=== PATIENT | female | born 1960 | race Caucasian/White ===

== ENCOUNTER 2023-11-06 20:26 | Inpatient (IN) | payer OTHER, SELFPAY ==
[2023-11-06 20:28] VITALS: BP 152/64
[2023-11-06 23:21] VITALS: BP 156/68
[2023-11-06] MEDS: NEURONTIN 800 MG PO (23:43)
[2023-11-07] VITALS (10 sets, daily range): BP systolic 111–149; BP diastolic 46–86; BMI 37.8
[2023-11-07] MEDS: NEURONTIN 900 MG PO ×2 (00:48→21:23)
[2023-11-07] MEDS: APRESOLINE 5 MG IV (00:49)
--- NOTE | 2023-11-07 03:29 | DOWNTIME ---
There was a [employer] Client Geographic Analyst Downtime on 11/07/2023 from 0100 to 11/07/2023 at 0252. Downtime documentation of patient's care, including medication administrations, has been reconciled in the electronic record per guidelines. Refer to the
patient's paper chart under the miscellaneous tab to see printed paper medication records and downtime forms.
--- NOTE | 2023-11-07 03:50 | PTCARENOTE ---
Pt. received as transfer from [facility] into room 4144. EMS reported that pt. complained of CP 3/10 during transport and recieved 4 baby aspirin and 1 SL nitro. EKG obtained in ambulance read NSR. Upon arrival, pt. reported CP had resolved.
Patient placed on tele monitor, reading NSR/sinus lucian with HR 50s-60s. Admission completed and pt oriented to room. Pt. ambulating independently in room without difficulty. Plan of care discussed and pt. verbalizes understanding. Can make needs
known. Call hodges within reach.
[2023-11-07 06:01] LABS: Hematocrit 29.4 % (37.0-47.0); Mean Corpuscular Hgb 29.3 pg (27.0-31.0); Mean Corpuscular Volume 86.2 fL (81.0-99.0); Mean Platelet Volume 11.2 fL (7.4-10.4); Platelet Count 169 10^3/uL (130-400); Red Blood Cell Count 3.41 10^6/uL (4.20-5.40); Red Cell Dist. Width 14.2 % (11.5-14.5); White Blood Cell Count 5.1 10^3/uL (4.8-10.8)
[2023-11-07 06:11] LABS: INR 1.06; PT 13.6 Sec (11.4-14.6)
[2023-11-07 06:31] LABS: ALT (SGPT) 29 U/L (0-35); AST (SGOT) 35 U/L (14-36); Albumin 3.2 g/dl (3.5-5.0); Alkaline Phosphatase 109 U/L (38-126); Blood Urea Nitrogen 15 mg/dl (7-17); Calcium 9.2 mg/dl (8.4-10.2); Carbon Dioxide 25 mmol/L (22-30); Chloride 107 mmol/L (98-107); Direct Bilirubin 0.2 mg/dl (0.0-0.4); Estimated Creatinine Clearance 82 ml/min; Glucose 130 mg/dl (70-99); HDL Cholesterol 33 mg/dl; LDL Cholesterol, Calculated 31 mg/dl; Magnesium 1.8 mg/dl (1.6-2.3); Potassium 3.9 mmol/L (3.5-5.1); Sodium 137 mmol/L (135-145); Total Bilirubin 0.8 mg/dl (0.2-1.3); Total Cholesterol 77 mg/dl (50-199); Total Protein 5.3 g/dl (6.3-8.2); Triglyceride 65 mg/dl (10-149); Very Low Density Lipoprotein 13 mg/dl (0-30); eGFR > 60.00
--- NOTE | 2023-11-07 07:16 | HPS.HSE ---
Addendum entered and electronically signed by NAVEEN Zhang 11/08/23 11:08:
Past Surgical History:
Gastric bypass (Rad-en-Y)
Original Note:
Family Physician
-
Family Physician: Gaurav Schreiber
Chief Complaint
-
Chest pain
History of Present Illness
63 y/o pleasant woman who was transferred from [facility] with hx of HI/CAD S/P PCI stent to LAD in August 2023. Pt was in Cardiac rehab @ [facility] on Sunday11/02/23 when she developed 10/10 substernal chest pain with radiation to the neck/jaw. Denies associated
SOB/diaphoresis, N/V. States she received SL NTG x3 without relief and was referred to [facility]-ED. States pain finally resolved after receiving morphine in the ED. States troponin and EKG were unrevealing, but given her hx of CAD it was felt prudent
that she received a cath. Left heart catheterization on Sunday11/04/23 revealed critical and extensively calcified mid left anterior descending as culprit vessel. Pt also had an echocardiogram which showed a moderate and moderately elevated
pulmonary artery pressure, EF 65-70%. Pt was referred to for evaluation of CABG (MIDCAB). Of note, pt is on Plavix for previous stent, last dose was Sunday11/04/2023.
Medical History
Past Medical History
Past Medical History: Reports Other
Additional Past Medical History:
-Hx HI/CAD S/P PCI with DENISSE to LAD
-[place]
-T2DM since age of 18, on insulin with hgb A1C of 7.2
-Diabetic neuropathy
-PAF S/P ablation, 2020
-PSVT S/P ablation, 2020
-HTN
-HLD
-Class 2 obesity (BMI 37.6)
Past Surgical History: Reports Other
Additional Past Surgical History:
-S/P b/l cataracts
-S/p Repair of retinal detachment, 2020
-S/P b/l carpal tunnel
-S/p Cholecystectomy
-S/P Appendectomy
-S/P Left TKA
-S/p Release of trigger finger
Social History
Unable to obtain full social history at this time due to: Other
Tobacco: Smoker (quit 35 years ago)
Alcohol: Occasional
Drug: None
Personal: (with 2 children)
Living: With Family
Employment: Disabled (x 20 yrs)
Family History
Family History: CAD (father had CABG is living @ age of 101) and Other
Allergies / Home Medications
Allergies reflects when Allergies were last updated in [facility].
Home Medications with original date entered in [facility]
Allergy/Medication List:
Adhesive tape (hives)
Fish oil (unknown)
Review of Systems
-
Unable to obtain full review of systems at this time due to: Other
A 12 point ROS was completed and negative except as noted: Yes
Cardiac: Reports Chest Pain
Physical Exam
Vital Signs
Vital Signs
Temp Pulse Resp BP Pulse Ox
97.8 F 61 18 138/51 95
11/07/23 05:50 11/07/23 05:50 11/07/23 05:50 11/07/23 05:50 11/07/23 05:50
Physical Exam
General: Well Developed and Well Nourished
HEENT: NormoCephalic, Moist mucous membranes, Atraumatic, [place] Conjunctivae and No Ptosis
Respiratory: Clear
Cardiac: S1/S2 and Regular Rhythm
Breast: Deferred by me
GI: Soft, Non Tender, Non Distended and Normal Bowel Sounds
Rectal: Deferred by Provider
Genito-urinary: Deferred by me
Skin: Warm
Neuro: Awake, Alert, Oriented and AO x 3
Psych: Calm
Laboratory Results
-
11/07/23 05:47
11/07/23 05:47
Laboratory Results
PT 13.6 Sec (11.4-14.6) 11/07/23 05:47
INR 1.06 11/07/23 05:47
APTT 32.0 Sec (23.4-35.0) 11/07/23 05:47
Total Bilirubin 0.8 mg/dl (0.2-1.3) 11/07/23 05:47
AST 35 U/L (14-36) 11/07/23 05:47
ALT 29 U/L (0-35) 11/07/23 05:47
Alkaline Phosphatase 109 U/L (38-126) 11/07/23 05:47
Data Reviewed
-
Diagnostic Radiology: Image Personally Visualized and interpreted and Report Reviewed by me
Lab Data: Labs Reviewed by me
Old Records: Requested and Reviewed
Impression/Plan
-
IMPRESSION:
63 y/o pleasant woman with severe LAD disease referred from [facility] for CABG evaluation. Of note pt's echo showed moderate , and was administered Plavix on 11/04/23
PLAN:
-CABG evaluation
-Dr. Mccoy to review imaging and see pt
-Pt will need Plavix washout
[2023-11-07 08:34] LABS: Urine Albumin Negative (Neg - Trace); Urine Bilirubin Negative (Negative); Urine Character Slightly Cloudy (Clear); Urine Color Yellow; Urine Glucose Negative (Negative); Urine Ketone Negative (Negative); Urine Leukocyte 1+ (Negative); Urine Nitrite Positive (Negative); Urine Occult Blood Negative (Negative); Urine Specific Gravity 1.015 (<1.030); Urine Urobilinogen Negative (Neg - 1+)
[2023-11-07 08:59] LABS: Urine Red Blood Cell 0-2 /HPF (0-2); Urine White Cell 30-40 /HPF (0-5)
[2023-11-07 09:00] LABS: Urine Bacteria Many (Negative)
[2023-11-07] MEDS: BETAPACE 40 MG PO ×2 (09:03→21:23)
[2023-11-07] MEDS: ASPIR LOW (ENTERIC COATED) 81 MG PO (09:03)
[2023-11-07] MEDS: VITAMIN D3 (cholecalciferol) 50 MCG PO (09:05)
[2023-11-07] MEDS: IMDUR (EXTENDED RELEASE) 60 MG PO (09:05)
[2023-11-07] MEDS: PROTONIX PO (09:06)
--- NOTE | 2023-11-07 10:24 | PTCARENOTE ---
SR HR 60s. RA. self care. no CP. at bedside. sent via stretcher for all pre op testing to be done.
--- NOTE | 2023-11-07 11:15 | CON.CAR ---
Addendum entered and electronically signed by Kale Arias MD 11/07/23 17:07:
63 yo female with CAD, prior stenting, paroxysmal A fib (prior PVI), on xarelto, moderate is admitted with unstable angina, and plans for inpatient CABG evaluation. She is chest pain free. Exam with RRR, II/ systolic murmur, no edema. Tele: NSR
60s. Echo images reviewed: EF 65%, moderate (mean grad 21, GEOVANI 1.1 cm2).
Discussed with CT surgery. Tentative plan for CABG, AVR, MAZE, clip on Sunday.
Continue ASA, heparin drip.
Original Note:
Consultation
Consultation Request
Date/Time Consultation Requested: 11/06/23 1635
Date/Time Consultation Performed: 11/07/23 1115
Requesting Provider: Isela Orellana
Performing Provider: Ashly HODGE for Dr. Arias
Reason for Consultation: CAD
Medical History
-
Chief Complaint: chest pain
History of Present Illness:
63 y/o female (follows with Dr. Bay as OP) with PMH CAD with stenting, PAF with hx ablation, ADELAIDA (no longer on CPAP after recall), dyslipidemia, and IDDM who is transferred from [facility] for eval for surgical management of her CAD
with MIDCAB. Briefly, she had hx multiple stents with most recent stenting August 2023. On Sunday11/02/23, while in cardiac rehab, she developed chest pain. Trop was unremarkable per chart. She had a left heart cath, which showed critical and
extensively calcified mid left anterior descending as culprit vessel (cardiac cath report not available to me at this time). Otherwise, echo reportedly showed EF 65-70%, moderate and moderately elevated pulmonary artery pressure (echo report also
not available to me at this time). She was transferred to evaluate for surgery as above.
Past Medical History
Past Medical History: Arrhythmias, CAD, Hypercholesterolemia and NIDDM
Social History
Tobacco: Former Smoker
Family History
Family History: CAD
Allergies / Home Medications
Allergy/AdvReac Type Severity Reaction Status Date / Time
adhesive tape Allergy Unknown Verified 11/06/23 21:28
fish oil Allergy Unknown Verified 11/06/23 21:28
�Medication �Instructions �Recorded �Confirmed �Type
atorvastatin 40 mg tablet 40 mg PO DAILY 11/06/23 11/06/23 History
cholecalciferol (vitamin D3) 50 50 mcg PO DAILY 11/06/23 11/06/23 History
mcg (2,000 unit) tablet
dexlansoprazole 60 mg 60 mg PO DAILY 11/06/23 11/06/23 History
capsule,biphase delayed release
ezetimibe 10 mg tablet 10 mg PO DAILY 11/06/23 11/06/23 History
famotidine 20 mg tablet 20 mg PO HS 11/06/23 11/06/23 History
furosemide 20 mg tablet 20 mg PO BID 11/06/23 11/06/23 History
gabapentin 300 mg capsule 900 mg PO TID 11/06/23 11/06/23 History
isosorbide mononitrate 60 mg 120 mg PO DAILY 11/06/23 11/06/23 History
tablet,extended release 24 hr
losartan 25 mg tablet 25 mg PO DAILY 11/06/23 11/06/23 History
nitroglycerin 0.4 mg sublingual 0.4 mg sublingual Q5M PRN chest 11/06/23 11/07/23 History
tablet pain
potassium chloride 20 mEq 20 meq PO DAILY 11/06/23 11/06/23 History
tablet,extended release(part/cryst)
sotalol 80 mg tablet 40 mg PO BID 11/06/23 11/06/23 History
Review of Systems
-
History Source: Patient
All other systems: Negative unless noted
Cardiac: Chest Pain
Physical Exam
Vital Signs
Temp Pulse Resp BP Pulse Ox
98.1 F 62 20 144/62 98
11/07/23 07:49 11/07/23 09:00 11/07/23 07:49 11/07/23 07:52 11/07/23 07:49
Lab Results
11/07/23 05:47
11/07/23 05:47
Physical Exam
General: Well Developed, Well Nourished and No Apparent Distress
HEENT: Normocephalic and Anicteric
Respiratory: Clear and Non Labored Respirations
Cardiac: Regular Rhythm and Murmur (II/ systolic)
Musculoskeletal: No Edema
Skin: Warm and Dry
Neuro: AO x 3
Psych: Calm
Impression / Plan
-
CAD:
-severe, with hx multiple stents (most recent August 2023), now requiring surgery. Plavix being washed out.
-continue ASA and statin
-baseline EKG ordered and reviewed SB [address]/T abnormalities
-plan per CT surgery
Aortic stenosis:
-moderate by echo report
Type I DM:
-on insulin pump
-diabetic CERAMIC COATER consulted
PAF:
-hx PVI
-on sotalol as OP- continue- follow telemetry, baseline EKG acceptable QTC
-Xarelto held for surgery- resume OAC when safe post-op. Last dose was Sunday per patient. [id number] score is at least 4 for age, DM, CAD, and female.
Dyslipidemia:
-check lipids
-continue atorvastatin and ezetimibe
ADELAIDA:
-hasn't been on CPAP after hers was recalled
-this should be reassessed in future
Data Reviewed
-
EKG: Tracing Personally Visualized and interpreted (SB at 58 BPM)
Radiology: Report Reviewed by me (CXR: No active cardiopulmonary disease.)
Labs: Labs Reviewed by me
Old Records: Reviewed (reviewed available progress note from [facility] 11/05/23- summarized in HPI above)
--- NOTE | 2023-11-07 11:30 | PTCARENOTE ---
Assumed care of pt from prev nsg shift; Pt had just arrived back on the floor from having testing completed. Pt AAOx3 w/no c/o CP or SOB. Pt able to ambulate unassisted from stretcher to chair. This RN discussed pt's insulin pump & checking glucose
levels. Pt unhappy with the need for fingerstick glucose checks when 'her meter keeps track'. Pt also doesn't keep track of her insulin dosing because 'the meter and the pump take care of that for me'. This RN spoke w/CT surgery PA & rec'd orders
for pt's own insulin pump & the wide area network systems administrator to see pt today. Discussed w/pt & pt willing to speak w/educator. Pt's VS stable w/HR in the 60's & BP 139/51. Pt is SR on telemetry monitoring. Plan of care ongoing.
--- NOTE | 2023-11-07 12:11 | CM ---
Reviewed chart. Met with Mrs. Ritter to review discharge plans. She states prior to admission she resides with her spouse in a spilt level home without any steps to enter. She states she has four steps to get to to the main living area and then ten
steps to get to bedroom/full bathroom. She states prior to admission she was independent with ambulation and adls. She states she does not have any DME in the home. She states she has a prescription plan. She states her spouse will be home to
assist in her care if needed. Medical work-up in progress. The discharge plan is to return home with her spouse when medically stable.
--- NOTE | 2023-11-07 12:37 | PN.DE.MGMTRT ---
Insulin Management
- -
11/07/2023: Diabetes Management Consult
63 y/o pleasant woman who was transferred from [facility] with hx of HI/CAD S/P PCI stent to LAD in August 2023. Pt was in Cardiac rehab @ [facility] on Sunday11/02/23 when she developed 10/10 substernal chest pain with radiation to the neck/jaw--> Cardiac cath-->
extensive LAD disease--> refereed to for CABG.
PMH: HTN, CAD/HI s/p PCI with DENISSE to LAD, PAF S/P ablation, 2020, PSVT S/P ablation 2020, HLD, IDDMx 45 years and using the insulin pump x35 yrs, Diabetic neuropathy and Class 2 obesity (BMI 37.6). Routinely sees Endo @ [facility] Dr. Thomas
Currently using Medtronic 780 G Insulin pump with Guardian Sensor and NovoLog insulin.
Pt awake, A/O x3, offers no complaints, able to discuss diabetes management.
Current glucose via sensor is 116. Pt has placed her lunch order and is waiting for her tray
Was notified by CV team that Pt was very reluctant about getting accucheks done.
Upon discussion, pt became very emotional, stating that she has been through a lot these past 4 days and wants to have some type of control over her life.
Gently explained to pt the process of using her own pump while here in the hospital, reviewed bedside worksheet and need for Nursing staff to check her blood sugars ACHS.
Current pump settings
Basal ICR ISF 12am - 12am 1:40
12am - 2am 1.80 12am - 7am 6
2am - 8pm 1.60 7am - 5pm 5 Target 90to 110
8pm - 12am 1.75 5pm - 12am 5
24 hour total 39.4 units
Explained to pt that in the event that she has been schedule for CABG, the insulin pump will be discontinued the morning of surgery and her glucose will be managed using the continuous insulin drip x48 hrs after surgery and she was agreeable.
Pt states that she does not use her basal settings when pump is in auto mode and that she only corrects and boluses at meal times
Will change to 1600cal, pt is only 5'1
Diabetes History
- -
Type of Diabetes: 2 requiring insulin
Pre-Admission Diabetes Regimen
11/07/23
05:47
Creatinine 0.7
Lab Results
Hemoglobin A1c 7.0 % (4.0-5.6) H 11/07/23 05:47
Insulin Pump Settings
IP Diabetes Regimen
11/07/23
05:47
Glucose 130 H
Meal type: Breakfast
Meal type: Breakfast
Amount consumed: 100%
Amount consumed: 100%
Patient Education
[2023-11-07] MEDS: HEPARIN 25000 UNITS/250 ML IV (16:26)
[2023-11-07 16:45] LABS: Hematocrit 32.6 % (37.0-47.0); Hemoglobin 11.3 g/dL (12.0-16.0); Mean Corp Hgb Conc. 34.7 g/dL (33.0-37.0); Mean Corpuscular Hgb 29.9 pg (27.0-31.0); Mean Corpuscular Volume 86.2 fL (81.0-99.0); Mean Platelet Volume 10.7 fL (7.4-10.4); Platelet Count 172 10^3/uL (130-400); Red Blood Cell Count 3.78 10^6/uL (4.20-5.40); Red Cell Dist. Width 14.1 % (11.5-14.5)
[2023-11-07 17:03] LABS: APTT 28.2 Sec (23.4-35.0)
[2023-11-07] MEDS: TYLENOL 650 MG PO (17:04)
[2023-11-07] MEDS: ZETIA 10 MG PO (17:06)
[2023-11-07] MEDS: LIPITOR 40 MG PO (17:06)
[2023-11-07 18:00] LABS: Glucose - Point of Care 173 mg/dl (70-99)
[2023-11-07] MEDS: PATIENT'S OWN INSULIN PUMP 5 UNITS SC (19:19)
[2023-11-07 23:03] LABS: Glucose - Point of Care 193 mg/dl (70-99)
[2023-11-07] MEDS: PATIENT'S OWN INSULIN PUMP 0.9 UNITS SC (23:06)
[2023-11-07 23:26] LABS: APTT 61.6 Sec (23.4-35.0)
[2023-11-08 05:18] VITALS: BP 118/47
[2023-11-08 05:20] VITALS: BMI 37.9
[2023-11-08 05:34] LABS: Glucose - Point of Care 134 mg/dl (70-99)
[2023-11-08 05:42] LABS: Hemoglobin 10.8 g/dL (12.0-16.0); Mean Corp Hgb Conc. 33.8 g/dL (33.0-37.0); Mean Corpuscular Volume 88.9 fL (81.0-99.0); Mean Platelet Volume 10.8 fL (7.4-10.4); Platelet Count 165 10^3/uL (130-400); Red Cell Dist. Width 14.2 % (11.5-14.5); White Blood Cell Count 4.1 10^3/uL (4.8-10.8)
[2023-11-08 06:05] LABS: APTT 90.2 Sec (23.4-35.0)
[2023-11-08 06:07] LABS: HDL Cholesterol 38 mg/dl; LDL Cholesterol, Calculated 35 mg/dl; Total Cholesterol 84 mg/dl (50-199); Triglyceride 58 mg/dl (10-149); Very Low Density Lipoprotein 11 mg/dl (0-30)
--- NOTE | 2023-11-08 06:24 | W.PN.CT ---
Today's Communication / Plan
-
-no issues overnight, no CP
-Plavix washout
-plans for AVR/CABG/maze/clip on Saturday 11/[address] Mccoy
-iv Heparin renewed
-workup ongoing
Assessment / Plan
-
-Unstable angina at Cardiac rehab @ [facility] on Sunday11/02/23- no relief with sl Nitro, improved with Morphine
-Left heart catheterization on Sunday11/04/23 revealed critical and extensively calcified mid left anterior descending as culprit vessel.
-Echocardiogram revealed a moderate and moderately elevated pulmonary artery pressure, EF 65-70%
-on Plavix for recent stent, last dose on Sunday11/05/23
-transferred to on 11/05 for evaluation for CABG and possibly AVR
-Hx MS/CAD S/P PCI with DENISSE to LAD in August 2023
-[place]
-T2DM since age of 18, on insulin with hgb A1C of 7.2
-Diabetic neuropathy
-PAF S/P ablation, 2020
-PSVT S/P ablation, 2020
-HTN
-HLD
-Class 2 obesity (BMI 37.6)
-S/P b/l cataracts
-S/p Repair of retinal detachment, 2020
-S/P b/l carpal tunnel
-S/p Cholecystectomy
-S/P Appendectomy
-S/P Left TKA
-S/p Release of trigger finger
-Gastric bypass noted on CT
Discussed patient care with: Nursing and Care Team
Subjective
-
Date of Service: November 08, 2023
Objective Data
-
Lab Results
11/08/23 05:29
11/07/23 05:47
PT 13.6 Sec (11.4-14.6) 11/07/23 05:47
INR 1.06 11/07/23 05:47
APTT 90.2 Sec (23.4-35.0) H 11/08/23 05:29
Vital Signs
Vital Signs
Temp Pulse Resp BP Pulse Ox
97.9 F 55 18 118/47 97
11/08/23 05:17 11/08/23 05:18 11/08/23 05:17 11/08/23 05:18 11/08/23 05:17
CT Intake/Output/Weight
11/07/23 11/07/23 11/08/23
06:59 18:59 06:59
Intake Total 240 / 240
Balance 240 / 240
SaO2: 97
Physical Exam
-
General: Awake and AOx3
Cardiovascular: Regular rate & rhythm, Murmur (2/6 systolic @ lsb) and No Rub
Respiratory: Decreased Breath Sounds
Extremities: No Edema
Data Reviewed
-
Lab Results: Results Reviewed
Medications: Active Meds Reviewed
Chest X-Ray: Report Reviewed and Image Reviewed
ECG: Report Reviewed and Image Reviewed
--- NOTE | 2023-11-08 06:48 | PTCARENOTE ---
Pt. remains NSR/sinus lucian on tele with HR 50s-60s. VSS. Pt. denies chest pain and SOB. Heparin gtt currently infusing at 12ml/hr. R radial cath site dry/intact with ecchymosis noted. Ambulating independently in room without difficulty. Plan
of care discussed and patient verblizes understanding. Call hodges within reach.
[2023-11-08 07:01] VITALS: BP 131/45
--- NOTE | 2023-11-08 07:28 | W.PN.CD ---
Today's Communication / Plan
-
ok to shower off UFH
OHS after plavix washout
Impression / Plan
-
CAD:
-severe, with hx multiple stents (most recent August 2023), now requiring surgery. Plavix being washed out.
-continue ASA and statin
-I reviewed angio and older films from June and August 2023. There is significant disease in prox and mid LAD, ostial cx, ramus which has ostial and distal stents both occluded, and ostial RCA (ISR from June 2023 stent procedure). I think she
should undergo as complete a revasc as possible. This would most likely mean distal LAD, either D1 or mid LAD, LPL and RCA.
Aortic stenosis:
-moderate by echo report and exam
-Strong consideration to AVR at time of CABG
Type I DM:
-on insulin pump
-diabetic TRANSFORMER ASSEMBLER consulted
PAF:
-hx PVI
-on sotalol as OP- continue- follow telemetry, baseline EKG acceptable QTC
-Xarelto held for surgery- resume OAC when safe post-op. Last dose was Sunday per patient. [id number] score is at least 4 for age, DM, CAD, and female. Currently on UFH
Dyslipidemia:
-check lipids
-continue atorvastatin and ezetimibe
ADELAIDA:
-hasn't been on CPAP after hers was recalled
-this should be reassessed in future
Physical Exam
Vital Signs/Labs
Vital Signs
Temp Pulse Resp BP Pulse Ox
97.5 F 55 18 118/47 97
11/08/23 06:59 11/08/23 05:18 11/08/23 06:59 11/08/23 05:18 11/08/23 06:59
11/07/23 11/08/23 11/09/23
06:59 06:59 06:59
Actual Weight 200 lb 2.876 oz 200 lb 9.93 oz
08/22/24 05:29
11/07/23 05:47
PT 13.6 Sec (11.4-14.6) 11/07/23 05:47
INR 1.06 11/07/23 05:47
APTT 90.2 Sec (23.4-35.0) H 11/08/23 05:29
Magnesium 1.8 mg/dl (1.6-2.3) 11/07/23 05:47
Triglycerides 58 mg/dl (10-149) 11/08/23 05:29
LDL Cholesterol, Calc 35 mg/dl 11/08/23 05:29
VLDL Cholesterol, Calc 11 mg/dl (0-30) 11/08/23 05:29
HDL Cholesterol 38 mg/dl 11/08/23 05:29
Physical Exam
Constitutional: No acute distress and Comfortable
Cardiovascular: Rhythm & rate is regular and Systolic murmur present (2/6 mid peaking murmur)
Respiratory: Respiratory effort normal, Lungs clear to auscul., Wheeze Absent and Crackles Absent
GI: Soft and Non tender
Neuro/Psych: AO x 3 and Motor deficits absent
Data Reviewed
-
Date of Service: November 08, 2023
[2023-11-08 07:52] LABS: Glucose - Point of Care 121 mg/dl (70-99)
--- NOTE | 2023-11-08 07:59 | PN.DE.MGMTRT ---
Insulin Management
- -
11/08/2023: Diabetes Management Consult Follow up
63 y/o pleasant woman who was transferred from [facility] with hx of MS/CAD S/P PCI stent to LAD in August 2023. Pt was in Cardiac rehab @ [facility] on Sunday11/02/23 when she developed 10/10 substernal chest pain with radiation to the neck/jaw--> Cardiac cath-->
extensive LAD disease--> refereed to for CABG.
PMH: HTN, CAD/MS s/p PCI with DENISSE to LAD, PAF S/P ablation, 2020, PSVT S/P ablation 2020, HLD, IDDMx 45 years and using the insulin pump x35 yrs, Diabetic neuropathy and Class 2 obesity (BMI 37.6). Routinely sees Endo @ [facility] Dr. Thomas
Currently using Medtronic 780 G Insulin pump with Guardian Sensor and NovoLog insulin and [place] advanced infusion set.
Pt awake, A/O x3, offers no complaints, oob visiting with son, able to discuss diabetes management.
Initially patient was reluctant to POC testing, preferred to rely only on her sensor. Discussed at length the difference between sensor and fingerstick. Her concern is her sensor is sometimes 30 points different from the POC. Reassured that there
may be up to a 25% allowable difference between the two.
She is doing well using her own pump while here in the hospital, reviewed bedside worksheet.
Current pump settings
Basal ICR ISF 12am - 12am 1:40
12am - 2am 1.80 12am - 7am 6
2am - 8pm 1.60 7am - 5pm 5 Target 90to 110
8pm - 12am 1.75 5pm - 12am 5
24 hour total 39.4 units
Glucose range 130 to 193 yesterday, patient did take corrections, glucose 121 fasting this AM. Will make no change to pump settings.
Patient for CABG 11/11, she is aware the insulin pump will be discontinued the morning of surgery and her glucose will be managed using the continuous insulin drip during surgery x48 hrs after surgery and she was agreeable.
Will change to 1600cal, pt is only 5'1
Diabetes History
- -
Type of Diabetes: 1
Pre-Admission Diabetes Regimen
Lab Results
Hemoglobin A1c 7.0 % (4.0-5.6) H 11/07/23 05:47
Insulin Pump Settings
IP Diabetes Regimen
11/07/23 11/07/23 11/08/23
17:59 23:01 05:33
POC Glucose 173 H 193 H 134 H
11/08/23
07:51
POC Glucose 121 H
Meal type: Lunch
Meal type: Breakfast
Meal type: Breakfast
Amount consumed: 75%
Amount consumed: 100%
Amount consumed: 100%
Patient Education
[2023-11-08] MEDS: BETAPACE 40 MG PO ×2 (08:31→19:41)
[2023-11-08] MEDS: PROTONIX PO (08:31)
[2023-11-08] MEDS: VITAMIN D3 (cholecalciferol) 50 MCG PO (08:32)
[2023-11-08] MEDS: ASPIR LOW (ENTERIC COATED) 81 MG PO (08:32)
[2023-11-08] MEDS: IMDUR (EXTENDED RELEASE) 60 MG PO (08:32)
[2023-11-08] MEDS: PATIENT'S OWN INSULIN PUMP 6 UNITS SC ×2 (08:33→18:36)
--- NOTE | 2023-11-08 09:14 | W.PN.UPDATE ---
Update Note
Progress Note Update
STS operative risk calc.
Simulated Patient Summary
Procedure Type:�CABG + AVR
PERIOPERATIVE OUTCOME ESTIMATE %
Operative Mortality 3.9%
Morbidity & Mortality 15.3%
Stroke 2.42%
Renal Failure 4.29%
Reoperation 4.71%
Prolonged Ventilation 10.7%
Deep Sternal Wound Infection 0.725%
Long Hospital Stay (>14 days) 13.1%
Short Hospital Stay (<6 days)* 17.2%
*higher values reflect a better outcome
Clinical Summary
Planned Surgery: CABG + AVR, Urgent, First cardiovascular surgery
Demographics: 63 year old, White, female, 91kg, 155cm, BMI: 37.9 kg/m�
Insurance/Payor: Medicare
Lab Values: Creatinine: 0.7 mg/dL, Hematocrit: 32%, WBC Count: 4.1 10�/�L, Platelet Count: 050190 cells/�L
PreOp Medications: Insulin diabetes control
Substance Abuse: Former smoker, Alcohol use: <=1 drink/week
Risk Factors / Comorbidities: Insulin-dependent Diabetes Mellitus, Hypertension, Family Hx of CAD
Cardiac Status: NYHA Class II, Ejection Fraction = 60%
Coronary Artery Disease: 3 vessels diseased, Unstable Angina, OR: > 21 Days
Valve Disease: Aortic Stenosis
Arrhythmia: Remote A-fib
Prev. Cardiac Interv: Previous PCI: Not at this facility
[2023-11-08 11:29] VITALS: BP 113/51
[2023-11-08 13:39] LABS: Glucose - Point of Care 181 mg/dl (70-99)
[2023-11-08] MEDS: PATIENT'S OWN INSULIN PUMP 5.1 UNITS SC (13:40)
[2023-11-08] MEDS: HEPARIN 25000 UNITS/250 ML IV (13:44)
--- NOTE | 2023-11-08 14:11 | CM ---
Reviewed chart. Met with Mrs. Ritter to review discharge plans. She states prior to admission she resides with her spouse in a spilt level home without any steps to enter. She has four steps to get to the main living area and then ten steps to get
to bedroom/full bathroom. Prior to admission she was independent with ambulation and adls. She does not have any DME in the home. She has a prescription plan. Her spouse will be home to assist in her care if needed. Medical work-up in progress.
The discharge plan is to return home with her spouse and a home visit by the Cardiothoracic Transitional Care Nurse when medically stable.
We reviewed pre-op and post-op routines. We briefly reviewed the shower instructions. She already has the Cardiac Surgery Educational Booklet. We reviewed restrictions including sternal precautions and driving restrictions. We discussed a home
visit by the Cardiothoracic Transitional Care Nurse. She is agreeable to a home visit. The plan is for CABG/AVR on Sunday, November 12, 2023.
[2023-11-08 15:13] VITALS: BP 127/47
[2023-11-08 17:55] LABS: Glucose - Point of Care 144 mg/dl (70-99)
[2023-11-08] MEDS: ZETIA 10 MG PO (18:35)
[2023-11-08] MEDS: LIPITOR 40 MG PO (18:35)
[2023-11-08 19:39] VITALS: BP 119/57
--- NOTE | 2023-11-08 21:43 | PTCARENOTE ---
Received patient for the night in the chair. Heparin infusing at 1200 units/hr. SR on the monitor. No complaints of chest pain. Ambulating in room. Call hodges within reach.
[2023-11-08] MEDS: NEURONTIN 900 MG PO (22:36)
[2023-11-08 22:41] VITALS: BP 147/58
[2023-11-08 22:43] LABS: Glucose - Point of Care 135 mg/dl (70-99)
[2023-11-08] MEDS: PATIENT'S OWN INSULIN PUMP SC (22:54)
--- NOTE | 2023-11-09 00:21 | PTCARENOTE ---
Per AccuCheck of 135, patient states that she is not giving a insulin bolus. Insulin pump still intact.
[2023-11-09 05:04] VITALS: BP 145/52
[2023-11-09 05:40] LABS: Hematocrit 30.1 % (37.0-47.0); Hemoglobin 10.3 g/dL (12.0-16.0); Mean Corp Hgb Conc. 34.2 g/dL (33.0-37.0); Mean Corpuscular Hgb 30.5 pg (27.0-31.0); Mean Corpuscular Volume 89.1 fL (81.0-99.0); Mean Platelet Volume 10.6 fL (7.4-10.4); Platelet Count 142 10^3/uL (130-400); Red Blood Cell Count 3.38 10^6/uL (4.20-5.40); White Blood Cell Count 4.6 10^3/uL (4.8-10.8)
[2023-11-09 05:52] VITALS: BMI 38.2
[2023-11-09 06:03] LABS: APTT 133.8 Sec (23.4-35.0)
--- NOTE | 2023-11-09 06:40 | W.PN.CT ---
Today's Communication / Plan
-
-no issues overnight, no CP
-Plavix washout
-plans for AVR/CABG/maze/clip on Saturday 11/[address] Mccoy
-iv Heparin renewed
Assessment / Plan
-
-Unstable angina at Cardiac rehab @ [facility] on Sunday11/02/23- no relief with sl Nitro, improved with Morphine
-Left heart catheterization on Sunday11/04/23 revealed critical and extensively calcified mid left anterior descending as culprit vessel.
-Echocardiogram revealed a moderate and moderately elevated pulmonary artery pressure, EF 65-70%
-on Plavix for recent stent, last dose on Sunday11/05/23
-transferred to on 11/05 for evaluation for CABG and possibly AVR
-Hx [place]/CAD S/P PCI with DENISSE to LAD in August 2023
-[place]
-T2DM since age of 18, on insulin with hgb A1C of 7.2
-Diabetic neuropathy
-PAF S/P ablation, 2020
-PSVT S/P ablation, 2020
-HTN
-HLD
-Class 2 obesity (BMI 37.6)
-S/P b/l cataracts
-S/p Repair of retinal detachment, 2020
-S/P b/l carpal tunnel
-S/p Cholecystectomy
-S/P Appendectomy
-S/P Left TKA
-S/p Release of trigger finger
-Gastric bypass noted on CT
Discussed patient care with: Nursing and Care Team
Subjective
-
Date of Service: November 09, 2023
Objective Data
-
Lab Results
11/09/23 05:32
11/07/23 05:47
PT 13.6 Sec (11.4-14.6) 11/07/23 05:47
INR 1.06 11/07/23 05:47
APTT 133.8 Sec (23.4-35.0) H 11/09/23 05:32
Vital Signs
Vital Signs
Temp Pulse Resp BP Pulse Ox
98.3 F 73 18 119/57 95
11/08/23 20:56 11/08/23 21:00 11/08/23 20:56 11/08/23 19:41 11/08/23 20:56
CT Intake/Output/Weight
11/08/23 11/08/23 11/09/23
06:59 18:59 06:59
Intake Total 252 / 252
Balance 252 / 252
SaO2: 95
Physical Exam
-
General: Awake and AOx3
Cardiovascular: Regular rate & rhythm, Murmur (2/6 systolic @ lsb) and No Rub
Respiratory: Decreased Breath Sounds
Extremities: No Edema
[2023-11-09 07:11] VITALS: BP 149/67
[2023-11-09 07:55] LABS: Glucose - Point of Care 156 mg/dl (70-99)
[2023-11-09] MEDS: PATIENT'S OWN INSULIN PUMP 6 UNITS SC (08:39)
[2023-11-09] MEDS: ASPIR LOW (ENTERIC COATED) 81 MG PO (08:42)
[2023-11-09] MEDS: PROTONIX PO ×2 (08:42→08:46)
[2023-11-09] MEDS: IMDUR (EXTENDED RELEASE) 60 MG PO (08:42)
[2023-11-09] MEDS: VITAMIN D3 (cholecalciferol) 50 MCG PO (08:42)
[2023-11-09] MEDS: BETAPACE 40 MG PO ×2 (08:43→19:36)
--- NOTE | 2023-11-09 09:11 | W.PN.CD ---
Today's Communication / Plan
-
doing well, euvolemic on exam
Impression / Plan
-
CAD, pending CABG/AVR/MAZE Saturday 11/11:
-severe CAD with hx multiple stents (most recent August 2023), now requiring surgery. Plavix being washed out
-continue ASA and statin
Aortic stenosis:
-moderate by echo report and exam
-AVR Sunday
HFpEF, ICM / valvular CM
- holding home lasix, diuresis PRN; appears euvolemic today
- holding home ARM periop, resume post-op as appropriate
- continue home isosorbide
Type I DM:
-A1c 7.0
-on insulin pump
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
PAF:
-hx PVI
-on sotalol as OP- continue- follow telemetry, baseline EKG acceptable QTC
-Xarelto held for surgery- resume OAC when safe post-op. Last dose was Sunday per patient. [id number] score is at least 4 for age, DM, CAD, and female. Currently on UFH
Dyslipidemia:
-LDL 35
-continue atorvastatin and ezetimibe
ADELAIDA:
-hasn't been on CPAP after hers was recalled
-this should be reassessed in future
Physical Exam
Vital Signs/Labs
Vital Signs
Temp Pulse Resp BP Pulse Ox
36.3 C 57 16 149/67 97
11/09/23 07:15 11/09/23 07:11 11/09/23 07:15 11/09/23 07:11 11/09/23 07:15
11/08/23 11/09/23 11/10/23
06:59 06:59 06:59
Actual Weight 91 kg 91.6 kg
11/09/23 05:32
11/07/23 05:47
PT 13.6 Sec (11.4-14.6) 08/21/24 05:47
INR 1.06 11/07/23 05:47
APTT 133.8 Sec (23.4-35.0) H 11/09/23 05:32
Magnesium 1.8 mg/dl (1.6-2.3) 11/07/23 05:47
Triglycerides 58 mg/dl (10-149) 11/08/23 05:29
LDL Cholesterol, Calc 35 mg/dl 11/08/23 05:29
VLDL Cholesterol, Calc 11 mg/dl (0-30) 11/08/23 05:29
HDL Cholesterol 38 mg/dl 11/08/23 05:29
Physical Exam
Constitutional: No acute distress, Comfortable and Confusion
Cardiovascular: Rhythm & rate is regular, Pedal edema is absent, JVD pressure is normal and Systolic murmur present (2/6 murmer)
Respiratory: Respiratory effort normal and Lungs clear to auscul.
Neuro/Psych: Alert, Oriented and AO x 3
Data Reviewed
-
Date of Service: November 09, 2023
Medical Decision Making: Reviewed Test Results
EKG: Report Reviewed by me
Echo: Report Reviewed by me
X-Ray/CT/US/MRI/NUC/PET: Report Reviewed by me
Medical Tests (PFT, Pathology etc): Report Reviewed by me
Labs: Labs Reviewed by me
--- NOTE | 2023-11-09 09:30 | PN.DE.MGMTRT ---
Insulin Management
- -
11/09/2023: Diabetes Management F/U:
63 y/o pleasant woman who was transferred from [facility] with hx of [place]/CAD S/P PCI stent to LAD in August 2023. Pt was in Cardiac rehab @ [facility] on Sunday11/02/23 when she developed 10/10 substernal chest pain with radiation to the neck/jaw--> Cardiac cath-->
extensive LAD disease--> refereed to for CABG.
PMH: HTN, CAD/[place] s/p PCI with DENISSE to LAD, PAF S/P ablation, 2020, PSVT S/P ablation 2020, HLD, IDDMx 45 years and using the insulin pump x35 yrs, Diabetic neuropathy and Class 2 obesity (BMI 37.6). Routinely sees Endo @ [facility] Dr. Thomas
Currently using Medtronic 780 G Insulin pump with Guardian Sensor and NovoLog insulin and Keith advanced infusion set.
Pt awake, A/O x3, offers no complaints, sitting up in bed, able to discuss diabetes management.
Initially patient was reluctant to POC testing, preferred to rely only on her sensor. Discussed at length the difference between sensor and fingerstick. Her concern is her sensor is sometimes 30 points different from the POC. Reassured that there
may be up to a 25% allowable difference between the two.
She is doing well using her own pump while here in the hospital, reviewed bedside worksheet.
Current pump settings
Basal ICR ISF 12am - 12am 1:40
12am - 2am 1.80 12am - 7am 6
2am - 8pm 1.60 7am - 5pm 5 Target 90to 110
8pm - 12am 1.75 5pm - 12am 5
24 hour total 39.4 units
Glucose range 121 to 181 yesterday, patient did take corrections, glucose 156 fasting this AM.
Will make no change to pump settings. Patient for CABG 11/11, she is aware the insulin pump will be discontinued the morning of surgery and her glucose will be managed using the continuous insulin drip during surgery x48 hrs after surgery and she
was agreeable.
Diabetes History
- -
Type of Diabetes: 2 requiring insulin
Pre-Admission Diabetes Regimen
Lab Results
Hemoglobin A1c 7.0 % (4.0-5.6) H 11/07/23 05:47
Insulin Pump Settings
IP Diabetes Regimen
11/08/23 11/08/23 11/08/23
13:38 17:53 22:42
POC Glucose 181 H 144 H 135 H
11/09/23
07:54
POC Glucose 156 H
Meal type: Breakfast
Meal type: Dinner
Amount consumed: 100%
Patient Education
--- NOTE | 2023-11-09 10:38 | CM ---
Reviewed chart. Met with and Mrs. Ritter to review discharge plans. She states she is feeling well and waiting for her surgery. Prior to admission she resides with her spouse in a spilt level home without any steps to enter. She has four
steps to get to her first level and ten steps to get to bedroom/full bathroom. Prior to admission she was independent with ambulation and adls. She does not have any DME in the home. Her spouse will be home to assist in her care if needed. Medical
work-up in progress The discharge plan is to return home with her spouse and a home visit by the Cardiothoracic Transitional Care Nurse when medically stable.
[2023-11-09 11:50] VITALS: BP 95/80
--- NOTE | 2023-11-09 12:11 | PTCARENOTE ---
Assumedcare of pt from night RN. Pt received awake and alert, sitting up in chair. VSS, CM shows NSR 50-60's, POX 97% on RA. Heparin restarted at 0730 at 1000 units/hr infusing through LH. Pt managing own insulin injections through own pump.
She offers no c/o pain or discomfort at this time. For CV SX on Sunday.
[2023-11-09 12:43] LABS: Glucose - Point of Care 109 mg/dl (70-99)
[2023-11-09] MEDS: HEPARIN 25000 UNITS/250 ML IV (12:46)
[2023-11-09 14:02] LABS: APTT 50.2 Sec (23.4-35.0)
[2023-11-09] MEDS: PATIENT'S OWN INSULIN PUMP 4.7 UNITS SC (14:48)
[2023-11-09 15:27] VITALS: BP 130/72
--- NOTE | 2023-11-09 15:29 | W.PN.UPDATE ---
Update Note
Progress Note Update
Urine culture: +E. Coli>Amoxicillin/clavulanate 500/125mg po BID x 3 days
[2023-11-09] MEDS: AUGMENTIN 500 MG/125 MG 1 TABLET PO (16:07)
[2023-11-09 17:39] LABS: Glucose - Point of Care 121 mg/dl (70-99)
[2023-11-09] MEDS: ZETIA 10 MG PO (17:39)
[2023-11-09] MEDS: LIPITOR 40 MG PO (17:39)
[2023-11-09] MEDS: PATIENT'S OWN INSULIN PUMP 5 UNITS SC (18:28)
[2023-11-09 19:30] VITALS: BP 117/65
[2023-11-09 20:34] LABS: APTT 92.4 Sec (23.4-35.0)
--- NOTE | 2023-11-09 21:14 | PTCARENOTE ---
Received patient for the night in the chair attending to her insulin pump. SR on the monitor, HR in the 60s. Heparin infusing at 1200 units/hr. Therapeutic PTT x1, will recheck at 0300. Patient has no complaints at this time. Call hodges within reach.
[2023-11-09 22:01] LABS: Glucose - Point of Care 231 mg/dl (70-99)
[2023-11-09 22:09] VITALS: BP 157/74
[2023-11-09] MEDS: NEURONTIN 900 MG PO (22:10)
[2023-11-09] MEDS: PATIENT'S OWN INSULIN PUMP 1.8 UNITS SC (22:12)
[2023-11-10] VITALS (7 sets, daily range): BP systolic 114–147; BP diastolic 54–98; BMI 38.0
[2023-11-10 04:23] LABS: APTT 91.2 Sec (23.4-35.0)
[2023-11-10 04:30] LABS: Hematocrit 28.3 % (37.0-47.0); Hemoglobin 9.7 g/dL (12.0-16.0); Mean Corp Hgb Conc. 34.3 g/dL (33.0-37.0); Mean Corpuscular Hgb 29.3 pg (27.0-31.0); Mean Corpuscular Volume 85.5 fL (81.0-99.0); Mean Platelet Volume 11.5 fL (7.4-10.4); Platelet Count 160 10^3/uL (130-400); Red Blood Cell Count 3.31 10^6/uL (4.20-5.40); Red Cell Dist. Width 14.1 % (11.5-14.5)
--- NOTE | 2023-11-10 06:31 | W.PN.CT ---
Addendum entered and electronically signed by Lul Fam MD 11/10/23 09:20:
I saw and examined the patient.
The PA's note was reviewed and I agree with the note.
Comment:
Preop for CABG, second case Sunday with Dr. Mccoy
Original Note:
Today's Communication / Plan
-
Stable overnight. No chest pain.
Plavix washout. Continue IV heparin.
Plan AVR/CABG/MAZE/LAAL on Sunday, second case, Dr. Mccoy.
E. coli UTI being treated with Augmentin
Assessment / Plan
-
-Unstable angina at Cardiac rehab @ [facility] on Sunday11/02/23- no relief with sl Nitro, improved with Morphine
-Left heart catheterization on Sunday11/04/23 revealed critical and extensively calcified mid left anterior descending as culprit vessel.
-Echocardiogram revealed a moderate and moderately elevated pulmonary artery pressure, EF 65-70%
-on Plavix for recent stent, last dose on Sunday11/05/23
-transferred to on 11/05 for evaluation for CABG and possibly AVR
-Hx [place]/CAD S/P PCI with DENISSE to LAD in August 2023
-[place]
-T2DM since age of 18, on insulin with hgb A1C of 7.2
-Diabetic neuropathy
-PAF S/P ablation, 2020
-PSVT S/P ablation, 2020
-HTN
-HLD
-Class 2 obesity (BMI 37.6)
-S/P b/l cataracts
-S/p Repair of retinal detachment, 2020
-S/P b/l carpal tunnel
-S/p Cholecystectomy
-S/P Appendectomy
-S/P Left TKA
-S/p Release of trigger finger
-Gastric bypass noted on CT
Subjective
-
Date of Service: November 10, 2023
Feels okay. No chest pain overnight. Sleeping soundly.
Objective Data
-
Lab Results
11/10/23 03:47
11/07/23 05:47
PT 13.6 Sec (11.4-14.6) 11/07/23 05:47
INR 1.06 11/07/23 05:47
APTT 91.2 Sec (23.4-35.0) H 11/10/23 03:47
Vital Signs
Vital Signs
Temp Pulse Resp BP Pulse Ox
97.7 F 57 18 147/65 99
11/10/23 03:39 11/10/23 05:00 11/10/23 03:39 11/10/23 03:39 11/10/23 03:39
CT Intake/Output/Weight
11/09/23 11/09/23 11/10/23
06:59 18:59 06:59
Intake Total 120 / 120
Balance 120 / 120
SaO2: 99
Physical Exam
-
General: Awake and Oriented
Cardiovascular: Regular rate & rhythm
Respiratory: Clear and Equal
Extremities: No Edema
Data Reviewed
-
Lab Results: Results Reviewed
Medications: Active Meds Reviewed
[2023-11-10 07:59] LABS: Glucose - Point of Care 88 mg/dl (70-99)
[2023-11-10] MEDS: PATIENT'S OWN INSULIN PUMP 4 UNITS SC (08:11)
[2023-11-10] MEDS: BETAPACE 40 MG PO ×2 (08:12→19:40)
[2023-11-10] MEDS: VITAMIN D3 (cholecalciferol) 50 MCG PO (08:13)
[2023-11-10] MEDS: ASPIR LOW (ENTERIC COATED) 81 MG PO (08:13)
[2023-11-10] MEDS: IMDUR (EXTENDED RELEASE) 60 MG PO (08:13)
[2023-11-10] MEDS: AUGMENTIN 500 MG/125 MG 1 TABLET PO ×2 (08:13→19:40)
[2023-11-10] MEDS: PROTONIX PO (08:13)
--- NOTE | 2023-11-10 09:40 | W.PN.CD ---
Today's Communication / Plan
-
-Antibiotics for UTI
-Plan for CABG next week.
Impression / Plan
-
CAD, pending CABG/AVR/MAZE Saturday 11/11:
-severe CAD with hx multiple stents (most recent August 2023), now requiring surgery. Plavix being washed out
-continue ASA and statin
-Treating UTI -E. coli�especially before the upcoming cardiothoracic surgery.
Aortic stenosis:
-moderate by echo report and exam
-AVR Sunday
HFpEF, ICM / valvular CM
- holding home lasix, diuresis PRN; appears euvolemic today
- holding home ARM periop, resume post-op as appropriate
- continue home isosorbide
Type I DM:
-A1c 7.0
-on insulin pump
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
PAF:
-hx PVI
-on sotalol as OP- continue- follow telemetry, baseline EKG acceptable QTC
-Xarelto held for surgery- resume OAC when safe post-op. Last dose was Sunday per patient. [id number] score is at least 4 for age, DM, CAD, and female. Currently on UFH
Dyslipidemia:
-LDL 35
-continue atorvastatin and ezetimibe
ADELAIDA:
-hasn't been on CPAP after hers was recalled
-this should be reassessed in future
Physical Exam
Vital Signs/Labs
Vital Signs
Temp Pulse Resp BP Pulse Ox
97.6 F 65 18 114/59 99
11/10/23 06:52 11/10/23 08:17 11/10/23 06:52 11/10/23 08:17 11/10/23 06:52
11/09/23 11/10/23 11/11/23
06:59 06:59 06:59
Actual Weight 91.6 kg 91.1 kg
11/10/23 03:47
11/07/23 05:47
PT 13.6 Sec (11.4-14.6) 11/07/23 05:47
INR 1.06 11/07/23 05:47
APTT 91.2 Sec (23.4-35.0) H 11/10/23 03:47
Magnesium 1.8 mg/dl (1.6-2.3) 11/07/23 05:47
Triglycerides 58 mg/dl (10-149) 11/08/23 05:29
LDL Cholesterol, Calc 35 mg/dl 11/08/23 05:29
VLDL Cholesterol, Calc 11 mg/dl (0-30) 11/08/23 05:29
HDL Cholesterol 38 mg/dl 11/08/23 05:29
Physical Exam
Constitutional: No acute distress and Comfortable
EENT: Anicteric and Moist mucous membranes
Cardiovascular: Rhythm & rate is regular, Pedal edema is absent, JVD pressure is normal and Systolic murmur absent
Respiratory: Respiratory effort normal, Lungs clear to auscul., Wheeze Absent and Crackles Absent
GI: Soft, Flat, Non tender and Normal bowel sounds
Neuro/Psych: Alert, Oriented and AO x 3
Other: Skin
Data Reviewed
-
Date of Service: November 10, 2023
Medical Decision Making: Reviewed Test Results, Independent Historian Assessment, Test Interpretation and Review of Case with other Provider
EKG: Tracing Personally Visualized and interpreted
Echo: Report Reviewed by me
Labs: Labs Reviewed by me
Old Records: Reviewed
[2023-11-10] MEDS: HEPARIN 25000 UNITS/250 ML IV (09:59)
--- NOTE | 2023-11-10 10:13 | PTCARENOTE ---
Rec'd pt at 0700. Pt AAOx3, sitting OOB in chair, ambulating in halls. Monitor SBR/SR. Lungs CTA. Heparin gtts infusing at 1200 units/hr. at bedside.
[2023-11-10 12:49] LABS: Glucose - Point of Care 93 mg/dl (70-99)
[2023-11-10] MEDS: PATIENT'S OWN INSULIN PUMP 4.7 UNITS SC (13:49)
[2023-11-10 17:55] LABS: Glucose - Point of Care 158 mg/dl (70-99)
[2023-11-10] MEDS: LIPITOR 40 MG PO (17:55)
[2023-11-10] MEDS: PATIENT'S OWN INSULIN PUMP 5 UNITS SC (17:55)
[2023-11-10] MEDS: ZETIA 10 MG PO (17:55)
[2023-11-10] MEDS: TYLENOL 650 MG PO (19:46)
--- NOTE | 2023-11-10 20:55 | PTCARENOTE ---
rec'd pt oob in recliner chair with c/o H/A. medicated with Tylenol with relief noted. Sinus on telemetry. heparin continued at 1400 unts/hr.
[2023-11-10 22:05] LABS: Glucose - Point of Care 163 mg/dl (70-99)
[2023-11-10] MEDS: PATIENT'S OWN INSULIN PUMP 0.9 UNITS SC (22:09)
[2023-11-10] MEDS: NEURONTIN 900 MG PO (22:09)
[2023-11-11] VITALS (7 sets, daily range): BP systolic 103–138; BP diastolic 43–74; BMI 38.0
[2023-11-11 04:12] LABS: Hematocrit 30.7 % (37.0-47.0); Hemoglobin 10.5 g/dL (12.0-16.0); Mean Corp Hgb Conc. 34.2 g/dL (33.0-37.0); Mean Corpuscular Hgb 29.2 pg (27.0-31.0); Mean Corpuscular Volume 85.5 fL (81.0-99.0); Mean Platelet Volume 11.2 fL (7.4-10.4); Platelet Count 159 10^3/uL (130-400); Red Blood Cell Count 3.59 10^6/uL (4.20-5.40); White Blood Cell Count 5.6 10^3/uL (4.8-10.8)
[2023-11-11 04:24] LABS: APTT 97.8 Sec (23.4-35.0)
--- NOTE | 2023-11-11 06:37 | W.PN.CT ---
Addendum entered and electronically signed by Lul Fam MD 11/11/23 09:27:
I saw and examined the patient.
The PA's note was reviewed and I agree with the note.
Comment:
CABG tomorrow
Original Note:
Today's Communication / Plan
-
Plan AVR/CABG/MAZE/MARTIN Clip tomorrow, second case, Dr. Mccoy.
Continue heparin drip. Will stop tomorrow morning in anticipation of surgery.
I discussed the perioperative expectations with the patient and answered her questions to her satisfaction. Dr. Mccoy will also follow-up today. Informed consent will be obtained.
N.p.o. after midnight, type and cross.
Anxious, consider anxiolytics as needed. Hold for now.
Assessment / Plan
-
-Unstable angina at Cardiac rehab @ [facility] on Sunday11/02/23- no relief with sl Nitro, improved with Morphine
-Left heart catheterization on Sunday11/04/23 revealed critical and extensively calcified mid left anterior descending as culprit vessel.
-Echocardiogram revealed a moderate and moderately elevated pulmonary artery pressure, EF 65-70%
-on Plavix for recent stent, last dose on Sunday11/05/23
-transferred to on 11/05 for evaluation for CABG and possibly AVR
-Hx OR/CAD S/P PCI with DENISSE to LAD in August 2023
-[place]
-T2DM since age of 18, on insulin with hgb A1C of 7.2
-Diabetic neuropathy
-PAF S/P ablation, 2020
-PSVT S/P ablation, 2020
-HTN
-HLD
-Class 2 obesity (BMI 37.6)
-S/P b/l cataracts
-S/p Repair of retinal detachment, 2020
-S/P b/l carpal tunnel
-S/p Cholecystectomy
-S/P Appendectomy
-S/P Left TKA
-S/p Release of trigger finger
-Gastric bypass noted on CT
Subjective
-
Date of Service: November 11, 2023
Feels okay. No chest pain overnight. Remains on heparin. Anxious.
Objective Data
-
Lab Results
11/11/23 03:54
11/07/23 05:47
PT 13.6 Sec (11.4-14.6) 11/07/23 05:47
INR 1.06 11/07/23 05:47
APTT 97.8 Sec (23.4-35.0) H 11/11/23 03:54
Vital Signs
Vital Signs
Temp Pulse Resp BP Pulse Ox
98.2 F 77 20 125/43 98
11/11/23 04:05 11/11/23 04:00 11/11/23 04:05 11/11/23 03:44 11/11/23 04:05
CT Intake/Output/Weight
11/10/23 11/10/23 11/11/23
06:59 18:59 06:59
Intake Total 684 / 828 144 / 828
Balance 684 / 828 144 / 828
SaO2: 98
Physical Exam
-
General: Awake and Oriented
Cardiovascular: Regular rate & rhythm
Respiratory: Clear and Equal
Data Reviewed
-
Lab Results: Results Reviewed
Medications: Active Meds Reviewed
[2023-11-11] MEDS: HEPARIN 25000 UNITS/250 ML IV (06:52)
[2023-11-11 07:34] LABS: Glucose - Point of Care 84 mg/dl (70-99)
[2023-11-11] MEDS: BETAPACE 40 MG PO ×2 (07:44→19:34)
[2023-11-11] MEDS: IMDUR (EXTENDED RELEASE) 60 MG PO (07:46)
[2023-11-11] MEDS: ASPIR LOW (ENTERIC COATED) 81 MG PO (07:46)
[2023-11-11] MEDS: PROTONIX 40 MG PO (07:46)
[2023-11-11] MEDS: AUGMENTIN 500 MG/125 MG 1 TABLET PO ×2 (07:46→19:34)
[2023-11-11] MEDS: VITAMIN D3 (cholecalciferol) 50 MCG PO (07:46)
[2023-11-11] MEDS: PATIENT'S OWN INSULIN PUMP SC (07:48)
[2023-11-11] MEDS: PATIENT'S OWN INSULIN PUMP 5.8 UNITS SC (07:52)
--- NOTE | 2023-11-11 08:45 | W.PN.CD ---
Today's Communication / Plan
-
-Plan for coronary bypass graft in the morning.
Impression / Plan
-
CAD, pending CABG/AVR/MAZE Saturday 11/11:
-severe CAD with hx multiple stents (most recent August 2023), now requiring surgery. Plavix being washed out
-continue ASA and statin
-Treating UTI -E. coli�especially before the upcoming cardiothoracic surgery.
Aortic stenosis:
-moderate by echo report and exam
-AVR Sunday
HFpEF, ICM / valvular CM
- holding home lasix, diuresis PRN; appears euvolemic
- holding home ARM periop, resume post-op as appropriate
- continue home isosorbide
Type I DM:
-A1c 7.0
-on insulin pump
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
PAF:
-hx PVI
-on sotalol as OP- continue- follow telemetry, baseline EKG acceptable QTC
-Xarelto held for surgery- resume OAC when safe post-op. Last dose was Sunday per patient. [id number] score is at least 4 for age, DM, CAD, and female. Currently on UFH
Dyslipidemia:
-LDL 35
-continue atorvastatin and ezetimibe
ADELAIDA:
-hasn't been on CPAP after hers was recalled
-this should be reassessed in future
Physical Exam
Vital Signs/Labs
Vital Signs
Temp Pulse Resp BP Pulse Ox
98.2 F 77 20 125/43 98
11/11/23 04:05 11/11/23 04:00 11/11/23 04:05 11/11/23 03:44 11/11/23 06:39
11/10/23 11/11/23 11/12/23
06:59 06:59 06:59
Actual Weight 91.1 kg
11/11/23 03:54
11/07/23 05:47
PT 13.6 Sec (11.4-14.6) 11/07/23 05:47
INR 1.06 11/07/23 05:47
APTT 97.8 Sec (23.4-35.0) H 11/11/23 03:54
Magnesium 1.8 mg/dl (1.6-2.3) 11/07/23 05:47
Triglycerides 58 mg/dl (10-149) 11/08/23 05:29
LDL Cholesterol, Calc 35 mg/dl 11/08/23 05:29
VLDL Cholesterol, Calc 11 mg/dl (0-30) 11/08/23 05:29
HDL Cholesterol 38 mg/dl 11/08/23 05:29
Physical Exam
Constitutional: No acute distress, Comfortable and Confusion
EENT: Anicteric and Moist mucous membranes
Cardiovascular: Rhythm & rate is regular, Pedal edema is absent, JVD pressure is normal and Systolic murmur absent
Respiratory: Respiratory effort normal, Lungs clear to auscul., Wheeze Absent and Crackles Absent
GI: Soft, Non tender and Normal bowel sounds
Neuro/Psych: Alert, Oriented and AO x 3
Data Reviewed
-
Date of Service: November 11, 2023
Medical Decision Making: Reviewed Test Results, Independent Historian Assessment, Test Interpretation and Review of Case with other Provider
EKG: Tracing Personally Visualized and interpreted
Echo: Report Reviewed by me
Medical Tests (PFT, Pathology etc): Discussed with Physician, Discussed with Patient and Discussed with Family
Labs: Labs Reviewed by me
Old Records: Reviewed
[2023-11-11 11:51] LABS: Glucose - Point of Care 109 mg/dl (70-99)
[2023-11-11] MEDS: PATIENT'S OWN INSULIN PUMP 4.6 UNITS SC (15:05)
[2023-11-11 17:00] LABS: Glucose - Point of Care 103 mg/dl (70-99)
--- NOTE | 2023-11-11 17:29 | PTCARENOTE ---
pt has been ambulating through the halls and tolerating well. pt is sr on the monitor, hr in the 60s, vss. pt offers no complaints at this time. pt educated on plan of care for the evening, including prep for OR tomorrow. heparin gtt running per
protocol, see documentation. call hodges within reach.
[2023-11-11] MEDS: LIPITOR 40 MG PO (17:36)
[2023-11-11] MEDS: PATIENT'S OWN INSULIN PUMP 5.4 UNITS SC (17:36)
[2023-11-11] MEDS: ZETIA 10 MG PO (17:37)
[2023-11-11] MEDS: PATIENT'S OWN INSULIN PUMP 0.6 UNITS SC (22:15)
[2023-11-11] MEDS: NEURONTIN 900 MG PO (22:15)
[2023-11-11 22:22] LABS: Glucose - Point of Care 161 mg/dl (70-99)
[2023-11-12] VITALS (10 sets, daily range): BP systolic 70–117; BP diastolic 40–62; BMI 38.0; BMI 37.7
--- NOTE | 2023-11-12 02:14 | PTCARENOTE ---
Pt. received at change of shift. Pt seen and assessed in room. Pt. AOx3, VS WNL., no complaints of pain at this time. CABG prep started, plan of care explained to patient. CABG scheduled for noon 11/12/23. Continuing prep and monitoring the patient.
[2023-11-12] MEDS: HEPARIN 25000 UNITS/250 ML IV (04:21)
--- NOTE | 2023-11-12 06:24 | W.CVOR.SURPR ---
CVOR Surgeon Immed Pre Op
-
I have examined this patient prior to performance of the scheduled procedure.
The patient's condition is unchanged from the time of the dictated/written History and
Physical and the patient is able to undergo the scheduled procedure.
CABG x 3 + LA MAZE + MARTIN Clip +/- Biological AVR
Risk and benefits discussed with the patient over the weekend in person.
[2023-11-12 06:26] LABS: Hematocrit 27.8 % (37.0-47.0); Hemoglobin 9.5 g/dL (12.0-16.0); Mean Corp Hgb Conc. 34.2 g/dL (33.0-37.0); Mean Corpuscular Hgb 29.2 pg (27.0-31.0); Mean Corpuscular Volume 85.5 fL (81.0-99.0); Mean Platelet Volume 11.3 fL (7.4-10.4); Platelet Count 150 10^3/uL (130-400); Red Blood Cell Count 3.25 10^6/uL (4.20-5.40); Red Cell Dist. Width 14.2 % (11.5-14.5); White Blood Cell Count 4.8 10^3/uL (4.8-10.8)
[2023-11-12] MEDS: BACTROBAN 2% OINTMENT 1 APPLIC NASAL ×2 (06:34→21:50)
[2023-11-12 07:26] LABS: APTT 100.6 Sec (23.4-35.0)
[2023-11-12 07:35] LABS: Glucose - Point of Care 153 mg/dl (70-99)
[2023-11-12] MEDS: BETAPACE 40 MG PO (09:01)
[2023-11-12] MEDS: ASPIR LOW (ENTERIC COATED) 81 MG PO (09:02)
[2023-11-12] MEDS: IMDUR (EXTENDED RELEASE) 60 MG PO (09:03)
[2023-11-12] MEDS: PROTONIX 40 MG PO (09:03)
[2023-11-12] MEDS: PATIENT'S OWN INSULIN PUMP SC ×3 (09:04→20:17)
[2023-11-12] MEDS: VITAMIN D3 (cholecalciferol) PO (09:04)
[2023-11-12] MEDS: AUGMENTIN 500 MG/125 MG PO (09:04)
--- NOTE | 2023-11-12 11:22 | PN.DE.MGMTRT ---
Insulin Management
- -
11/12/2023: Diabetes Management F/U:
63 y/o pleasant woman who was transferred from [facility] with hx of [place]/CAD S/P PCI stent to LAD in August 2023. Pt was in Cardiac rehab @ [facility] on Sunday11/02/23 when she developed 10/10 substernal chest pain with radiation to the neck/jaw--> Cardiac cath-->
extensive LAD disease--> refereed to for CABG.
PMH: HTN, CAD/[place] s/p PCI with DENISSE to LAD, PAF S/P ablation, 2020, PSVT S/P ablation 2020, HLD, IDDMx 45 years and using the insulin pump x35 yrs, Diabetic neuropathy and Class 2 obesity (BMI 37.6). Routinely sees Endo @ [facility] Dr. Thomas
Currently using Medtronic 780 G Insulin pump with Guardian Sensor and NovoLog insulin and Keith advanced infusion set.
Pt NPO after MN for OR- CABG today and is not available for interview at this time.
Pt was made aware of plans to stop the insulin pump morning of surgery and that her glucose would be managed using with continuous insulin infusion during surgery and 48 hrs post operatively, which she was agreeable to.
Will cont to monitor and closely follow.
Diabetes History
- -
Type of Diabetes: 2 requiring insulin
Pre-Admission Diabetes Regimen
Lab Results
Hemoglobin A1c 7.0 % (4.0-5.6) H 11/07/23 05:47
Insulin Pump Settings
IP Diabetes Regimen
11/11/23 11/11/23 11/11/23
11:50 16:59 22:21
POC Glucose 109 H 103 H 161 H
11/12/23
07:33
POC Glucose 153 H
Patient Education
--- NOTE | 2023-11-12 12:16 | PTCARENOTE ---
Pre op education given to patient. Heparin drip stopped, insulin pump removed, pt's teeth and jewelry removed. Pt sent w/ antibiotic. VSS. Pt transported to CVOR in CV bed accompanied by pt's spouse and a female. Report given to CVOR RN.
--- NOTE | 2023-11-12 12:51 | CM ---
pt in oR today, cm to follow.
[2023-11-12 13:40] LABS: ACT+ - POC 90 Seconds (82-134)
[2023-11-12 13:48] LABS: Urine Albumin Negative (Neg - Trace); Urine Bilirubin 1+ (Negative); Urine Character Clear (Clear); Urine Color Yellow; Urine Glucose Negative (Negative); Urine Ketone Negative (Negative); Urine Leukocyte Trace (Negative); Urine Nitrite Negative (Negative); Urine Occult Blood Negative (Negative); Urine Urobilinogen Negative (Neg - 1+)
[2023-11-12 14:24] LABS: Urine Squamous Cell 16-20 /LPF (Few)
[2023-11-12 14:26] LABS: Urine Bacteria Few (Negative)
[2023-11-12 15:16] LABS: B.E. - POC -1.2 mmol/L; Glucose - POC 109 mg/dl (65-99); HCO3 - POC 24 mmol/L (21-29); Hematocrit - POC 26 % PCV (37-47); Hemodilution- POC No; Hemoglobin Calculated - POC 8.7; Ionized Calcium - POC 1.26 mmol/L (1.12-1.27); PCO2 - POC 40 mmHg (35-45); PO2 - POC 421 mmHg (80-100); POC Comment PRE; Potassium - POC 4.1 mmol/L (3.6-5.0); Sodium - POC 143 mmol/L (135-145); pH - POC 7.38 (7.35-7.45)
[2023-11-12 15:17] LABS: ACT+ - POC 773 Seconds (82-134)
[2023-11-12 15:34] LABS: ACT+ - POC 753 Seconds (82-134)
[2023-11-12 15:53] LABS: B.E. - POC 2.1 mmol/L; Glucose - POC 140 mg/dl (65-99); HCO3 - POC 26 mmol/L (21-29); Hematocrit - POC 24 % PCV (37-47); Hemodilution- POC Yes; Hemoglobin Calculated - POC 8.2; Ionized Calcium - POC 1.04 mmol/L (1.12-1.27); O2 Saturation %Calculated-POC 99.9 5 (92-96); PCO2 - POC 37 mmHg (35-45); PO2 - POC 300 mmHg (80-100); POC Comment CPB; Sodium - POC 141 mmol/L (135-145); pH - POC 7.46 (7.35-7.45)
[2023-11-12 16:07] LABS: ACT+ - POC 592 Seconds (82-134)
[2023-11-12 16:24] LABS: B.E. - POC 0.4 mmol/L; Glucose - POC 152 mg/dl (65-99); HCO3 - POC 25 mmol/L (21-29); Hematocrit - POC 23 % PCV (37-47); Hemodilution- POC Yes; Hemoglobin Calculated - POC 7.7; O2 Saturation %Calculated-POC 99.9 5 (92-96); PCO2 - POC 42 mmHg (35-45); PO2 - POC 266 mmHg (80-100); POC Comment CPB; Potassium - POC 4.8 mmol/L (3.6-5.0); Sodium - POC 142 mmol/L (135-145); pH - POC 7.39 (7.35-7.45)
[2023-11-12 16:34] LABS: ACT+ - POC 526 Seconds (82-134)
[2023-11-12 16:56] LABS: B.E. - POC -1.1 mmol/L; Glucose - POC 178 mg/dl (65-99); HCO3 - POC 24 mmol/L (21-29); Hematocrit - POC 24 % PCV (37-47); Hemodilution- POC Yes; Hemoglobin Calculated - POC 8.2; Ionized Calcium - POC 1.09 mmol/L (1.12-1.27); O2 Saturation %Calculated-POC 99.9 5 (92-96); PCO2 - POC 42 mmHg (35-45); PO2 - POC 287 mmHg (80-100); POC Comment CPB; Potassium - POC 5.1 mmol/L (3.6-5.0); Sodium - POC 141 mmol/L (135-145); pH - POC 7.37 (7.35-7.45)
[2023-11-12 17:07] LABS: ACT+ - POC 521 Seconds (82-134)
[2023-11-12 17:29] LABS: B.E. - POC -2.8 mmol/L; Glucose - POC 125 mg/dl (65-99); HCO3 - POC 23 mmol/L (21-29); Hematocrit - POC 24 % PCV (37-47); Hemodilution- POC Yes; Hemoglobin Calculated - POC 8.3; Ionized Calcium - POC 1.12 mmol/L (1.12-1.27); O2 Saturation %Calculated-POC 99.8 5 (92-96); PCO2 - POC 46 mmHg (35-45); PO2 - POC 239 mmHg (80-100); POC Comment CPB; Potassium - POC 3.9 mmol/L (3.6-5.0); Sodium - POC 144 mmol/L (135-145); pH - POC 7.32 (7.35-7.45)
[2023-11-12 17:56] LABS: ACT+ - POC 107 Seconds (82-134)
[2023-11-12 18:26] LABS: B.E. - POC -1.7 mmol/L; Glucose - POC 90 mg/dl (65-99); HCO3 - POC 24 mmol/L (21-29); Hematocrit - POC 26 % PCV (37-47); Hemodilution- POC Yes; Hemoglobin Calculated - POC 8.8; Ionized Calcium - POC 1.23 mmol/L (1.12-1.27); O2 Saturation %Calculated-POC 99.9 5 (92-96); PCO2 - POC 41 mmHg (35-45); PO2 - POC 338 mmHg (80-100); POC Comment POST; Potassium - POC 3.5 mmol/L (3.6-5.0); Sodium - POC 146 mmol/L (135-145); pH - POC 7.37 (7.35-7.45)
--- NOTE | 2023-11-12 18:52 | W.PN.CT.SURG ---
CT Surgery Operative Note
-
CARDIAC SURGERY OPERATIVE REPORT
Preoperative Diagnosis: Aortic valve stenosis with multivessel coronary artery disease status post multiple stents and in-stent restenosis, paroxysmal atrial fibrillation
Postoperative Diagnosis: Same
Procedure(s) Performed:
1. Standard sternotomy with aortic and right atrial cannulation
2. Coronary artery bypass grafting x 3 (In situ BRUMFIELD to distal LAD, Ao to RSVG to proximal diagonal, Ao to RSVG to distal RCA)
3. Endoscopic harvest of bilateral lower extremities ultimately using the left lower extremity vein
4. Surgical aortic valve replacement (21 mm bioprosthesis)
5. Trans-esophageal echocardiography
6. Placement of temporary ventricular pacing wire
7. Modified posterior wall isolation, left atrial maze using RF ablation
8. Left atrial appendage exclusion (35 mm clip)
9. Debridement of significant calcifications around the ostium of the left and right coronary
Date of Surgery: 11/12/2023
Comorbidities:
1. Moderate aortic valve stenosis with severe mitral annular calcification and calcified root
2. Multivessel coronary artery disease status post multiple PCI and stenting with in-stent restenosis for previous myocardial infarction
3. Paroxysmal atrial fibrillation status post ablation
4. Morbidly obese with a BMI of 37
5. Diabetes mellitus, insulin-dependent
6. Hypertension
7. Hyperlipidemia
8. Status post Rad-en-Y gastric bypass surgery
Attending Surgeon: Devon Mccoy MD, MS
Assistants: Chinyere Kaufman PA-C (present and necessary to fire control assistant, retraction, suction, exposure, suture management, and wound closure under my direction) & Devon Devlin PA-C (Endo vein harvest)
Anesthesiology: Carlos Hurd MD and Vikas Rodríguez CRNA
Scrub and Circulating RNs: Henry Fierro RN, Melita Gallardo RN
Necktie Operator Pockets And Pieces: John Sesay CCP
Anesthesia: GETA
EBL: per perfusion records
Products: 2 prbc
CPB Time: 148 minutes
Aortic Cross Clamp Time: 128 minutes
Indication(s) for Procedures: This is a 63-year-old female who recently underwent stenting several months ago but and developed in-stent restenosis and chest pain in the form of angina. She has had multiple PCI procedures in the past.
Multidisciplinary team discussion between multiple chip silo tender and myself ultimately came to the consensus that multivessel revascularization as well as management of her atrial fibrillation and her aortic valve stenosis would be the best course of
action for the patient. We discussed the risk and benefits of her complex procedure and she opted to move forward with surgical intervention.
Aortic Valve Description: Calcified mostly towards the left coronary cusp with extensive infiltration into the left coronary cusp annulus extending down onto the mitral valve as part of a mitral annular calcification. There was significant boulders
of calcium overlying the superior portion of the left main os and right coronary which was debrided os.
Conduit(s) Quality:
BRUMFIELD -good/excellent flow
RSVG -good/uniform with minimal varicosities and no significant thickening
Target(s) Quality:
RCA/PDA -excellent/overall heavily calcified vessel however there was excellent flow with test dosing of antegrade at approximately 60 cc a minute at a pressure of 80 mmHg
Diag -good/smaller size vessel however given the extent of the in-stent restenosis in the proximal LAD stenosis this provided good backfilling. Test dosing antegrade had a flow of approximately 40 to 50 cc a minute at a pressure of 80 mmHg
LAD -excellent/the BRUMFIELD was grafted post the previous stent at the midportion with excellent visual flow in the LAD territory upon removal of the bulldog clamp
Findings: LVEF on intraoperative JESUS was 60% and 60% post procedure with no new regional wall motion abnormalities. There was no prosthetic PVL or AI. Due to her previous Rad-en-Y gastric bypass, a mean gradient was not able to be obtained with
JESUS from the transgastric view. However there was no obvious flow acceleration across the LVOT or turbulence across the valve. Upon inspection of her targets, the previous stent to the OM yielded a very small and atretic vessel. This was not
bypassed. Her LPL branch was also extremely small as it exited the atrial-ventricular groove and so this was not bypassed. The BRUMFIELD was harvested in a skeletonized fashion. Following bypass grafting, test dose cardioplegia was given down each
distal and confirmed patency and hemostasis, both vein graft had excellent flow with test dosing of antegrade. Her aortic valve was replaced with a total of 13 nonpledgeted 2 Ethibond sutures with 3 of those being pledgeted towards the left
coronary cusp annulus as this was healthy calcified and required heavy debridement down onto the mitral valve. The sutures were placed in inverted fashion from LVOT through annulus through sewing cuff of the valve. Both left and right coronary
ostia were visualized and unobstructed by the valve struts. There was dense calcification and boulders of calcium above the ostium of both the left main and the right coronary ostium. This required debridement in order to safely pass the valve
down across the STJ into the root. The valve sutures were secured using cor knot. Due to the extensive calcification of her root extending into her mitral annular calcification, I felt it was not safe to perform an aortic root enlargement as this
would risk a difficult hemorrhage from the suture line. Left atrial appendage was verified to be free of any thrombus or debris preoperatively and sized with 35 mm clip. This was applied flush to the base with no residual color flow on Doppler. 3
successful pairs of ablation were performed using the encompass clamp isolating the posterior wall. She did not require any inotropic support following cardiopulmonary bypass, she was anemic preoperatively with a hemoglobin in the eights requiring
blood products while on heart-lung machine, otherwise she was in sinus rhythm with an appropriate cardiac index.
Specimen(s): Aortic valve.
Prosthesis:
1. 21 mm Alvarez Inspiris Resilia aortic valve prosthesis serial number: [id number]
2. 35 mm clip to the left atrial appendage, serial #[id number]
Description of Procedure: The patient was taken to the operating room. Their identity and procedure to be performed were verified and they were positioned supine on the operating table. Induction via general anesthesia with endotracheal intubation
was performed and central venous access and arterial monitoring were inserted. A preoperative transesophageal echocardiogram was performed. The patient was then prepped and draped from chin to feet in a sterile fashion. A preoperative time-out was
performed with all members of the team present. A midline chest incision was performed along with median sternotomy. Simultaneous endoscopic access of the right lower extremity for saphenous vein harvest was obtained along with administration of an
initial 5,000 units of IV heparin, ultimately no usable vein was able to be obtained from the right lower extremity and so the left thigh was also explored and found to have much better vein conduit.. A RulTract sternal retractor was positioned to
exposure the left internal mammary bed. The mammary was harvested in a skeletonized fashion and found to have good flow. A medium clip was applied to the distal end of the mammary after dividing it. It was wrapped in a papaverine soaked RayTec and
replaced back into the left hemithorax. The RulTract was exchanged for a median sternal retractor. The innominate vein was isolated. Full heparinization was given (a total of 45,000 units). I created a pericardial well. The aortic cannulation site
was chosen where it was soft, pliable, and free of calcium. Cannulation was performed with an arterial cannula in the ascending aorta and a triple-stage venous cannula through the right atrial appendage. The arterial cannula line had an appropriate
bounce and correlating pressures with test dosing. Next, a root vent/antegrade cannula was inserted into the ascending aorta. The ACT was confirmed to be over 400 and retrograde autologous priming was performed before commencing cardiopulmonary
bypass. The SVC was dissected off of the right pulmonary artery and the oblique sinus was developed. Using the encompass clamp posterior wall isolation of the left atrium along the pulmonary veins was performed. The ligament of Melvin was
divided. The pulmonary artery was away from the aorta to facilitate a clamp site. The aortic cross-clamp was placed after decreasing the flow on the bypass and mean arterial pressure. A total of 1.2L initial dose of antegrade Del-Nido
cardioplegia solution was given and planned for re-dosing every 75 minutes as necessary. There was rapid electro-mechanical arrest of the heart at 300 cc of cardioplegia. The left ventricle was observed for distention on echocardiogram and manual
palpation. Cold slush was placed into a sponge and topically on the RV while we systemically cooled to 34 degrees centigrade. Once cardioplegia was complete and the heart was arrested, the heart was medialized and the ligament Melvin was divided
and 35 mm clip was applied flush to the base of left atrial appendage.
A suitable target on the distal left anterior descending was identified. We dissected and prepared the distal target in a similar fashion. We retrieved the BRUMFIELD from the chest and created a pericardial opening while being cognizant of the phrenic
nerve to facilitate the course of the mammary. The distal end of the mammary was prepped and beveled to size. We verified orientation and length of the DAISY and found brisk flow. An end-to-side anastomosis was created with a 8-0 prolene and secured
with a micro corknot. We temporarily released the bulldog clamp on the mammary to inspect flow. Perfusion to the LAD territory was visualized and hemostasis was confirmed. The bull clamp was replaced on the mammary. A suitable site on the proximal
diagonal branch was chosen. We dissected and prepared the distal target in a similar fashion. An end-to-side anastomosis was created with a 7-0 prolene and secured with a micro corknot. Antegrade cardioplegia was administered into the graft.
Appropriate hemostasis and flow were confirmed. The graft was measured for length to the aorta and cut. I positioned the heart to expose the distal right coronary at the posterior descending artery. A port gamble blade was used to expose the coronary and
perform the arteriotomy. Coronary Hendricks scissors were used to enlarge the incision. The saphenous vein was trimmed and beveled to an appropriate size. The distal anastomosis was performed using 7-0 prolene in an end-to-side fashion. Antegrade
cardioplegia was administered into the graft. Appropriate hemostasis and flow were confirmed. The graft was measured for length to the aorta and cut. All grafts were tested with antegrade cardioplegia and found to have excellent flow and hemostasis.
Next, Carbon dioxide was used to flood the field. I turned my attention to the aortic valve and manually identified the location of the right coronary take off. An aortotomy was made approximately 1.5cm above the sinotubular junction. The location
of both left and right coronary vessels were visualized in the root. The aortic valve was inspected and found to be heavily calcified towards the left coronary cusp into the annulus and down towards the mitral valve. The leaflets were excised and
sent for pathological assessment. The annulus was debrided of any calcium. The root and left ventricular outflow tract were thoroughly irrigated to remove any debris. Due to the level of calcification of the annulus into the mitral valve, I elected
not to perform an aortic root enlargement as this would risk significant hemorrhage. A total of 13 pledgeted nonpledgeted 2-0 ethibond annular sutures were placed [id number] circumferentially. Of these, 3 of the pledgeted sutures were placed
along the left coronary cusp annulus as this was heavily calcified and required extensive debridement. Calcium over top of the left main ostium the right coronary ostium required debridement in order to parachute the valve and safely without
disrupting the calcium unintentionally. Next, the valve sutures were brought through the sewing cuff of the prosthetic valve which as then parachuted into place. The left and right coronary ostia were visualized and were unobstructed by the valve.
A Cor-Knot device was used to secure the annular sutures. The valve was inspected and was well seated. The aortotomy was approximated with 4-0 prolene in two layers. The heart was filled and the root was distended with antegrade cardioplegia to make
final assessment of graft length and orientation. I created 2 aortotomies using a #11 blade then a 4.0mm aortic punch above the aortic suture line. The proximal anastomoses were created in an end-to-side fashion using 6-0 prolene. At the same time,
we started to re-warm to 36.5 degrees centigrade. The bulldog clamp was removed from the mammary and temporary bipolar ventricular pacing wires were placed on the base of the right ventricle. The patient was placed in a trendelenburg position and
flows on bypass were lowered. The aortic cross clamp was removed and flows were slowly brought back up. The aortotomy appeared hemostatic. All bypass grafts were inspected and were free from kinking or twisting. The distal and proximal anastomoses
appeared hemostatic. De-airing maneuvers were performed. Transesophageal echocardiography revealed no paravalvular leak and appropriate prosthetic function. Once de-airing was satisfactory, the root vent was removed. After verifying acceptable
parameters, we initiated weaning from cardiopulmonary bypass. Once we were off cardiopulmonary bypass, the venous cannulas was clamped and removed. A test dose of protamine was administered and the patient was monitored for any adverse reaction
before resuming protamine. Once half of the protamine dose was delivered, pump suckers were turned off and the systolic blood pressure was lowered for aortic decannulation. The aortic cannula was removed and pursestrings were tied down. All
cannulation sites were oversewn with a 4-0 prolene. The aortic line, proximal, and distal coronary anastomoses were hemostatic. The mammary bed was inspected and hemostasis was confirmed. Once the mediastinum was hemostatic, a 19Fr Josue drain was
placed in the left pleural cavity and two 24Fr Josue drains were placed within the pericardium. The sternum was approximated with four #7 single and three #8 double stainless steel wires. Fascia was approximated with #1 vicryl suture. The
subcutaneous, dermis and epidermis were closed in layers in a running fashion. The skin wound was cleansed and dressed.
All instrument, sponge, and needle counts were confirmed to be correct x 2 at the end of the operation. The patient was transferred to the cardiac intensive care unit in critical but stable condition.
I, Dr. Devon Mccoy, was present, scrubbed for, and performed all critical elements of this procedure.
Devon Mccoy MD, MS
Cardiothoracic Surgeon
[facility]
This operative dictation was created using the [employer] dictation system. Please excuse any grammatical, typographical, or 'sound alike' errors
--- NOTE | 2023-11-12 19:10 | W.PN.UPDATE ---
Update Note
Progress Note Update
63-year-old female was transferred from [facility] on 11/14/2023 with unstable angina and history of OR/coronary disease status post PCI/DENISSE to LAD and moderate aortic stenosis. Last dose of Plavix was 11/03 and patient
transition to IV heparin. Urine culture was positive for E. coli on 11/08 and patient was treated with Amoxil/clavulanate 500/125 mg twice daily for 3 days.
IV fluids: 1000
U.O.:� 400
Blood:� 2PRBC
Wires:� bipolar V-wire
Gtts:
�
NEURO: sedated on Precedex, pupils +2mm B/L
RESP: #8OT @24cm> 450/60%/16/5. Lungs clear B/L. 2 mediastinal (25cc on arrival) and R pleural (10cc on arrival) chest tubes to -20cm suction. Sanguineous drainage
CV: RRR +S1, S2, no S3, no�rub, no murmur. Dermabond to median sternotomy with surgical bra intact. RIJ w/[facility] locked @ 45cm. PA 38/19; CVP 8
ABD: obese w/pannus, round, soft, no BS
EXT: no edema, +1/4 DP pulses B/L, no femoral bruit, B/L LE DEBORAH wrap intact; left brachial A-line intact
: Forman with clear yellow urine
�
A/P: POD #0 s/p AVR #21mm Inspiris/CABG x 3 (BRUMFIELD to distal LAD, SVG to proximal diagonal, SVG to distal RCA)
JESUS: EF�
- wean and extubate
- will need instruction regarding antibiotic prophylaxis for dental and invasive procedures
# CAD
- will require ASA/Plavix, statin/Zetia, beta anastacia (Sotalol 40mg BID -home dose)
�
# acute surgical blood loss anemia-expected
- trend CBC
�
# T1DM (A1C 7.0) w/neuropathy
- insulin infusion x 48h
- resume home insulin pump
-resume home Gabapentin 900mg TID
# Obesity (BMI 37.7) w/hx Rad-en-Y gastric bypass
- slow introduction to foods
-watch for dumping syndrome
�# Hx AF s/p ablation 2020
- currently SR
[2023-11-12 19:13] LABS: Glucose - Point of Care 86 mg/dl (70-99)
[2023-11-12 19:21] LABS: B.E. -1.7 mmol/L; Ionized Calcium 1.16 mMOL/L (1.15-1.33); O2 Saturation % 99.5 % (94-98); PCO2 38 mmHg (32-35); PO2 151 mmHg (83-108); Sodium 140 mMOL/L (136-145); pH 7.39 (7.35-7.45)
[2023-11-12 19:33] LABS: Hematocrit 26.6 % (37.0-47.0); Hemoglobin 9.4 g/dL (12.0-16.0); Platelet Count 117 10^3/uL (130-400)
[2023-11-12 19:38] LABS: Blood Urea Nitrogen 13 mg/dl (7-17); Estimated Creatinine Clearance 82 ml/min; Glucose 81 mg/dl (70-99); Magnesium 2.3 mg/dl (1.6-2.3)
[2023-11-12 19:46] LABS: INR 1.56; PT 18.5 Sec (11.4-14.6)
[2023-11-12 19:47] LABS: APTT 37.2 Sec (23.4-35.0)
[2023-11-12 20:09] LABS: Glucose - Point of Care 134 mg/dl (70-99)
[2023-11-12] MEDS: CALCIUM CHLORIDE 10% SYRINGE 50 ML IV (20:11)
[2023-11-12] MEDS: CALCIUM CHLORIDE 10% SYRINGE 50 MG IV (20:11)
[2023-11-12] MEDS: NOVOLOG FLEXPEN SC (20:12)
[2023-11-12] MEDS: ANCEF 10 IV ×2 (20:12)
[2023-11-12] MEDS: ZETIA PO (20:13)
[2023-11-12] MEDS: LIPITOR PO (20:13)
[2023-11-12] MEDS: SENOKOT-S PO (20:14)
[2023-11-12] MEDS: PACERONE PO ×2 (20:14→23:25)
[2023-11-12] MEDS: NSS 500 IV (20:14)
[2023-11-12] MEDS: TYLENOL PO ×2 (20:14→23:22)
--- NOTE | 2023-11-12 20:19 | PTCARENOTE ---
Pt received from [facility] at 1900; Sedated and intubated; NSR rhythm on monitor; VSS; Epicardial V-wires present with pacer settings 60/10.0/2.0; Weak DP and radial pulses present; Lungs diminished at bases; ETT size 8 positioned and secured at 22 cm
right lip; Ventilator settings A/C 16/450/5 FiO2 40%; CTx3 to -20 cm wall suction draining bloody drainage - no air leak, tidaling, or crepitus noted; Hypoactive BS; Forman catheter in place draining clear, yellow urine; Left Groin puncture site
ecchymotic, approximated, and CDI, Sternal Midline Incision approximated and CDI, B/L legs wrapped in Amaury wrap - CDI; A-line in left brachial artery, [place] wilbur floated to 40 in right Cordis - all lines zeroed and level; PIVx1 #20 L Hand;
Levo/insulin/precedex infusing - see nursing flowsheets for further details; 1 U PLTs ordered and given; iCal repleted x1; See nursing documentation for further details.
CO: 3.87
CI: 2.05
SVR: 1033
[2023-11-12 21:05] LABS: Glucose - Point of Care 133 mg/dl (70-99)
[2023-11-12 21:24] LABS: B.E. -4.6 mmol/L; HCO3 20.2 mmol/L (21-28); Ionized Calcium 1.38 mMOL/L (1.15-1.33); O2 Saturation % 98.7 % (94-98); PCO2 35 mmHg (32-35); PO2 113 mmHg (83-108); Potassium 3.9 mMOL/L (3.5-5.1); pH 7.37 (7.35-7.45)
[2023-11-12] MEDS: SODIUM BICARBONATE 50 MEQ IV (21:48)
[2023-11-12] MEDS: KCL 50 IV ×2 (22:06→23:09)
[2023-11-12 22:32] LABS: Glucose - Point of Care 121 mg/dl (70-99)
[2023-11-12] MEDS: ZOFRAN 4 MG IV (22:52)
[2023-11-12 23:11] LABS: Glucose - Point of Care 120 mg/dl (70-99)
[2023-11-12] MEDS: NEURONTIN PO (23:25)
--- NOTE | 2023-11-12 23:29 | PTCARENOTE ---
CVPA Ed T aware of past CI <2.0 - states will order MVO2 to be drawn at midnight at the same time he would like H&H/PLT/ABG's drawn
--- NOTE | 2023-11-12 23:38 | PTCARENOTE ---
RT in room and pt placed on CPAP at 2335. ABG's due at 0005. Pt had a 8 beat run of SVT at 2336 that resolved on its own - CVPA Ed notified and aware.
[2023-11-13] VITALS (30 sets, daily range): BP systolic 73–152; BP diastolic 41–76; PULSE 84; O2SAT 95–98; BMI 40.0
[2023-11-13 00:10] LABS: Glucose - Point of Care 106 mg/dl (70-99)
[2023-11-13 00:17] LABS: B.E. -2.9 mmol/L; HCO3 21.9 mmol/L (21-28); Ionized Calcium 1.26 mMOL/L (1.15-1.33); O2 Saturation % 99.1 % (94-98); PCO2 37 mmHg (32-35); PO2 148 mmHg (83-108); Potassium 5.2 mMOL/L (3.5-5.1); pH 7.38 (7.35-7.45)
[2023-11-13 00:18] LABS: O2 Therapy CPAP
[2023-11-13 00:21] LABS: Hematocrit 24.4 % (37.0-47.0); Hemoglobin 8.6 g/dL (12.0-16.0); Platelet Count 148 10^3/uL (130-400)
[2023-11-13 00:26] LABS: Mixed Venous O2 Saturation 50.1 %
[2023-11-13] MEDS: SODIUM BICARBONATE 50 MEQ IV (00:30)
--- NOTE | 2023-11-13 00:41 | PTCARENOTE ---
ABG's reviewed; RT at bedside; Pt extubated at 0040; Pt placed on 6L NC.
--- NOTE | 2023-11-13 00:48 | W.PN.CT ---
Today's Communication / Plan
-
Plan:
-No major issues overnight. Hemodynamically and neurologically intact
-Successfully extubated on 11/13/23 @ 0040
-On Levophed gtt weaned to off @ 0550, on insulin gtt per protocol
-Last CI 1.96-> 1.62; MVO2 61.3%, U/O since OR (has been out for 12hrs now) 400 mL
-Cont. current meds (ASA, Plavix, Zetia; holding AM BB given postop hypotension. Will resume DOAC on POD#4 and likely d/c ASA or Plavix at that time)
-D/C swan and a-line today
-D/C jaimes today
-Telemetry phase today once off insulin gtt, will resume insulin pump once off insulin gtt. Diabetes management following
-Monitor chest tube drainage: 2Meds 310/310 (12hrs)
-Maintain cordis
-Maintain temporary V wires (will pull before d/c home)
-OOB into chair/Ambulate
Assessment / Plan
-
Assessment:
- Standard sternotomy with aortic and right atrial cannulation/CABG x 3 (In situ BRUMFIELD to distal LAD, Ao to RSVG to proximal diagonal, Ao to RSVG to distal RCA)/Endoscopic harvest of bilateral lower extremities ultimately using the left lower
extremity vein/Surgical aortic valve replacement (21 mm bioprosthesis)/Modified posterior wall isolation, left atrial maze using RF ablation/Left atrial appendage exclusion (35 mm clip)/Debridement of significant calcifications around the ostium of
the left and right coronary, by Dr. Mccoy 11/12/23, pod#1
-Multivessel coronary artery disease status post multiple PCI and stenting with in-stent restenosis for previous myocardial infarction
-Moderate aortic valve stenosis with severe mitral annular calcification and calcified root
-LVEF 60-65 preop, 70-75% postop per intraop JESUS
-Hx RI/CAD S/P PCI with DENISSE to LAD in August 2023
-[place]
-T2DM since age of 18, on insulin pump with hgb A1C of 7.2
-Diabetic neuropathy
-PAF S/P ablation, 2020
-PSVT S/P ablation, 2020
-HTN
-HLD
-Class 2 obesity (BMI 37.6)
-ADELAIDA (not on CPAP/BIPAP)
-Preop E.Coli UTI (treated with Augmentin)
-S/P b/l cataracts
-S/p Repair of retinal detachment, 2020
-S/P b/l carpal tunnel
-S/p Cholecystectomy
-S/P Appendectomy
-S/P Left TKA
-S/p Release of trigger finger
-S/P Rad-en-Y gastric bypass surgery noted on CT
-Acute postop blood loss/Anemia (received 2u PRBC's intraop and 1u PRBC postop)
-Acute postop thrombocytopenia (transfused 1 {5pk} plts)
-Acute postop atelectasis
-Acute postop hypovolemia with subsequent hypervolemia
Discussed patient care with: Cardiology, Nursing, Respiratory Therapy, Pharmacy and Care Team
Subjective
Procedure
- Standard sternotomy with aortic and right atrial cannulation/CABG x 3 (In situ BRUMFIELD to distal LAD, Ao to RSVG to proximal diagonal, Ao to RSVG to distal RCA)/Endoscopic harvest of bilateral lower extremities ultimately using the left lower
extremity vein/Surgical aortic valve replacement (21 mm bioprosthesis)/Modified posterior wall isolation, left atrial maze using RF ablation/Left atrial appendage exclusion (35 mm clip)/Debridement of significant calcifications around the ostium of
the left and right coronary, by Dr. Mccoy 11/12/23
-
Date of Service: November 13, 2023
Pt c/o mild incisional pain, otherwise feels well
Objective Data
-
PT 18.5 Sec (11.4-14.6) H 11/12/23 19:01
INR 1.56 11/12/23 19:01
APTT 37.2 Sec (23.4-35.0) H 11/12/23 19:01
Vital Signs
Vital Signs
Temp Pulse Resp BP Pulse Ox
99.9 F 96 19 73/41 100
11/13/23 00:00 11/13/23 00:15 11/13/23 00:00 11/13/23 00:00 11/13/23 00:15
CT Intake/Output/Weight
11/12/23 11/12/23 11/13/23
06:59 18:59 06:59
Intake Total 100 / 580 1030.9 / 1030.9
Output Total 400 / 400 455 / 455
Balance -300 / 180 575.9 / 575.9
SaO2: 100 (2L)
Physical Exam
-
General: Awake, Oriented and AOx3
Cardiovascular: Regular rate & rhythm, No Murmurs, No Rub and No Gallop
Respiratory: Decreased Breath Sounds (at bases)
Sternum: Stable
Incision: Clean, Dry, Intact and Dressing Intact
Extremities: Other (trace edema)
Data Reviewed
-
Lab Results: Results Reviewed
Medications: Active Meds Reviewed
Chest X-Ray: Report Reviewed and Image Reviewed
ECG: Report Reviewed and Image Reviewed
[2023-11-13] MEDS: ANCEF 5 IV ×3 (00:52→15:10)
[2023-11-13] MEDS: LOW STRENGTH ASPIRIN 81 MG PO ×2 (00:52→07:47)
[2023-11-13] MEDS: DILAUDID 0.25 MG IV ×5 (00:54→15:13)
[2023-11-13] MEDS: LEVOPHED 250 IV (01:13)
--- NOTE | 2023-11-13 01:26 | RESPNOTE ---
pt extubated at 0040 without incident, and placed on 6l/m NC. VSS, Sao2 98% HR 98, RR 12. IS done with pt. Pt achieved 500 x 3 with good effort, reinforcement needed. RN is aware. Will continue to monitor
[2023-11-13 02:09] LABS: Glucose - Point of Care 90 mg/dl (70-99)
[2023-11-13 03:53] LABS: Mixed Venous O2 Saturation 61.3 %
[2023-11-13 04:08] LABS: Hematocrit 27.7 % (37.0-47.0); Mean Corp Hgb Conc. 36.1 g/dL (33.0-37.0); Mean Corpuscular Hgb 30.7 pg (27.0-31.0); Mean Platelet Volume 11.3 fL (7.4-10.4); Platelet Count 107 10^3/uL (130-400); Red Blood Cell Count 3.26 10^6/uL (4.20-5.40); Red Cell Dist. Width 14.1 % (11.5-14.5); White Blood Cell Count 11.9 10^3/uL (4.8-10.8)
[2023-11-13 04:20] LABS: Blood Urea Nitrogen 17 mg/dl (7-17); Calcium 8.7 mg/dl (8.4-10.2); Carbon Dioxide 24 mmol/L (22-30); Chloride 112 mmol/L (98-107); Estimated Creatinine Clearance 72 ml/min; Glucose 114 mg/dl (70-99); Potassium 4.7 mmol/L (3.5-5.1); Sodium 146 mmol/L (135-145); eGFR > 60.00
[2023-11-13 04:24] LABS: Glucose - Point of Care 126 mg/dl (70-99)
--- NOTE | 2023-11-13 04:39 | PTCARENOTE ---
1 U PRBC's ordered and given - VSS throughout and no blood transfusion reactions noted. Pt's CI and BP's improved after transfusion - levo weaned down to 3 mcg/min and CI 1.96. Spoke with CVWA Ed regarding CI and magnesium levels - no need to for
dobutamine or IV magnesium repletion at this time. Additional IV calcium chloride ordered
[2023-11-13] MEDS: CALCIUM CHLORIDE 10% SYRINGE 60 MG IV (04:49)
[2023-11-13] MEDS: TYLENOL 1000 MG PO ×3 (05:34→22:27)
[2023-11-13 06:12] LABS: Glucose - Point of Care 102 mg/dl (70-99)
--- NOTE | 2023-11-13 06:26 | PTCARENOTE ---
CVPA Ed notified of low CI 1.62 - no dobutamine orders at this time; Forman catheter and [place] wilbur to remain for now; levo off at 0550 and restarted at 0615 at 1 mcg/min due to low MAP's.
[2023-11-13] MEDS: BACTROBAN 2% OINTMENT 1 APPLIC NASAL ×2 (07:37→20:18)
[2023-11-13] MEDS: LIDOCAINE 4% PATCH 1 PATCH TOPICAL (07:44)
[2023-11-13] MEDS: VITAMIN C 500 MG PO (07:46)
[2023-11-13] MEDS: NSS IV (07:46)
[2023-11-13] MEDS: PLAVIX 75 MG PO (07:46)
[2023-11-13] MEDS: MAGNESIUM OXIDE 500 MG PO ×2 (07:47→20:18)
[2023-11-13] MEDS: PACERONE 200 MG PO ×3 (07:47→22:26)
[2023-11-13] MEDS: PROTONIX 40 MG PO (07:47)
[2023-11-13] MEDS: FEOSOL 325 MG PO (07:47)
[2023-11-13] MEDS: VITAMIN D3 (cholecalciferol) 50 MCG PO (07:48)
[2023-11-13] MEDS: SENOKOT-S 1 TABLET PO ×2 (07:48→20:18)
--- NOTE | 2023-11-13 08:00 | PTCARENOTE ---
Resumed care of patient from previous RN. VSS. resting in bed at time of assessment. Drowsy but arousable. NSR rhythm on monitor. HR 90s. VSS Epicardial V-wires present set to back up rate of 60/10/2. Pulses weak. +1-2 gen edema. Lungs diminished
at baseson 2L nc. IS 500 at best. Medicated for pain. CTx3 to -20 cm wall suction draining serosang. - no air leak, tidaling, or crepitus noted. Hypoactive BS. tolerating clears. Forman catheter in place draining clear, yellow urine. minimal amount
reported to PA. All surgical sites c/d/i. left brachial mere present, as well as usual lines. PIVx1 #20. insulin infusing per glycemic protocol. Levo weaned off at time of shift change. will continue to montior.
--- NOTE | 2023-11-13 08:16 | W.PN.ANS.POP ---
Anesthesia Post Operative
- Anesthesia Post Op Note
Vital Signs Stable-See Nursing Note: Yes
Airway Patent: Yes
Adequate Pain Control: Yes
Change in Mental Status: No
Current Postoperative Nausea & Vomiting: No
Anesthesia Complications: No
General Anesthetic Recall: No
Unplanned Admission: No
Post Op Hydration Adequate: Yes
[2023-11-13 08:22] LABS: Glucose - Point of Care 100 mg/dl (70-99)
--- NOTE | 2023-11-13 08:23 | PN.DE.MGMTRT ---
Insulin Management
- -
11/13/2023: Diabetes Management Follow up:
Patient transferred from [facility] with hx of [place]/CAD S/P PCI stent to LAD in August 2023. Pt was in Cardiac rehab @ [facility] on Sunday11/02/23 when she developed 10/10 substernal chest pain with radiation to the neck/jaw--> Cardiac cath--> extensive LAD
disease--> refereed to for CABG.
PMH: HTN, CAD/[place] s/p PCI with DENISSE to LAD, PAF S/P ablation, 2020, PSVT S/P ablation 2020, HLD, IDDMx 45 years and using the insulin pump x35 yrs, Diabetic neuropathy and Class 2 obesity (BMI 37.6). Routinely sees Endo @ [facility] Dr. Thomas
Currently using Medtronic 780 G Insulin pump with Guardian Sensor and NovoLog insulin and [place] advanced infusion set.
Patient awake alert and oriented in bed. Able to discuss diabetes management plan.
POD 1 s/p CABG x 3
Currently receiving glycemic protocol IV insulin requiring .6 to 2.3 units insulin per hour. Will continue insulin infusion today and assess for readiness to transition back to insulin pump late tomorrow. Patient states she has supplies.
Diabetes History
- -
Type of Diabetes: 1
Pre-Admission Diabetes Regimen
11/12/23 11/13/23
19:01 03:44
Creatinine 0.7 0.8
Lab Results
Hemoglobin A1c 7.0 % (4.0-5.6) H 11/07/23 05:47
Insulin Pump Settings
IP Diabetes Regimen
11/12/23 11/12/23 11/12/23
19:01 19:10 20:03
Glucose 81
POC Glucose 86 134 H
11/12/23 11/12/23 11/12/23
21:04 22:30 23:09
Glucose
POC Glucose 133 H 121 H 120 H
0811/13/23 11/13/23
00:09 02:08 03:44
Glucose 114 H
POC Glucose 106 H 90
11/13/23 11/13/23 11/13/23
04:22 06:11 08:21
Glucose
POC Glucose 126 H 102 H 100 H
Meal type: Dinner
Patient Education
[2023-11-13] MEDS: NOVOLOG FLEXPEN 4 UNITS SC (09:14)
[2023-11-13 10:15] LABS: Glucose - Point of Care 113 mg/dl (70-99)
[2023-11-13 11:18] LABS: Blood Urea Nitrogen 19 mg/dl (7-17); Calcium 8.6 mg/dl (8.4-10.2); Carbon Dioxide 24 mmol/L (22-30); Chloride 109 mmol/L (98-107); Estimated Creatinine Clearance 59 ml/min; Glucose 99 mg/dl (70-99); Potassium 4.8 mmol/L (3.5-5.1); Sodium 140 mmol/L (135-145); eGFR > 60.00
[2023-11-13] MEDS: NOVOLOG FLEXPEN SC ×2 (11:48→17:17)
[2023-11-13 11:50] LABS: Glucose - Point of Care 70 mg/dl (70-99)
[2023-11-13] MEDS: FLEXBUMIN 100 IV ×2 (11:58→20:17)
[2023-11-13 12:46] LABS: ALT (SGPT) 36 U/L (0-35); AST (SGOT) 96 U/L (14-36); Albumin 2.6 g/dl (3.5-5.0); Alkaline Phosphatase 69 U/L (38-126); Direct Bilirubin 0.2 mg/dl (0.0-0.4); Total Bilirubin 0.6 mg/dl (0.2-1.3); Total Protein 4.4 g/dl (6.3-8.2)
--- NOTE | 2023-11-13 12:54 | PTCARENOTE ---
OOB to chair for lunch with assist x2. tolerated well. VSS. Remains on 2L o2 for known apical pneumo. no SOB noted by patient. will continue to monitor.
[2023-11-13 13:03] LABS: Glucose - Point of Care 93 mg/dl (70-99)
--- NOTE | 2023-11-13 13:46 | CON.INTV ---
Consultation
Consultation Request
Date/Time Consultation Requested: 11/13/2023
Date/Time Consultation Performed: 11/13/2023
Requesting Provider: Dr. Mccoy
Performing Provider: Dr. Ammon Ford
Reason for Consultation: Postoperative ICU care-status post CABG/AVR
Medical History
-
History of Present Illness:
63-year-old woman who was transferred from [facility] on 11/08/2023 who has history of coronary artery disease, prior [place], prior stents in August 2023 to [facility]. Developed acute onset chest pain on 11/02/2023 while on rehab. Underwent left
heart catheterization on 11/04/2019 for the revealing extensive calcified mid left anterior descending. Also concordant with pulmonary hypertension moderate aortic stenosis. Referred to [facility] for CABG.
Subsequently underwent coronary artery bypass and aortic valve replacement on 11/12/2023
Past Medical History
Past Medical History: Other (See assessment and plan)
Social History
Tobacco: Smoker (Quit 35 years ago)
Alcohol: Occasional
Drug: None
Personal:
Living: With Family
Employment: Disabled (20 years)
Family History
Family History: Reviewed & Not Pertinent
Allergies / Home Medications
Allergies
Allergy/AdvReac Type Severity Reaction Status Date / Time
adhesive tape Allergy Unknown Verified 11/06/23 21:28
fish oil Allergy Unknown Verified 11/06/23 21:28
Home Medications
�Medication �Instructions �Recorded �Confirmed �Last Taken �Type
atorvastatin 40 mg tablet 40 mg PO DAILY 11/06/23 11/06/23 Unknown History
cholecalciferol (vitamin D3) 50 50 mcg PO DAILY 11/06/23 11/06/23 Unknown History
mcg (2,000 unit) tablet
dexlansoprazole 60 mg 60 mg PO DAILY 11/06/23 11/06/23 Unknown History
capsule,biphase delayed release
ezetimibe 10 mg tablet 10 mg PO DAILY 11/06/23 11/06/23 Unknown History
famotidine 20 mg tablet 20 mg PO HS 11/06/23 11/06/23 Unknown History
furosemide 20 mg tablet 20 mg PO BID 11/06/23 11/06/23 Unknown History
gabapentin 300 mg capsule 900 mg PO TID 11/06/23 11/06/23 Unknown History
isosorbide mononitrate 60 mg 120 mg PO DAILY 11/06/23 11/06/23 Unknown History
tablet,extended release 24 hr
losartan 25 mg tablet 25 mg PO DAILY 11/06/23 11/06/23 Unknown History
nitroglycerin 0.4 mg sublingual 0.4 mg sublingual Q5M PRN chest 11/06/23 11/07/23 Unknown History
tablet pain
potassium chloride 20 mEq 20 meq PO DAILY 11/06/23 11/06/23 Unknown History
tablet,extended release(part/cryst)
sotalol 80 mg tablet 40 mg PO BID 11/06/23 11/06/23 Unknown History
Review of Systems
-
History Source: Patient
All other systems: Negative unless noted
Vitals / Labs / Diagnostic Testing
Vital Signs
Temp Pulse Resp BP Pulse Ox
98.4 F 84 21 131/69 95
11/13/23 11:00 11/13/23 12:00 11/13/23 12:00 11/13/23 12:00 11/13/23 12:00
Lab Data
11/13/23 03:44
11/13/23 10:16
Laboratory Results
11/12/23 11/12/23 11/13/23
19:01 21:17 00:09
PT 18.5 H
INR 1.56
APTT 37.2 H
pH 7.39 7.37 7.38
pCO2 38 H 35 37 H
pO2 151 H 113 H 148 H
HCO3 23.0 20.2 L 21.9
O2 Delivery Level Cpap
Diagnostic Testing:
Physical Exam
-
HEENT: Normocephalic
Cardiovascular: S1/S2
Respiratory: Clear and Other (Chest tube in place without air leak or excessive drainage)
GI: Soft and Non Distended
Neurology: Awake, Alert and No Motor Deficits
Skin: Warm
General: Comfortable
Assessment
-
Status post sternotomy/coronary artery bypass graft/surgical aortic valve replacement 11/12/2023
Conditions present prior admission:
History of coronary artery disease status post PCI with drug-eluting stent to LAD
Type 2 diabetes
Diabetic neuropathy
Paroxysmal atrial fibrillation status post ablation in 2020
History of supraventricular tachycardia status post ablation in 2020 as well
Hyperlipidemia
Hypertension
Obesity
Status post left total knee replacement
Status post cholecystectomy and appendectomy
Assessment and plan:
Postoperative day 1-extubated.
On low rate supplemental oxygen
sitting out of bed, denies any significant
Clear lung exam
Pain is relatively controlled on narcotics. Monitor respiratory status closely
Hemodynamically stable off vasopressors
Normal renal function and urinary output
Follow hemoglobin
No evidence for active bleeding diabetes management per nurse practitioner
Glycemic control per protocol
chest tube in place: No excessive output. No air leak noted.
Chest x-ray 11/13/2023: Right apical pneumothorax. Mild cardiomegaly. Stable.
Follow up right apical pneumothorax radiographically.
Advance diet as tolerated
DVT prophylaxis with SCDs, pharmacological prophylaxis when able.
At this point from acute care perspective. No additional recommendation from
Signed off
[2023-11-13] MEDS: FERRLECIT 110 MG IV (13:58)
[2023-11-13 14:02] LABS: Glucose - Point of Care 183 mg/dl (70-99)
[2023-11-13 15:05] LABS: Glucose - Point of Care 121 mg/dl (70-99)
[2023-11-13 17:15] LABS: Glucose - Point of Care 104 mg/dl (70-99)
[2023-11-13] MEDS: ZETIA 10 MG PO (17:17)
[2023-11-13] MEDS: LIPITOR 40 MG PO (17:17)
[2023-11-13 17:33] LABS: Mixed Venous O2 Saturation 66.9 %
[2023-11-13] MEDS: LASIX 40 MG IV (17:49)
--- NOTE | 2023-11-13 17:53 | PTCARENOTE ---
no urine output. flushed catheter and bladder scanned for nothing. IV lasix given as ordered for no urine output.
--- NOTE | 2023-11-13 18:23 | W.PN.CD ---
Today's Communication / Plan
-
Remains in sinus
Patient had previously been on sotalol 40 mg twice daily preoperatively currently on amiodarone postoperatively and metoprolol.
Will review post op plans with EP
Resume anticoasgulation when safe post op (patient was on Xarelto ). Patietn currently on ASA and Plavix. Last stent in August. Will review plans for antiplatelt therapy with CT surgery and interventional
Impression / Plan
-
CAD, pending CABG/AVR/MAZE Saturday 11/11:
-severe CAD with hx multiple stents (most recent August 2023), now requiring surgery.
-continue ASA and statin
HFpEF, CAD/
-Intra op JESUS suggested normal ventricular function will monitor.
Postop anemia. Monitor.
Type I DM:
-A1c 7.0
-on insulin pump
-diabetic AML ANALYST consulted
PAF:
-hx PVI
-on sotalol as OP ( 40mgBID) -now on amiodarone and beta-anastacia postoperatively
-Xarelto held for surgery- resume OAC when safe post-op. [id number] score is at least 4
Dyslipidemia
-Resume atorvastatin and ezetimibe postop
ADELAIDA:
-hasn't been on CPAP after hers was recalled
-this should be reassessed in future
Physical Exam
Vital Signs/Labs
Vital Signs
Temp Pulse Resp BP Pulse Ox
98 F 78 21 141/67 98
11/13/23 15:30 11/13/23 17:49 11/13/23 17:15 11/13/23 17:49 11/13/23 15:30
11/12/23 11/13/23 11/14/23
06:59 06:59 06:59
Actual Weight 91.1 kg 95.9 kg
11/13/23 03:44
11/13/23 10:16
PT 18.5 Sec (11.4-14.6) H 11/12/23 19:01
INR 1.56 11/12/23 19:01
APTT 37.2 Sec (23.4-35.0) H 11/12/23 19:01
Magnesium 2.0 mg/dl (1.6-2.3) 11/13/23 03:44
Triglycerides 58 mg/dl (10-149) 11/08/23 05:29
LDL Cholesterol, Calc 35 mg/dl 11/08/23 05:29
VLDL Cholesterol, Calc 11 mg/dl (0-30) 11/08/23 05:29
HDL Cholesterol 38 mg/dl 11/08/23 05:29
Physical Exam
Constitutional: No acute distress
Cardiovascular: Rhythm & rate is regular
Respiratory: Wheeze Absent and Rhonchi Absent
GI: Soft
Neuro/Psych: Alert
Data Reviewed
-
Date of Service: November 13, 2023
Medical Decision Making: Reviewed Test Results
Echo: Report Reviewed by me
X-Ray/CT/US/MRI/NUC/PET: Report Reviewed by me
Labs: Labs Reviewed by me
--- NOTE | 2023-11-13 20:00 | PTCARENOTE ---
assumed care of pt from previous RN. pt A&Ox4, resting in chair at time of assessment. pt noted to have flat affect. SR on tele-monitor. temp epicardial v-wires insulated. palpable peripheral pulses. generalized anasarca noted. +1 pitting edema in
b/l LE. POX 95% on 2 L NC. CTx3 (mediastinal x2, pleural x1) to -20cm wall suction, draining sanguineous drainage. abd s/n, round, obese. jaimes catheter draining clear, yellow urine. all surgical sites stable, CDI. R IJ cordis w/ KVO. CVP hooked up-
leveled, zeroed, flushed. PIV intact. see worklist for complete nursing assessment, interventions, VS, and I&Os.
[2023-11-13 20:12] LABS: Glucose - Point of Care 192 mg/dl (70-99)
[2023-11-13] MEDS: ROXICODONE 5 MG PO (20:18)
[2023-11-13] MEDS: LOPRESSOR 12.5 MG PO (20:18)
[2023-11-13 21:33] LABS: Glucose - Point of Care 194 mg/dl (70-99)
[2023-11-13 22:25] LABS: Glucose - Point of Care 167 mg/dl (70-99)
[2023-11-13] MEDS: NEURONTIN 900 MG PO (22:26)
[2023-11-14] VITALS (22 sets, daily range): BP systolic 93–135; BP diastolic 31–76; BMI 40.0
--- NOTE | 2023-11-14 | PTCARENOTE ---
assessment remains unchanged. VSS. CT drainage within appropriate limits.
[2023-11-14 00:19] LABS: Glucose - Point of Care 129 mg/dl (70-99)
[2023-11-14 02:11] LABS: Glucose - Point of Care 110 mg/dl (70-99)
[2023-11-14] MEDS: ROXICODONE 5 MG PO (02:11)
[2023-11-14] MEDS: FLEXBUMIN 100 IV (03:50)
[2023-11-14 04:00] LABS: Glucose - Point of Care 111 mg/dl (70-99)
[2023-11-14 04:19] LABS: Hematocrit 21.1 % (37.0-47.0); Hemoglobin 7.3 g/dL (12.0-16.0); Mean Corp Hgb Conc. 34.6 g/dL (33.0-37.0); Mean Corpuscular Hgb 29.9 pg (27.0-31.0); Mean Corpuscular Volume 86.5 fL (81.0-99.0); Mean Platelet Volume 11.7 fL (7.4-10.4); Platelet Count 93 10^3/uL (130-400); Red Blood Cell Count 2.44 10^6/uL (4.20-5.40); Red Cell Dist. Width 14.7 % (11.5-14.5); White Blood Cell Count 8.5 10^3/uL (4.8-10.8)
[2023-11-14 04:37] LABS: Blood Urea Nitrogen 29 mg/dl (7-17); Calcium 8.7 mg/dl (8.4-10.2); Carbon Dioxide 26 mmol/L (22-30); Chloride 103 mmol/L (98-107); Estimated Creatinine Clearance 49 ml/min; Glucose 99 mg/dl (70-99); Magnesium 2.2 mg/dl (1.6-2.3); Potassium 4.5 mmol/L (3.5-5.1); Sodium 139 mmol/L (135-145); eGFR 50.23
[2023-11-14 04:59] LABS: Glucose - Point of Care 105 mg/dl (70-99)
[2023-11-14] MEDS: TYLENOL 1000 MG PO ×3 (05:04→22:27)
[2023-11-14] MEDS: FLEXERIL 5 MG PO (05:04)
--- NOTE | 2023-11-14 05:15 | W.PN.CT ---
Today's Communication / Plan
-
-pod #2
-no issues overnight
-CT output: 2 meds 120/270 and L pleur 35/70 in 12/24 hrs. No air leak noted
-small R ptx on CXR 11/12-? resolved today. Follow Radiology report
-wt is up 11 lbs on 11/12 from preop. Got 40 iv Lasix last night - UO 685/825 in 12/24 hrs. Consider bid 40 iv Lasix
-Cr trended up - 1.2 today (1.0 on 11/12, 0.7 preop)
-h/h 7.3/21.1 today (10.0 on 11/12 after 1 pRBC for hg 8.6; 9.5 preop)
-follow platelets - 93K today (107-148 on 11/12, 117 on 11/11)
-current meds (ASA, Plavix, Lipitor, Zetia, Lopressor 12.5 bid, Amio 200 tid, Protonix). Preop was on Sotalol 40 bid
-encourage IS, OOB
Assessment / Plan
-
Assessment:
- Standard sternotomy with aortic and right atrial cannulation/CABG x 3 (In situ BRUMFIELD to distal LAD, Ao to RSVG to proximal diagonal, Ao to RSVG to distal RCA)/Endoscopic harvest of bilateral lower extremities ultimately using the left lower
extremity vein/Surgical aortic valve replacement (21 mm bioprosthesis)/Modified posterior wall isolation, left atrial maze using RF ablation/Left atrial appendage exclusion (35 mm clip)/Debridement of significant calcifications around the ostium of
the left and right coronary, by Dr. Mccoy 11/12/23, pod#2
-Multivessel coronary artery disease status post multiple PCI and stenting with in-stent restenosis for previous myocardial infarction
-Moderate aortic valve stenosis with severe mitral annular calcification and calcified root
-LVEF 60-65 preop, 70-75% postop per intraop JESUS
-Hx [place]/CAD S/P PCI with DENISSE to LAD in August 2023
-[place]
-T2DM since age of 18, on insulin pump with hgb A1C of 7.2
-Diabetic neuropathy
-PAF S/P ablation, 2020
-PSVT S/P ablation, 2020
-Loop recorder on CXR
-HTN
-HLD
-Class 2 obesity (BMI 37.6)
-ADELAIDA (not on CPAP/BIPAP)
-Preop E.Coli UTI (treated with Augmentin)
-S/P b/l cataracts
-S/p Repair of retinal detachment, 2020
-S/P b/l carpal tunnel
-S/p Cholecystectomy
-S/P Appendectomy
-S/P Left TKA
-S/p Release of trigger finger
-S/P Rad-en-Y gastric bypass surgery noted on CT
-Acute postop blood loss/Anemia (received 2u PRBC's intraop and 1u PRBC postop)
-Acute postop thrombocytopenia (transfused 1 {5pk} plts)
-Acute postop atelectasis
-Acute postop hypovolemia with subsequent hypervolemia
-ADAM
Discussed patient care with: Nursing and Care Team
Subjective
Procedure
- Standard sternotomy with aortic and right atrial cannulation/CABG x 3 (In situ BRUMFIELD to distal LAD, Ao to RSVG to proximal diagonal, Ao to RSVG to distal RCA)/Endoscopic harvest of bilateral lower extremities ultimately using the left lower
extremity vein/Surgical aortic valve replacement (21 mm bioprosthesis)/Modified posterior wall isolation, left atrial maze using RF ablation/Left atrial appendage exclusion (35 mm clip)/Debridement of significant calcifications around the ostium of
the left and right coronary, by Dr. Mccoy 11/12/23
-
Date of Service: November 14, 2023
Objective Data
-
Lab Results
11/14/23 03:58
11/14/23 03:58
PT 18.5 Sec (11.4-14.6) H 11/12/23 19:01
INR 1.56 11/12/23 19:01
APTT 37.2 Sec (23.4-35.0) H 11/12/23 19:01
Vital Signs
Vital Signs
Temp Pulse Resp BP Pulse Ox
100.1 F 82 25 126/52 91
11/14/23 04:57 11/14/23 04:00 11/14/23 04:00 11/14/23 04:00 11/14/23 04:57
CT Intake/Output/Weight
11/13/23 11/13/23 11/14/23
06:59 18:59 06:59
Intake Total 1650.1 / 1650.1 626.2 / 845.9 219.7 / 845.9
Output Total 775 / 775 325 / 1165 840 / 1165
Balance 875.1 / 875.1 301.2 / -319.1 -620.3 / -319.1
SaO2: 91
Physical Exam
-
General: Awake and AOx3
Cardiovascular: Regular rate & rhythm, No Murmurs and No Rub
Respiratory: Decreased Breath Sounds
Sternum: Stable
Incision: Clean, Dry and Dressing Intact
Extremities: Edema +1 (2+ DPs b/l)
Abdomen: soft, nontender, nondistended, + bowel sounds
Data Reviewed
-
Lab Results: Results Reviewed
Medications: Active Meds Reviewed
Chest X-Ray: Report Reviewed and Image Reviewed
ECG: Report Reviewed and Image Reviewed
[2023-11-14 06:00] LABS: Glucose - Point of Care 84 mg/dl (70-99)
[2023-11-14 07:09] LABS: Glucose - Point of Care 131 mg/dl (70-99)
[2023-11-14 08:09] LABS: Glucose - Point of Care 132 mg/dl (70-99)
--- NOTE | 2023-11-14 08:09 | W.PN.CD ---
Today's Communication / Plan
-
Repeat CBC.
If drop in Hbg is true, would transfuse 2 units.
Aggressively diurese in the context of worsening anemia (somewhat dilutional), rising creatinine and a > 5 kg weight gain from baseline.
Impression / Plan
-
Impression/Plan: 63 y/o female with IDDM1, PAF s/p prior PVI, HLD, untreated ADELAIDA, HFpEF, moderate and CAD s/p recent PCI (August 2023) admitted with unstable angina, now s/p CABG/AVR/MAZE/LAAE.
#CAD/Unstable Angina
-Acute on chronic.
-Prior PCI to LAD.
-S/P 3V CABG (BRUMFIELD to LAD, SVG to D1, SVG to dRCA) with Dr. Mccoy, 11/12/2023.
-Routine post operative management.
-Encourage incentive spirometry, ambulation.
-Aggressive secondary prevention, including high dose, high potency statin.
-Continue post operative amiodarone.
-Continue metoprolol.
#Moderate
-Chronic.
-S/P #21 Alvarez Inspiris Resilia AVR (SN [id number]) with Dr. Mccoy, 11/12/2023.
-Post operative care as above.
#PAF
-Currently in NSR.
-Rhythm control via prior remote PVI, now S/P MAZE with Dr. Mccoy, 11/12/2023.
-Rate control with amiodarone and metoprolol.
-CHADS2-Vasc = 6 (CHF, HTN, Age x1, DM, Vascular Disease, Female).
-Therapeutic anticoagulation on hold.
#HFpEF
-Acute on chronic.
-Agree with diuresis.
-Consider uptitration of GDMT (including SGLT2i).
#Anemia
-Acute blood loss anemia secondary to surgery.
-S/P 2 units PRBC's and 1 unit of platelets in surgery.
-S/P 1 unit PRBC's on 11/13/2023 @ 01:05.
-Hbg dropped to 7.3 this morning (rasmussen cellular drop).
-Repeat CBC. If true decrease in Hbg, would transfuse 2 units and aggressively diurese.
#Type I DM
-Chronic.
-HbA1c = 7.0%.
-Continue insulin pump.
-Diabetic RETAIL SALES PROFESSIONAL consulted.
#Dyslipidemia
-Chronic, stable.
-Resume atorvastatin and ezetimibe postop.
#ADELAIDA
-Chronic, untreated.
-Has not been on CPAP after hers was recalled.
-Outpatient reassessment.
Subjective/Interval History:
Weight is up 5.4 kg from acosta (95.9 kg <-- 90.5 kg).
Furosemide 40 mg IV given yesterday.
SaO2 92% on 2LNC.
Additional furosemide 60 mg IV given this morning.
Hbg dropped to 7.3 this morning.
Platelets dropped to 93k.
Creatinine up to 1.2.
DATA:
Intraoperative JESUS, 11/12/2023:
CONCLUSIONS
Moderate aortic stenosis. Mild aortic regurgitation. Valve annulus 21 mm.
Normal left ventricular size and systolic function, mild LVH, stage I diastolic
function.
No thrombus seen at left atrial appendage.
The aorta has atheroma less than 5 mm and moderate calcifications.
Severe MAC, trace MR.
Moderate left atrial enlargement.
POST OPERATIVE FINDINGS
Status post aortic valve replacement with 21 mm bioprosthetic aortic valve, the
valve is well-seated, no perivalvular leak, leaflets are functioning well. No
intra valvular regurgitation. Gradient could not be obtained because no
transgastric views were possible.
Status post CABG x 3, the left ventricle is vigorously yevgeniy, EF 70 to
75%. No regional wall motion abnormalities seen.
Status post left atrial appendage exclusion, no flow seen through the left
atrial appendage remnant.
Trace MR. Trace TR.
Normal right ventricular function.
Physical Exam
Vital Signs/Labs
Vital Signs
Temp Pulse Resp BP Pulse Ox
37.8 C 84 25 110/47 93
11/14/23 04:57 11/14/23 07:00 11/14/23 05:00 11/14/23 07:00 11/14/23 07:00
11/12/23 11/13/23 11/14/23
11:59 11:59 11:59
Actual Weight 90.5 kg 95.9 kg 95.9 kg
11/14/23 03:58
11/14/23 03:58
PT 18.5 Sec (11.4-14.6) H 11/12/23 19:01
INR 1.56 11/12/23 19:01
APTT 37.2 Sec (23.4-35.0) H 11/12/23 19:01
Magnesium 2.2 mg/dl (1.6-2.3) 11/14/23 03:58
Triglycerides 58 mg/dl (10-149) 11/08/23 05:29
LDL Cholesterol, Calc 35 mg/dl 11/08/23 05:29
VLDL Cholesterol, Calc 11 mg/dl (0-30) 11/08/23 05:29
HDL Cholesterol 38 mg/dl 11/08/23 05:29
Physical Exam
Constitutional: No acute distress and Comfortable
EENT: Anicteric and Moist mucous membranes
Cardiovascular: Rhythm & rate is regular, Pedal edema present, S1S2 is normal and Murmur/rub/gallop absent
Respiratory: Respiratory effort normal and Other (Decreased throughout.)
GI: Soft, Distention absent, Flat, Non tender and Normal bowel sounds
Neuro/Psych: AO x 3
Data Reviewed
-
Date of Service: November 14, 2023
Medical Decision Making: Reviewed Test Results, Independent Historian Assessment, Test Interpretation and Review of Case with other Provider
EKG: Tracing Personally Visualized and interpreted and Report Reviewed by me
Echo: Report Reviewed by me
X-Ray/CT/US/MRI/NUC/PET: Image Personally Visualized and interpreted and Report Reviewed by me
Labs: Labs Reviewed by me
[2023-11-14] MEDS: NOVOLOG FLEXPEN 4 UNITS SC (08:15)
[2023-11-14] MEDS: LASIX 60 MG IV (08:15)
[2023-11-14] MEDS: NOVOLIN R INSULIN INFUSION 100 IV (08:19)
--- NOTE | 2023-11-14 08:19 | PN.DE.MGMTRT ---
Insulin Management
- -
11/14/2023: Diabetes Management Follow up:
Patient transferred from [facility] with hx of [place]/CAD S/P PCI stent to LAD in August 2023. Pt was in Cardiac rehab @ [facility] on Sunday11/02/23 when she developed 10/10 substernal chest pain with radiation to the neck/jaw--> Cardiac cath--> extensive LAD
disease--> refereed to for CABG.
PMH: HTN, CAD/[place] s/p PCI with DENISSE to LAD, PAF S/P ablation, 2020, PSVT S/P ablation 2020, HLD, IDDMx 45 years and using the insulin pump x35 yrs, Diabetic neuropathy and Class 2 obesity (BMI 37.6). Routinely sees Endo @ [facility] Dr. Thomas
Currently using Medtronic 780 G Insulin pump with Guardian Sensor and NovoLog insulin and [place] advanced infusion set.
Patient awake alert and oriented in bed. Able to discuss diabetes management plan.
POD 2 s/p CABG x 3 doing well, cr 1.2, eGFR 50.23.
Currently receiving glycemic protocol IV insulin requiring .7 to 3 units insulin per hour. Will continue insulin infusion until after lunch then transition back to insulin pump. Patient states she has supplies and feels confident she can insert
new infusion set. Once infusion set is inserted after lunch glycemic protocol to continue for one hour then be stopped. Patient to bolus for meals and corrections.
Diabetes History
- -
Type of Diabetes: 1
Pre-Admission Diabetes Regimen
11/13/23 11/14/23
10:16 03:58
Creatinine 1.0 1.2 H
Lab Results
Hemoglobin A1c 7.0 % (4.0-5.6) H 11/07/23 05:47
Insulin Pump Settings
IP Diabetes Regimen
11/13/23 11/13/23 11/13/23
08: 10:12 10:16
Glucose 99
POC Glucose 100 H 113 H
11/13/23 11/13/23 11/13/23
11:48 13:02 14:00
Glucose
POC Glucose 70 93 183 H
11/13/23 11/13/23 11/13/23
15:04 17:14 20:10
Glucose
POC Glucose 121 H 104 H 192 H
11/13/23 11/13/23 11/14/23
21: 22:23 00:15
Glucose
POC Glucose 194 H 167 H 129 H
11/14/23 11/14/23 11/14/23
02:08 03:58 04:56
Glucose 99
POC Glucose 110 H 111 H 105 H
11/14/23 11/14/23 11/14/23
05:58 07:08 08:08
Glucose
POC Glucose 84 131 H 132 H
Meal type: Dinner
Amount consumed: 90%
Patient Education
--- NOTE | 2023-11-14 08:45 | PTCARENOTE ---
assumed care of pt from previous shift RN, sinus rhythm on tele w PACs, BP 106/56, + peripheral pulses, +1 edema to bilateral lower extremities, epicardial V wire insulated. Lungs diminished, pox 92% on 2L NC, coughing and deep breathing encouraged.
+bs, tolerating PO intake, jaimes catheter draining amara. Post op surgical sites stable, CT x3 draining minimal drainage. Right IJ cordis w KvO infusing, PIV flushes easily. plan of care reviewed w the pt and questions encouraged.
DRIPS:
Insulin titrated per glycemic protocol
[2023-11-14] MEDS: LOPRESSOR 12.5 MG PO ×2 (09:04→19:57)
[2023-11-14] MEDS: MAGNESIUM OXIDE 500 MG PO ×2 (09:04→19:57)
[2023-11-14] MEDS: PROTONIX 40 MG PO (09:05)
[2023-11-14] MEDS: VITAMIN C 500 MG PO (09:05)
[2023-11-14] MEDS: PLAVIX 75 MG PO (09:05)
[2023-11-14] MEDS: PACERONE 200 MG PO ×3 (09:05→22:27)
[2023-11-14] MEDS: FEOSOL 325 MG PO (09:05)
[2023-11-14] MEDS: SENOKOT-S 1 TABLET PO ×2 (09:05→19:57)
[2023-11-14] MEDS: VITAMIN D3 (cholecalciferol) 50 MCG PO (09:05)
[2023-11-14] MEDS: LOW STRENGTH ASPIRIN 81 MG PO (09:05)
[2023-11-14] MEDS: BACTROBAN 2% OINTMENT 1 APPLIC NASAL ×2 (09:06→19:58)
[2023-11-14] MEDS: LIDOCAINE 4% PATCH 1 PATCH TOPICAL (09:06)
--- NOTE | 2023-11-14 09:52 | PTCARENOTE ---
Pt assisted back to bed, RP CT removed as ordered.
[2023-11-14 09:54] LABS: Hematocrit 20.4 % (37.0-47.0); Hemoglobin 7.1 g/dL (12.0-16.0); Mean Corp Hgb Conc. 34.8 g/dL (33.0-37.0); Mean Corpuscular Hgb 30.3 pg (27.0-31.0); Mean Corpuscular Volume 87.2 fL (81.0-99.0); Mean Platelet Volume 11.2 fL (7.4-10.4); Platelet Count 100 10^3/uL (130-400); Red Blood Cell Count 2.34 10^6/uL (4.20-5.40); White Blood Cell Count 8.2 10^3/uL (4.8-10.8)
[2023-11-14 10:40] LABS: Glucose - Point of Care 128 mg/dl (70-99)
[2023-11-14] MEDS: DEXTROSE 50% SYRINGE 12.5 GRAMS IV (12:42)
[2023-11-14] MEDS: NOVOLOG FLEXPEN SC (12:46)
--- NOTE | 2023-11-14 12:55 | PTCARENOTE ---
PRBC transfusion initiated as ordered. Pt's BG with pre meal check was 47, hypoglycemia tx provided as ordered, recheck was 133. Pt is eating lunch.
[2023-11-14] MEDS: CALCIUM GLUCONATE 100 IV (13:45)
[2023-11-14 13:59] LABS: Glucose - Point of Care 47 mg/dl (70-99)
[2023-11-14 13:59] LABS: Glucose - Point of Care 133 mg/dl (70-99)
[2023-11-14] MEDS: FERRLECIT 110 MG IV (14:49)
[2023-11-14 15:17] LABS: Hematocrit 24.9 % (37.0-47.0); Hemoglobin 8.7 g/dL (12.0-16.0); Mean Corp Hgb Conc. 34.9 g/dL (33.0-37.0); Mean Corpuscular Hgb 30.3 pg (27.0-31.0); Mean Corpuscular Volume 86.8 fL (81.0-99.0); Mean Platelet Volume 11.7 fL (7.4-10.4); Platelet Count 95 10^3/uL (130-400); Red Blood Cell Count 2.87 10^6/uL (4.20-5.40); Red Cell Dist. Width 14.5 % (11.5-14.5)
[2023-11-14 15:25] LABS: Blood Urea Nitrogen 31 mg/dl (7-17); Calcium 9.7 mg/dl (8.4-10.2); Carbon Dioxide 26 mmol/L (22-30); Chloride 101 mmol/L (98-107); Estimated Creatinine Clearance 46 ml/min; Glucose 181 mg/dl (70-99); Potassium 4.4 mmol/L (3.5-5.1); Sodium 137 mmol/L (135-145); eGFR 45.63
[2023-11-14] MEDS: PT'S OWN INSULIN PUMP - NovoLOG 1.5 UNIT SC (15:36)
[2023-11-14 18:05] LABS: Glucose - Point of Care 291 mg/dl (70-99)
[2023-11-14] MEDS: ZETIA 10 MG PO (18:06)
[2023-11-14] MEDS: PT'S OWN INSULIN PUMP - NovoLOG 7.5 UNIT SC (18:06)
[2023-11-14] MEDS: LIPITOR 40 MG PO (18:06)
[2023-11-14] MEDS: NSS 500 IV (18:08)
[2023-11-14 22:23] LABS: Glucose - Point of Care 328 mg/dl (70-99)
--- NOTE | 2023-11-14 22:25 | PTCARENOTE ---
Accu check was 328: Patients own insulin pump reading 251. Bernardo NEWTON aware. New orders received: will obtain BMP to check glucose and lytes/K large diuresis from bumex gtt.
[2023-11-14] MEDS: NEURONTIN 900 MG PO (22:26)
[2023-11-14 23:08] LABS: Blood Urea Nitrogen 34 mg/dl (7-17); Calcium 8.2 mg/dl (8.4-10.2); Carbon Dioxide 29 mmol/L (22-30); Chloride 99 mmol/L (98-107); Estimated Creatinine Clearance 49 ml/min; Glucose 249 mg/dl (70-99); Magnesium 2.1 mg/dl (1.6-2.3); Potassium 3.5 mmol/L (3.5-5.1); Sodium 137 mmol/L (135-145); eGFR 50.23
[2023-11-14] MEDS: PT'S OWN INSULIN PUMP - NovoLOG 1.6 UNIT SC (23:15)
[2023-11-14] MEDS: KCL 40 MEQ PO (23:18)
[2023-11-15] VITALS (20 sets, daily range): BP systolic 98–140; BP diastolic 35–98; PULSE 71; O2SAT 99–100; BMI 39.4
[2023-11-15] MEDS: ROXICODONE 5 MG PO ×2 (03:51→23:06)
--- NOTE | 2023-11-15 04:00 | PTCARENOTE ---
No acute changes. Vitals stable.
[2023-11-15 05:15] LABS: Hematocrit 24.8 % (37.0-47.0); Hemoglobin 8.6 g/dL (12.0-16.0); Mean Corp Hgb Conc. 34.7 g/dL (33.0-37.0); Mean Corpuscular Hgb 29.8 pg (27.0-31.0); Mean Corpuscular Volume 85.8 fL (81.0-99.0); Mean Platelet Volume 12.3 fL (7.4-10.4); Platelet Count 94 10^3/uL (130-400); Red Blood Cell Count 2.89 10^6/uL (4.20-5.40); Red Cell Dist. Width 14.3 % (11.5-14.5); White Blood Cell Count 6.5 10^3/uL (4.8-10.8)
[2023-11-15 05:28] LABS: Blood Urea Nitrogen 32 mg/dl (7-17); Calcium 8.4 mg/dl (8.4-10.2); Carbon Dioxide 32 mmol/L (22-30); Chloride 101 mmol/L (98-107); Estimated Creatinine Clearance 54 ml/min; Glucose 84 mg/dl (70-99); Magnesium 2.2 mg/dl (1.6-2.3); Potassium 3.9 mmol/L (3.5-5.1); Sodium 139 mmol/L (135-145); eGFR 55.76
--- NOTE | 2023-11-15 05:57 | W.PN.CT ---
Today's Communication / Plan
-
-pod #3
-no issues overnight
-got 1 pRBC on 11/13 for Hg 7.1, followed by aggressive diuresis with 60 iv Lasix and Bumex drip. UO 2100/3425 in 12/24 hrs. H/h today 8.6/24.8
-Cr improved - 1.1 today (1.2 on 11/13, peak 1.3 on 11/12, 0.7 preop). Bicarb is elevated at 32
-CT output 60/70 in 12/24 hrs
-follow K with diuresis
-current meds (ASA, Plavix, Lipitor, Zetia, Lopressor 12.5 bid, Amio 200 tid, Protonix). Preop was on Sotalol 40 bid
-encourage IS, OOB
Assessment / Plan
-
Assessment:
- Standard sternotomy with aortic and right atrial cannulation/CABG x 3 (In situ BRUMFIELD to distal LAD, Ao to RSVG to proximal diagonal, Ao to RSVG to distal RCA)/Endoscopic harvest of bilateral lower extremities ultimately using the left lower
extremity vein/Surgical aortic valve replacement (21 mm bioprosthesis)/Modified posterior wall isolation, left atrial maze using RF ablation/Left atrial appendage exclusion (35 mm clip)/Debridement of significant calcifications around the ostium of
the left and right coronary, by Dr. Mccoy 11/12/23, pod#3
-Multivessel coronary artery disease status post multiple PCI and stenting with in-stent restenosis for previous myocardial infarction
-Moderate aortic valve stenosis with severe mitral annular calcification and calcified root
-LVEF 60-65 preop, 70-75% postop per intraop JESUS
-Hx [place]/CAD S/P PCI with DENISSE to LAD in August 2023
-USA
-T2DM since age of 18, on insulin pump with hgb A1C of 7.2
-Diabetic neuropathy
-PAF S/P ablation, 2020
-PSVT S/P ablation, 2020
-Loop recorder on CXR
-HTN
-HLD
-Class 2 obesity (BMI 37.6)
-ADELAIDA (not on CPAP/BIPAP)
-Preop E.Coli UTI (treated with Augmentin)
-S/P b/l cataracts
-S/p Repair of retinal detachment, 2020
-S/P b/l carpal tunnel
-S/p Cholecystectomy
-S/P Appendectomy
-S/P Left TKA
-S/p Release of trigger finger
-S/P Rad-en-Y gastric bypass surgery noted on CT
-Acute postop blood loss/Anemia (received 2u PRBC's intraop and 1u PRBC postop)
-Acute postop thrombocytopenia (transfused 1 {5pk} plts)
-Acute postop atelectasis
-Acute postop hypovolemia with subsequent hypervolemia
-ADAM
Discussed patient care with: Nursing and Care Team
Subjective
Procedure
- Standard sternotomy with aortic and right atrial cannulation/CABG x 3 (In situ BRUMFIELD to distal LAD, Ao to RSVG to proximal diagonal, Ao to RSVG to distal RCA)/Endoscopic harvest of bilateral lower extremities ultimately using the left lower
extremity vein/Surgical aortic valve replacement (21 mm bioprosthesis)/Modified posterior wall isolation, left atrial maze using RF ablation/Left atrial appendage exclusion (35 mm clip)/Debridement of significant calcifications around the ostium of
the left and right coronary, by Dr. Mccoy 11/12/23
-
Date of Service: November 15, 2023
Objective Data
-
Lab Results
11/15/23 04:57
11/15/23 04:57
PT 18.5 Sec (11.4-14.6) H 11/12/23 19:01
INR 1.56 11/12/23 19:01
APTT 37.2 Sec (23.4-35.0) H 11/12/23 19:01
Vital Signs
Vital Signs
Temp Pulse Resp BP Pulse Ox
98 F 74 18 122/57 93
11/15/23 04:54 11/15/23 05:00 11/15/23 04:54 11/15/23 04:54 11/15/23 05:00
CT Intake/Output/Weight
11/14/23 11/14/23 11/15/23
06:59 18:59 06:59
Intake Total 229.9 / 868.7 699.1 / 1061.1 362 / 1061.1
Output Total 890 / 1245 1345 / 3505 2160 / 3505
Balance -660.1 / -376.3 -645.9 / -2443.9 -1798 / -2443.9
SaO2: 93
Physical Exam
-
General: Awake and AOx3
Cardiovascular: Regular rate & rhythm, No Murmurs and No Rub
Respiratory: Decreased Breath Sounds
Sternum: Stable
Incision: Clean, Dry and Dressing Intact
Extremities: Edema +1 (2+ DPs b/l)
Abdomen: soft, nontender, nondistended, + bowel sounds
Data Reviewed
-
Lab Results: Results Reviewed
Medications: Active Meds Reviewed
Chest X-Ray: Report Reviewed and Image Reviewed
ECG: Report Reviewed and Image Reviewed
[2023-11-15] MEDS: TYLENOL 1000 MG PO ×3 (06:08→21:33)
--- NOTE | 2023-11-15 07:13 | W.PN.CD ---
Today's Communication / Plan
-
Continue current course.
Monitor response to bumetanide.
Restart bumetanide gtt if intermittent dose response is inadequate.
Impression / Plan
-
Impression/Plan: 63 y/o female with IDDM1, PAF s/p prior PVI, HLD, untreated ADELAIDA, HFpEF, moderate and CAD s/p recent PCI (August 2023) admitted with unstable angina, now s/p CABG/AVR/MAZE/LAAE.
#CAD/Unstable Angina
-Acute on chronic.
-Prior PCI to LAD.
-S/P 3V CABG (BRUMFIELD to LAD, SVG to D1, SVG to dRCA) with Dr. Mccoy, 11/12/2023.
-Routine post operative management.
-Encourage incentive spirometry, ambulation.
-Aggressive secondary prevention, including high dose, high potency statin.
-Continue post operative amiodarone.
-Continue metoprolol.
#Moderate
-Chronic.
-S/P #21 Alvarez Inspiris Resilia AVR (SN [id number]) with Dr. Mccoy, 11/12/2023.
-Post operative care as above.
#PAF
-Currently in NSR.
-Rhythm control via prior remote PVI, now S/P MAZE with Dr. Mccoy, 11/12/2023.
-Rate control with amiodarone and metoprolol.
-CHADS2-Vasc = 6 (CHF, HTN, Age x1, DM, Vascular Disease, Female).
-Therapeutic anticoagulation on hold.
#HFpEF
-Acute on chronic.
-Consider uptitration of GDMT (including SGLT2i).
-Bumetanide gtt auto-discontinued.
-Give bumetanide 1 mg IV this morning and monitor response.
-If she responds well, continue intermittent dosing. If she does not, restart bumetanide gtt.
#Anemia
-Acute blood loss anemia secondary to surgery.
-S/P 2 units PRBC's and 1 unit of platelets in surgery.
-S/P 1 unit PRBC's on 11/13/2023 @ 01:05.
-S/P 1 additional unit on 11/14/2023.
-Hbg improved to 8.6 (from 7.1).
#Type I DM
-Chronic.
-HbA1c = 7.0%.
-Continue insulin pump.
-Diabetic HORSE DOCTOR consulted.
#Dyslipidemia
-Chronic, stable.
-Resume atorvastatin and ezetimibe postop.
#ADELAIDA
-Chronic, untreated.
-Has not been on CPAP after hers was recalled.
-Outpatient reassessment.
Subjective/Interval History:
Transfused one unit of PRBC's yesterday.
Furosemide transitioned to bumetanide gtt.
Unfortunately the gtt auto-stopped last night.
Regardless, her output was dramatically improved on this medication.
DATA:
Intraoperative JESUS, 11/12/2023:
CONCLUSIONS
Moderate aortic stenosis. Mild aortic regurgitation. Valve annulus 21 mm.
Normal left ventricular size and systolic function, mild LVH, stage I diastolic
function.
No thrombus seen at left atrial appendage.
The aorta has atheroma less than 5 mm and moderate calcifications.
Severe MAC, trace MR.
Moderate left atrial enlargement.
POST OPERATIVE FINDINGS
Status post aortic valve replacement with 21 mm bioprosthetic aortic valve, the
valve is well-seated, no perivalvular leak, leaflets are functioning well. No
intra valvular regurgitation. Gradient could not be obtained because no
transgastric views were possible.
Status post CABG x 3, the left ventricle is vigorously yevgeniy, EF 70 to
75%. No regional wall motion abnormalities seen.
Status post left atrial appendage exclusion, no flow seen through the left
atrial appendage remnant.
Trace MR. Trace TR.
Normal right ventricular function.
Physical Exam
Vital Signs/Labs
Vital Signs
Temp Pulse Resp BP Pulse Ox
36.6 C 73 18 122/57 93
11/15/23 04:54 11/15/23 06:00 11/15/23 04:54 11/15/23 04:54 11/15/23 06:03
11/13/23 11/14/23 11/15/23
11:59 11:59 11:59
Actual Weight 95.9 kg 95.9 kg 94.6 kg
11/15/23 04:57
11/15/23 04:57
PT 18.5 Sec (11.4-14.6) H 11/12/23 19:01
INR 1.56 11/12/23 19:01
APTT 37.2 Sec (23.4-35.0) H 11/12/23 19:01
Magnesium 2.2 mg/dl (1.6-2.3) 11/15/23 04:57
Triglycerides 58 mg/dl (10-149) 11/08/23 05:29
LDL Cholesterol, Calc 35 mg/dl 11/08/23 05:29
VLDL Cholesterol, Calc 11 mg/dl (0-30) 11/08/23 05:29
HDL Cholesterol 38 mg/dl 11/08/23 05:29
Physical Exam
Constitutional: No acute distress and Comfortable
EENT: Anicteric and Moist mucous membranes
Cardiovascular: Rhythm & rate is regular, Pedal edema present, S1S2 is normal and Murmur/rub/gallop absent
Respiratory: Respiratory effort normal, Lungs clear to auscul., Wheeze Absent, Crackles Absent and Rhonchi Absent
GI: Soft, Distention absent, Flat, Non tender and Normal bowel sounds
Neuro/Psych: AO x 3
Data Reviewed
-
Date of Service: November 15, 2023
Medical Decision Making: Reviewed Test Results, Independent Historian Assessment and Test Interpretation
EKG: Tracing Personally Visualized and interpreted and Report Reviewed by me
Echo: Report Reviewed by me
X-Ray/CT/US/MRI/NUC/PET: Image Personally Visualized and interpreted and Report Reviewed by me
Labs: Labs Reviewed by me
[2023-11-15 07:54] LABS: Glucose - Point of Care 78 mg/dl (70-99)
--- NOTE | 2023-11-15 07:55 | PN.DE.MGMTRT ---
Insulin Management
- -
11/15/2023: Diabetes Management Follow up:
Patient transferred from [facility] with hx of [place]/CAD S/P PCI stent to LAD in August 2023. Pt was in Cardiac rehab @ [facility] on Sunday11/02/23 when she developed 10/10 substernal chest pain with radiation to the neck/jaw--> Cardiac cath--> extensive LAD
disease--> refereed to for CABG.
PMH: HTN, CAD/[place] s/p PCI with DENISSE to LAD, PAF S/P ablation, 2020, PSVT S/P ablation 2020, HLD, IDDMx 45 years and using the insulin pump x35 yrs, Diabetic neuropathy and Class 2 obesity (BMI 37.6). Routinely sees Endo @ [facility] Dr. Thomas
Currently using Medtronic 780 G Insulin pump with Guardian Sensor and NovoLog insulin and [place] advanced infusion set.
Patient awake alert out of bed in chair. Able to discuss diabetes management plan.
POD 3 s/p CABG x 3 doing well, cr 1.1, eGFR 55.76.
Transitioned from glycemic protocol after lunch 11/13 to insulin pump. At the time of transition patients glucose had trended down to 47, she was treated and glucose 133. Pre dinner and HS elevated, corrected using insulin pump. Fasting glucose
11/14 84. Patient is doing well, will make no change to insulin pump.
Diabetes History
- -
Type of Diabetes: 1
Pre-Admission Diabetes Regimen
11/14/23 11/14/23 11/14/23
14:48 22:29 22:29
Creatinine 1.3 H 1.2 H Cancelled
11/15/23
04:57
Creatinine 1.1 H
Lab Results
Hemoglobin A1c 7.0 % (4.0-5.6) H 11/07/23 05:47
Insulin Pump Settings
IP Diabetes Regimen
11/14/23 11/14/23 11/14/23
08:08 10:39 12:37
Glucose
POC Glucose 132 H 128 H 47 L*
11/14/23 11/14/23 11/14/23
12:54 14:48 18:04
Glucose 181 H
POC Glucose 133 H 291 H
11/14/23 11/14/23 11/14/23
22:18 22:29 22:29
Glucose 249 H Cancelled
POC Glucose 328 H
11/15/23 11/15/23
04:57 07:52
Glucose 84
POC Glucose 78
Meal type: Breakfast
Patient Education
[2023-11-15] MEDS: FEOSOL 325 MG PO (08:05)
[2023-11-15] MEDS: SENOKOT-S 1 TABLET PO ×2 (08:05→21:26)
[2023-11-15] MEDS: MAGNESIUM OXIDE 500 MG PO ×2 (08:05→21:26)
[2023-11-15] MEDS: PACERONE 200 MG PO ×2 (08:05→17:40)
[2023-11-15] MEDS: LOPRESSOR 12.5 MG PO (08:05)
[2023-11-15] MEDS: VITAMIN C 500 MG PO (08:05)
[2023-11-15] MEDS: VITAMIN D3 (cholecalciferol) 50 MCG PO (08:05)
[2023-11-15] MEDS: PROTONIX 40 MG PO (08:05)
[2023-11-15] MEDS: PT'S OWN INSULIN PUMP - NovoLOG 0.1 UNIT SC (08:06)
[2023-11-15] MEDS: LOW STRENGTH ASPIRIN 81 MG PO (08:06)
[2023-11-15] MEDS: PLAVIX 75 MG PO (08:06)
[2023-11-15] MEDS: DIAMOX 250 MG PO (08:06)
[2023-11-15] MEDS: BACTROBAN 2% OINTMENT 1 APPLIC NASAL ×2 (08:06→21:33)
[2023-11-15] MEDS: LIDOCAINE 4% PATCH TOPICAL (08:17)
--- NOTE | 2023-11-15 08:30 | PTCARENOTE ---
Patient received from mathematics academic chair RN. SIMRAN in chair, no reports of pain, mediastinal CT x2 intact draining serosanguineous fluid. Patient AOx4 with a flat affect. NSR on telemetry, HR in 70's, palpable pulses. Patient on 2LNC, satting 93-94% with an
occasional productive cough. Forman catheter in place, draining clear, yellow, urine. RIJ Cordis in place with KVO, patient assist x1-2 for mobility. Ate her breakfast in full, tolerated well. Patient's sister at bedside, updated her and the patient
about POC for the day. No questions indicated. Assessment of needs ongoing.
[2023-11-15] MEDS: BUMEX 1 MG IV (09:17)
--- NOTE | 2023-11-15 10:03 | W.PN.UPDATE ---
Update Note
Progress Note Update
NO pacing required. Site cleansed with CHG. Suture removed and bipolar v-lead removed without difficulty. Bedrest x 1 hour and VS q15min x 4
[2023-11-15 11:48] LABS: Glucose - Point of Care 145 mg/dl (70-99)
[2023-11-15] MEDS: PT'S OWN INSULIN PUMP - NovoLOG 0.2 UNIT SC (11:49)
--- NOTE | 2023-11-15 12:04 | PTCARENOTE ---
VS obtained, assessment stable. Patient assisted back oob after procedures. Worked w/CR, ambulated tanner. Lunch ordered.
[2023-11-15] MEDS: FERRLECIT 110 MG IV (14:06)
--- NOTE | 2023-11-15 14:53 | PTCARENOTE ---
assumed care of pt from previous shift RN, sinus rhythm maintained, VSS. +bm and +voided yellow. Post op sites are intact. Insulin pump maintained. Plan of care reviewed w the pt and questions encouraged
[2023-11-15] MEDS: LIPITOR 40 MG PO (17:40)
[2023-11-15] MEDS: ZETIA 10 MG PO (17:40)
[2023-11-15] MEDS: NSS IV (17:40)
[2023-11-15 17:45] LABS: Glucose - Point of Care 110 mg/dl (70-99)
[2023-11-15] MEDS: PT'S OWN INSULIN PUMP - NovoLOG 3 UNIT SC (17:50)
--- NOTE | 2023-11-15 20:00 | PTCARENOTE ---
received pt from day shift nurse. pt OOB in chair during assessment. Pt is AAOx3, NSR per tele,palpable peripheral pulses, +1 edema LLE, pox 94% on RA, lungs diminished at bases, bowel sounds hypoactive, abd round, obese. pt voiding dark amara
urine, post op surgical sites stable, bed locked, call hodges within reach
--- NOTE | 2023-11-15 20:00 | PTCARENOTE ---
received pt from down filler nurse. pt OOB in chair during assessment. Pt is AAOx3, NSR per tele,palpable peripheral pulses, +1 edema LLE, pox 94% on RA, lungs diminished at bases, bowel sounds hypoactive, abd round, obese. pt voiding dark amara
urine, post op surgical sites stable, bed locked, call hodges within reach
[2023-11-15] MEDS: BETAPACE 40 MG PO (21:26)
[2023-11-15] MEDS: NEURONTIN 900 MG PO (21:34)
[2023-11-15] MEDS: PT'S OWN INSULIN PUMP - NovoLOG 0.3 UNIT SC (21:39)
[2023-11-15 21:42] LABS: Glucose - Point of Care 158 mg/dl (70-99)
[2023-11-16] VITALS (9 sets, daily range): BP systolic 108–128; BP diastolic 40–63; PULSE 67; O2SAT 94–97; BMI 39.3
--- NOTE | 2023-11-16 | PTCARENOTE ---
pain management see MAR, VSS, assessment remains unchanged
--- NOTE | 2023-11-16 03:54 | PTCARENOTE ---
pt lying comfortably in bed, VSS, assessment remains unchanged
[2023-11-16 04:16] LABS: Hematocrit 26.3 % (37.0-47.0); Hemoglobin 9.1 g/dL (12.0-16.0); Mean Corp Hgb Conc. 34.6 g/dL (33.0-37.0); Mean Corpuscular Hgb 30.4 pg (27.0-31.0); Mean Platelet Volume 11.7 fL (7.4-10.4); Platelet Count 112 10^3/uL (130-400); Red Blood Cell Count 2.99 10^6/uL (4.20-5.40); Red Cell Dist. Width 14.4 % (11.5-14.5); White Blood Cell Count 7.5 10^3/uL (4.8-10.8)
[2023-11-16 04:32] LABS: Blood Urea Nitrogen 28 mg/dl (7-17); Calcium 8.8 mg/dl (8.4-10.2); Carbon Dioxide 32 mmol/L (22-30); Chloride 102 mmol/L (98-107); Estimated Creatinine Clearance 59 ml/min; Glucose 101 mg/dl (70-99); Magnesium 2.6 mg/dl (1.6-2.3); Potassium 3.6 mmol/L (3.5-5.1); Sodium 141 mmol/L (135-145); eGFR > 60.00
--- NOTE | 2023-11-16 05:11 | W.PN.CT ---
Today's Communication / Plan
-
-pod #4
-no issues overnight
-diuresed with Diamox and iv Bumex- UO 1250/1920 in 03/11 hrs - continue
-Cr improving - 1.0 today (1.1 on 11/14, 1.2 on 11/13, peak 1.3 on 11/12, 0.7 preop). Bicarb is elevated at 32
-hg stable - 9.1 (8.6 on 11/14)
-platelets improving- 112K
-follow CXR
-current meds (ASA, Plavix, Lipitor, Zetia, Lopressor 12.5 bid, Sotalol 40 bid, Protonix).
-encourage IS, OOB
Assessment / Plan
-
Assessment:
- Standard sternotomy with aortic and right atrial cannulation/CABG x 3 (In situ BRUMFIELD to distal LAD, Ao to RSVG to proximal diagonal, Ao to RSVG to distal RCA)/Endoscopic harvest of bilateral lower extremities ultimately using the left lower
extremity vein/Surgical aortic valve replacement (21 mm bioprosthesis)/Modified posterior wall isolation, left atrial maze using RF ablation/Left atrial appendage exclusion (35 mm clip)/Debridement of significant calcifications around the ostium of
the left and right coronary, by Dr. Mccoy 11/12/23, pod#4
-Multivessel coronary artery disease status post multiple PCI and stenting with in-stent restenosis for previous myocardial infarction
-Moderate aortic valve stenosis with severe mitral annular calcification and calcified root
-LVEF 60-65 preop, 70-75% postop per intraop JESUS
-Hx [place]/CAD S/P PCI with DENISSE to LAD in August 2023
-[place]
-T2DM since age of 18, on insulin pump with hgb A1C of 7.2
-Diabetic neuropathy
-PAF S/P ablation, 2020
-PSVT S/P ablation, 2020
-Loop recorder on CXR
-HTN
-HLD
-Class 2 obesity (BMI 37.6)
-ADELAIDA (not on CPAP/BIPAP)
-Preop E.Coli UTI (treated with Augmentin)
-S/P b/l cataracts
-S/p Repair of retinal detachment, 2020
-S/P b/l carpal tunnel
-S/p Cholecystectomy
-S/P Appendectomy
-S/P Left TKA
-S/p Release of trigger finger
-S/P Rad-en-Y gastric bypass surgery noted on CT
-Acute postop blood loss/Anemia (received 2u PRBC's intraop and 1u PRBC postop)
-Acute postop thrombocytopenia (transfused 1 {5pk} plts)
-Acute postop atelectasis
-Acute postop hypovolemia with subsequent hypervolemia
-ADAM
Discussed patient care with: Nursing and Care Team
Subjective
Procedure
- Standard sternotomy with aortic and right atrial cannulation/CABG x 3 (In situ BRUMFIELD to distal LAD, Ao to RSVG to proximal diagonal, Ao to RSVG to distal RCA)/Endoscopic harvest of bilateral lower extremities ultimately using the left lower
extremity vein/Surgical aortic valve replacement (21 mm bioprosthesis)/Modified posterior wall isolation, left atrial maze using RF ablation/Left atrial appendage exclusion (35 mm clip)/Debridement of significant calcifications around the ostium of
the left and right coronary, by Dr. Mccoy 11/12/23
-
Date of Service: November 16, 2023
Objective Data
-
PT 18.5 Sec (11.4-14.6) H 11/12/23 19:01
INR 1.56 11/12/23 19:01
APTT 37.2 Sec (23.4-35.0) H 11/12/23 19:01
Vital Signs
Vital Signs
Temp Pulse Resp BP Pulse Ox
97.7 F 61 14 112/59 98
11/16/23 00:30 11/16/23 02:00 11/16/23 00:30 11/16/23 00:22 11/16/23 00:30
CT Intake/Output/Weight
11/15/23 11/15/23 11/16/23
06:59 18:59 06:59
Intake Total 422 / 1121.1 300 / 300
Output Total 2210 / 3555 675 / 1325 650 / 1325
Balance -1788 / -2433.9 -375 / -1025 -650 / -1025
SaO2: 98
Physical Exam
-
General: Awake and AOx3
Cardiovascular: Regular rate & rhythm, No Murmurs and No Rub
Respiratory: Decreased Breath Sounds
Sternum: Stable
Incision: Clean, Dry and Dressing Intact
Abdomen: soft, nontender, nondistended, + bowel sounds
Extremities: Edema +1 (2+ DPs b/l)
Data Reviewed
-
Lab Results: Results Reviewed
Medications: Active Meds Reviewed
Chest X-Ray: Report Reviewed and Image Reviewed
ECG: Report Reviewed and Image Reviewed
[2023-11-16] MEDS: TYLENOL 1000 MG PO ×2 (05:36→16:58)
[2023-11-16] MEDS: KCL 40 MEQ PO (05:38)
[2023-11-16 06:17] LABS: Glucose - Point of Care 125 mg/dl (70-99)
--- NOTE | 2023-11-16 07:40 | PN.DE.MGMTRT ---
Insulin Management
- -
11/16/2023: Diabetes Management F/U:
Patient transferred from [facility] with hx of [place]/CAD S/P PCI stent to LAD in August 2023. Pt was in Cardiac rehab @ [facility] on Sunday11/02/23 when she developed 10/10 substernal chest pain with radiation to the neck/jaw--> Cardiac cath--> extensive LAD
disease--> refereed to for CABG.
PMH: HTN, CAD/[place] s/p PCI with DENISSE to LAD, PAF S/P ablation, 2020, PSVT S/P ablation 2020, HLD, IDDMx 45 years and using the insulin pump x35 yrs, Diabetic neuropathy and Class 2 obesity (BMI 37.6). Routinely sees Endo @ [facility] Dr. Thomas
Currently using Medtronic 780 G Insulin pump with Guardian Sensor and NovoLog insulin and [place] advanced infusion set.
Patient awake A/O sitting up in chair, pleasant, offers no c/o, states she is feeling better, able to discuss diabetes mgt plan.
POD #4 s/p CABG x 3 doing well, Cr 1.0, eGFR> 60
11/13 Transitioned from glycemic protocol to insulin pump.
Glucose stable and in range of premeal 78 to 145, fasting 101 this AM
Will make no adjustments to current pump settings.
Diabetes History
- -
Type of Diabetes: 2 requiring insulin
Pre-Admission Diabetes Regimen
11/16/23
03:46
Creatinine 1.0
Lab Results
Hemoglobin A1c 7.0 % (4.0-5.6) H 11/07/23 05:47
Insulin Pump Settings
IP Diabetes Regimen
11/15/23 11/15/23 11/15/23
07:52 11:47 17:43
Glucose
POC Glucose 78 145 H 110 H
11/15/23 11/16/23 11/16/23
21:40 03:46 06:16
Glucose 101 H
POC Glucose 158 H 125 H
Meal type: Dinner
Meal type: Breakfast
Amount consumed: 100%
Amount consumed: 90%
Patient Education
[2023-11-16] MEDS: FEOSOL 325 MG PO (07:58)
[2023-11-16] MEDS: PLAVIX 75 MG PO (07:58)
[2023-11-16] MEDS: LOW STRENGTH ASPIRIN 81 MG PO (07:58)
[2023-11-16] MEDS: SENOKOT-S 1 TABLET PO ×2 (07:58→21:03)
[2023-11-16] MEDS: MAGNESIUM OXIDE 500 MG PO ×2 (07:58→21:03)
[2023-11-16] MEDS: VITAMIN C 500 MG PO (07:58)
[2023-11-16] MEDS: PROTONIX 40 MG PO (07:58)
[2023-11-16] MEDS: VITAMIN D3 (cholecalciferol) 50 MCG PO (07:58)
[2023-11-16] MEDS: PT'S OWN INSULIN PUMP - NovoLOG 4 UNIT SC ×2 (07:59→18:11)
[2023-11-16] MEDS: DIAMOX 250 MG PO (08:00)
[2023-11-16] MEDS: BETAPACE 40 MG PO ×2 (08:00→21:03)
--- NOTE | 2023-11-16 08:00 | PTCARENOTE ---
Received patient for 7a-7p shift. Pt AAOx3, without complaints. VSS, NSR on power brake operator. CTPA and Dr. Mccoy in to see patient. Medications administered as ordered. Pt denies pain at this time. Will continue to monitor.
[2023-11-16] MEDS: LIDOCAINE 4% PATCH TOPICAL (08:02)
[2023-11-16] MEDS: BACTROBAN 2% OINTMENT 1 APPLIC NASAL (08:03)
--- NOTE | 2023-11-16 08:14 | W.PN.CD ---
Today's Communication / Plan
-
Bumetanide 1 mg IV BID.
Start dapagliflozin 10 mg daily. Case management consult.
D/C amiodarone.
Restart metoprolol.
Probably ok to restart anticoagulation given improvement in H/H (rivaroxaban 15 mg daily).
Impression / Plan
-
Impression/Plan: 63 y/o female with IDDM1, PAF s/p prior PVI, HLD, untreated ADELAIDA, HFpEF, moderate and CAD s/p recent PCI (August 2023) admitted with unstable angina, now s/p CABG/AVR/MAZE/LAAE.
#CAD/Unstable Angina
-Acute on chronic.
-Prior PCI to LAD (as recently as August)
-S/P 3V CABG (BRUMFIELD to LAD, SVG to D1, SVG to dRCA) with Dr. Mccoy, 11/12/2023.
-Routine post operative management.
-Encourage incentive spirometry, ambulation.
-Continue atorvastatin, metoprolol and amiodarone.
-Chest tube/pain management per CT surgery.
-Antithrombotic therapy with clopidogrel and rivaroxaban 15 mg daily.
#Moderate
-Chronic.
-S/P #21 Alvarez Inspiris Resilia AVR (SN [id number]) with Dr. Mccoy, 11/12/2023.
-Post operative care as above.
#PAF
-Currently in NSR.
-Rhythm control via prior remote PVI, now S/P MAZE with Dr. Mccoy, 11/12/2023.
-Rate control with sotalol, amiodarone and metoprolol.
-CHADS2-Vasc = 6 (CHF, HTN, Age x1, DM, Vascular Disease, Female).
-Therapeutic anticoagulation at the discretion of CT surgery. Rivaroxaban 15 mg daily.
-Discontinue amiodarone in light of reinitiation of sotalol (both are class III antiarrhythmics).
#HFpEF
-Acute on chronic.
-Start bumetanide 1 mg IV BID.
-Start dapagliflozin 10 mg daily.
-Case management consult.
#Anemia
-Acute blood loss anemia secondary to surgery.
-S/P 2 units PRBC's and 1 unit of platelets in surgery.
-S/P 1 unit PRBC's on 11/13/2023 @ 01:05.
-S/P 1 additional unit on 11/14/2023.
-Hbg improved to 9.1.
#Type I DM
-Chronic.
-HbA1c = 7.0%.
-Continue insulin pump.
-Diabetic TANK COOPER consulted.
#Dyslipidemia
-Chronic, stable.
-Resume atorvastatin and ezetimibe postop.
#ADELAIDA
-Chronic, untreated.
-Has not been on CPAP after hers was recalled.
-Outpatient reassessment.
Subjective/Interval History:
Weight down 0.3 kg.
Remains 91% on 2LNC.
Hbg improved to 9.1.
DATA:
Intraoperative JEUSS, 11/12/2023:
CONCLUSIONS
Moderate aortic stenosis. Mild aortic regurgitation. Valve annulus 21 mm.
Normal left ventricular size and systolic function, mild LVH, stage I diastolic
function.
No thrombus seen at left atrial appendage.
The aorta has atheroma less than 5 mm and moderate calcifications.
Severe MAC, trace MR.
Moderate left atrial enlargement.
POST OPERATIVE FINDINGS
Status post aortic valve replacement with 21 mm bioprosthetic aortic valve, the
valve is well-seated, no perivalvular leak, leaflets are functioning well. No
intra valvular regurgitation. Gradient could not be obtained because no
transgastric views were possible.
Status post CABG x 3, the left ventricle is vigorously yevgeniy, EF 70 to
75%. No regional wall motion abnormalities seen.
Status post left atrial appendage exclusion, no flow seen through the left
atrial appendage remnant.
Trace MR. Trace TR.
Normal right ventricular function.
Physical Exam
Vital Signs/Labs
Vital Signs
Temp Pulse Resp BP Pulse Ox
37.2 C 65 18 110/53 94
11/16/23 07:43 11/16/23 08:00 11/16/23 07:43 11/16/23 08:00 11/16/23 07:43
11/14/23 11/15/23 11/16/23
11:59 11:59 11:59
Actual Weight 95.9 kg 94.6 kg 94.3 kg
11/16/23 03:46
11/16/23 03:46
PT 18.5 Sec (11.4-14.6) H 11/12/23 19:01
INR 1.56 11/12/23 19:01
APTT 37.2 Sec (23.4-35.0) H 11/12/23 19:01
Magnesium 2.6 mg/dl (1.6-2.3) H 11/16/23 03:46
Triglycerides 58 mg/dl (10-149) 11/08/23 05:29
LDL Cholesterol, Calc 35 mg/dl 11/08/23 05:29
VLDL Cholesterol, Calc 11 mg/dl (0-30) 11/08/23 05:29
HDL Cholesterol 38 mg/dl 11/08/23 05:29
Physical Exam
Constitutional: No acute distress and Comfortable
EENT: Anicteric and Moist mucous membranes
Cardiovascular: Rhythm & rate is regular, JVD pressure is normal, Pedal edema present, S1S2 is normal and Murmur/rub/gallop absent
Respiratory: Respiratory effort normal, Lungs clear to auscul., Wheeze Absent, Crackles Absent and Rhonchi Absent
GI: Soft, Distention absent, Flat, Non tender and Normal bowel sounds
Neuro/Psych: AO x 3
Data Reviewed
-
Date of Service: November 16, 2023
Medical Decision Making: Reviewed Test Results, Independent Historian Assessment, Test Interpretation and Review of Case with other Provider
EKG: Tracing Personally Visualized and interpreted and Report Reviewed by me
Echo: Tracing Personally Visualized and interpreted and Report Reviewed by me
X-Ray/CT/US/MRI/NUC/PET: Image Personally Visualized and interpreted and Report Reviewed by me
Medical Tests (PFT, Pathology etc): Report Reviewed by me
Labs: Labs Reviewed by me
[2023-11-16] MEDS: BUMEX 1 MG IV ×2 (09:56→16:58)
--- NOTE | 2023-11-16 10:00 | PTCARENOTE ---
Patient refusing Farxiga. Purpose and importance reinforced to patient. CTPA Shani aware and to talk to patient. Will continue to monitor.
--- NOTE | 2023-11-16 10:22 | W.PN.UPDATE ---
Update Note
Progress Note Update
Patient is hesitant to start farxiga today without discussion with her primary housekeeping room attendant & scout sniper. I will stop for now, but patient amenable to receiving pricing from .
--- NOTE | 2023-11-16 11:26 | CM ---
Priced Farxiga thru insurance, [facility] [phone]. Estimated cost of Farxiga is 4.77/30 d supply or 4.77 for 90 d supply. '
Met w/ patient at bedside to discuss above and DC planning.
Sister present at bedside.
Pt. anticipates DC to home over w/e. Pt. resides w/ spouse and he can assist as needed.
We reviewed DC plan for home w/ CT Transitional Care RN.
Discussed cost if [place]. Pt. does not wish to start this medication until she speaks w/ her Cards + Kari GREY.
Will cont. to be available for any needs that may arise.
[2023-11-16] MEDS: TYLENOL 650 MG PO (11:42)
[2023-11-16] MEDS: LIDOCAINE 4% PATCH 1 PATCH TOPICAL (11:48)
[2023-11-16 11:55] LABS: Glucose - Point of Care 137 mg/dl (70-99)
[2023-11-16] MEDS: PT'S OWN INSULIN PUMP - NovoLOG 3.8 UNIT SC (15:02)
[2023-11-16 17:04] LABS: Glucose - Point of Care 127 mg/dl (70-99)
[2023-11-16] MEDS: LIPITOR 40 MG PO (18:12)
[2023-11-16] MEDS: ZETIA 10 MG PO (18:12)
[2023-11-16] MEDS: NSS IV (18:13)
--- NOTE | 2023-11-16 21:00 | PTCARENOTE ---
Report received from PABLO Can. Pt awake, alert, sitting in recliner chair. Oriented x 4. Speech clear. Pt on room air. Sat 94%. BBS present. Decreased to B bases. Pt in SR. Audible heart tones. BP normotensive. See flowsheet. Palpable, +2 B radial
and DP pulses, bilaterally. PT pulses +1, bilaterally. For wound assessments, see flowsheets. Surgical bra intact. Belly soft, nontender. Normoactive bowel sounds x 4. No BM yet. Pt reports passing flatus. Voids clear, yellow urine in toilet. CHG
cloth bath given. Clean linens applied to bed. Pt assisted to bed with 2 RNs. Pt changed glucose sensor. Ongoing plan of care.
[2023-11-17] VITALS (13 sets, daily range): BP systolic 88–137; BP diastolic 49–70; PULSE 65; O2SAT 95–100; BMI 39.2
[2023-11-17] LABS: Glucose - Point of Care 116 mg/dl (70-99)
[2023-11-17] MEDS: PT'S OWN INSULIN PUMP - NovoLOG SC (00:02)
[2023-11-17] MEDS: TYLENOL 1000 MG PO ×4 (00:03→21:16)
[2023-11-17] MEDS: NEURONTIN 900 MG PO ×2 (00:04→21:15)
--- NOTE | 2023-11-17 00:09 | PTCARENOTE ---
Evening glucose done 2 hours after pt changed sensor to L upper arm with 2 hours of allowing sensor to refill with blood. Accucheck with hospital machine is 116. Her glucometer read 115.
She c/o 5/10 sternal pain. Tylenol 1 GM given as scheduled along with scheduled gabapentin. VS done. See flowsheet.
--- NOTE | 2023-11-17 04:00 | PTCARENOTE ---
VS done. Labs drawn and sent after multiple sticks. Dressing changed to old CT sites. New Surgibra placed onto pt. Pt helped up to chair.
--- NOTE | 2023-11-17 05:25 | W.PN.CT ---
Today's Communication / Plan
-
Plan:
-No major issues overnight. Hemodynamically and neurologically intact
-Will resume Xarelto today, f/u CBC (pending, difficult stick for blood)
-Refusing Farxiga until she speaks to primary Set Off Blocker
-Using own insulin pump. Diabetes management following
-Diuresing with Bumex 1 mg IV BID, 24hrs u/o 2450 mL
-Cont. current meds (ASA, Plavix, Lipitor, Zetia, Lopressor 12.5 bid, Sotalol 40 bid, Protonix; resume Xarelto)
-F/u 2-view cxr
-Encourage use of IS
-OOB into chair/Ambulate
-Home likely tomorrow
Assessment / Plan
-
Assessment:
- Standard sternotomy with aortic and right atrial cannulation/CABG x 3 (In situ BRUMFIELD to distal LAD, Ao to RSVG to proximal diagonal, Ao to RSVG to distal RCA)/Endoscopic harvest of bilateral lower extremities ultimately using the left lower
extremity vein/Surgical aortic valve replacement (21 mm bioprosthesis)/Modified posterior wall isolation, left atrial maze using RF ablation/Left atrial appendage exclusion (35 mm clip)/Debridement of significant calcifications around the ostium of
the left and right coronary, by Dr. Mccoy 11/12/23, pod#5
-Multivessel coronary artery disease status post multiple PCI and stenting with in-stent restenosis for previous myocardial infarction
-Moderate aortic valve stenosis with severe mitral annular calcification and calcified root
-LVEF 60-65 preop, 70-75% postop per intraop JESUS
-Hx SC/CAD S/P PCI with DENISSE to LAD in August 2023
-[place]
-T2DM since age of 18, on insulin pump with hgb A1C of 7.2
-Diabetic neuropathy
-PAF S/P ablation, 2020
-PSVT S/P ablation, 2020
-Loop recorder on CXR
-HTN
-HLD
-Class 2 obesity (BMI 37.6)
-ADELAIDA (not on CPAP/BIPAP)
-Preop E.Coli UTI (treated with Augmentin)
-S/P b/l cataracts
-S/p Repair of retinal detachment, 2020
-S/P b/l carpal tunnel
-S/p Cholecystectomy
-S/P Appendectomy
-S/P Left TKA
-S/p Release of trigger finger
-S/P Rad-en-Y gastric bypass surgery noted on CT
-Acute postop blood loss/Anemia (received 2u PRBC's intraop and 1u PRBC postop)
-Acute postop thrombocytopenia (transfused 1 {5pk} plts)
-Acute postop atelectasis
-Acute postop hypovolemia with subsequent hypervolemia
-ADAM
-Acute postop small right apical pneumothorax
Discussed patient care with: Cardiology, Nursing, Respiratory Therapy, Pharmacy and Care Team
Subjective
Procedure
- Standard sternotomy with aortic and right atrial cannulation/CABG x 3 (In situ BRUMFIELD to distal LAD, Ao to RSVG to proximal diagonal, Ao to RSVG to distal RCA)/Endoscopic harvest of bilateral lower extremities ultimately using the left lower
extremity vein/Surgical aortic valve replacement (21 mm bioprosthesis)/Modified posterior wall isolation, left atrial maze using RF ablation/Left atrial appendage exclusion (35 mm clip)/Debridement of significant calcifications around the ostium of
the left and right coronary, by Dr. Mccoy 11/12/23
-
Date of Service: November 17, 2023
Pt c/o mild incisional pain, otherwise feels well
Objective Data
-
PT 18.5 Sec (11.4-14.6) H 11/12/23 19:01
INR 1.56 11/12/23 19:01
APTT 37.2 Sec (23.4-35.0) H 08/26/24 19:01
Vital Signs
Vital Signs
Temp Pulse Resp BP Pulse Ox
98 F 66 16 127/62 92
11/17/23 04:08 11/17/23 04:08 11/17/23 04:08 11/17/23 04:08 11/17/23 04:08
CT Intake/Output/Weight
11/16/23 11/16/23 11/17/23
06:59 18:59 06:59
Intake Total 480 / 480
Output Total 1250 / 1925 1500 / 2450 950 / 2450
Balance -1250 / -1625 -1020 / -1970 -950 / -1970
SaO2: 92 (RA)
Physical Exam
-
General: Awake, Oriented and AOx3
Cardiovascular: Regular rate & rhythm, No Murmurs, No Rub and No Gallop
Respiratory: Decreased Breath Sounds (at bases, otherwise clear)
Sternum: Stable
Incision: Clean, Dry, Intact and Dressing Intact
Extremities: Other (+trace edema)
Data Reviewed
-
Lab Results: Results Reviewed
Medications: Active Meds Reviewed
Chest X-Ray: Report Reviewed and Image Reviewed
ECG: Report Reviewed and Image Reviewed
[2023-11-17 06:46] LABS: Blood Urea Nitrogen 24 mg/dl (7-17); Calcium 8.7 mg/dl (8.4-10.2); Carbon Dioxide 29 mmol/L (22-30); Chloride 104 mmol/L (98-107); Estimated Creatinine Clearance 65 ml/min; Glucose 113 mg/dl (70-99); Magnesium 2.6 mg/dl (1.6-2.3); Sodium 142 mmol/L (135-145); eGFR > 60.00
[2023-11-17 06:53] LABS: Hematocrit 27.3 % (37.0-47.0); Hemoglobin 9.2 g/dL (12.0-16.0); Mean Corp Hgb Conc. 33.7 g/dL (33.0-37.0); Mean Corpuscular Hgb 31.1 pg (27.0-31.0); Mean Corpuscular Volume 92.2 fL (81.0-99.0); Mean Platelet Volume 11.6 fL (7.4-10.4); Platelet Count 134 10^3/uL (130-400); Red Blood Cell Count 2.96 10^6/uL (4.20-5.40); Red Cell Dist. Width 14.4 % (11.5-14.5); White Blood Cell Count 7.7 10^3/uL (4.8-10.8)
--- NOTE | 2023-11-17 07:00 | PTCARENOTE ---
Bedside walking rounds report received. Patient seen on rounds oob in chair on room air. NSR. Ambulating room and hallway. Vitals stable.
[2023-11-17] MEDS: PT'S OWN INSULIN PUMP - NovoLOG 5 UNIT SC (08:30)
[2023-11-17 08:34] LABS: Glucose - Point of Care 104 mg/dl (70-99)
[2023-11-17] MEDS: FEOSOL 325 MG PO (09:22)
[2023-11-17] MEDS: BUMEX 1 MG IV ×2 (09:22→15:47)
[2023-11-17] MEDS: LIDOCAINE 4% PATCH 1 PATCH TOPICAL (09:22)
[2023-11-17] MEDS: PLAVIX 75 MG PO (09:22)
[2023-11-17] MEDS: BETAPACE 40 MG PO ×2 (09:23→21:16)
[2023-11-17] MEDS: VITAMIN D3 (cholecalciferol) 50 MCG PO (09:23)
[2023-11-17] MEDS: MAGNESIUM OXIDE 500 MG PO (09:23)
[2023-11-17] MEDS: SENOKOT-S 1 TABLET PO ×2 (09:23→21:16)
[2023-11-17] MEDS: PROTONIX 40 MG PO (09:23)
[2023-11-17] MEDS: VITAMIN C 500 MG PO (09:25)
[2023-11-17] MEDS: PT'S OWN INSULIN PUMP - NovoLOG 4 UNIT SC (13:13)
[2023-11-17 13:23] LABS: Glucose - Point of Care 116 mg/dl (70-99)
--- NOTE | 2023-11-17 16:40 | W.PN.CD ---
Today's Communication / Plan
-
Hemodynamically stable. Remains in sinus rhythm. ECG stable. Continue postoperative care as directed by CT surgery
Impression / Plan
-
Impression/Plan: 63 y/o female with IDDM1, PAF s/p prior PVI, HLD, untreated ADELAIDA, HFpEF, moderate and CAD s/p recent PCI (August 2023) admitted with unstable angina, now s/p CABG/AVR/MAZE/LAAE.
#CAD/Unstable Angina
-Acute on chronic.
-Prior PCI to LAD (as recently as August)
-S/P 3V CABG (BRUMFIELD to LAD, SVG to D1, SVG to dRCA) with Dr. Mccoy, 11/12/2023.
-Routine post operative management.
-Antithrombotic therapy with clopidogrel and rivaroxaban 15 mg daily.
#-S/P #21 Alvarez Inspiris Resilia AVR (SN [id number]) with Dr. Mccoy, 11/12/2023.
#PAF
-Currently in NSR.
-Rhythm control via prior remote PVI, now S/P MAZE with Dr. Mccoy, 11/12/2023.
-Rate control metoprolol.
-CHADS2-Vasc = 6 (CHF, HTN, Age x1, DM, Vascular Disease, Female).
-Therapeutic anticoagulation at the discretion of CT surgery. Rivaroxaban 15 mg daily.
-Discontinue amiodarone in light of reinitiation of sotalol (both are class III antiarrhythmics).
#HFpEF
-Acute on chronic.
-Start bumetanide 1 mg IV BID.
-Patient reluctant to start until she follows up eith primary slot operations director and cardiologistdapagliflozin 10 mg daily.
-Case management consult.
#Anemia - monitor
-Acute blood loss anemia secondary to surgery.
-S/P 2 units PRBC's and 1 unit of platelets in surgery.
-S/P 1 unit PRBC's on 11/13/2023 @ 01:05.
-S/P 1 additional unit on 11/14/2023.
#Type I DM
-Chronic.
-HbA1c = 7.0%.
-Continue insulin pump.
-Diabetic RANGE FEEDER consulted.
#Dyslipidemia
-Chronic, stable.
-Resume atorvastatin and ezetimibe postop.
#ADELAIDA
-Chronic, untreated.
-Has not been on CPAP after hers was recalled.
-Outpatient reassessment.
Subjective/Interval History:
Weight down 0.3 kg.
Remains 91% on 2LNC.
Hbg improved to 9.1.
DATA:
Intraoperative JESUS, 11/12/2023:
CONCLUSIONS
Moderate aortic stenosis. Mild aortic regurgitation. Valve annulus 21 mm.
Normal left ventricular size and systolic function, mild LVH, stage I diastolic
function.
No thrombus seen at left atrial appendage.
The aorta has atheroma less than 5 mm and moderate calcifications.
Severe MAC, trace MR.
Moderate left atrial enlargement.
POST OPERATIVE FINDINGS
Status post aortic valve replacement with 21 mm bioprosthetic aortic valve, the
valve is well-seated, no perivalvular leak, leaflets are functioning well. No
intra valvular regurgitation. Gradient could not be obtained because no
transgastric views were possible.
Status post CABG x 3, the left ventricle is vigorously yevgeniy, EF 70 to
75%. No regional wall motion abnormalities seen.
Status post left atrial appendage exclusion, no flow seen through the left
atrial appendage remnant.
Trace MR. Trace TR.
Normal right ventricular function.
Physical Exam
Vital Signs/Labs
Vital Signs
Temp Pulse Resp BP Pulse Ox
98.1 F 66 18 121/60 95
11/17/23 15:45 11/17/23 15:45 11/17/23 15:45 11/17/23 15:45 11/17/23 15:45
11/16/23 11/17/23 11/18/23
06:59 06:59 06:59
Actual Weight 94.3 kg 94 kg
11/17/23 06:07
11/17/23 06:07
PT 18.5 Sec (11.4-14.6) H 11/12/23 19:01
INR 1.56 11/12/23 19:01
APTT 37.2 Sec (23.4-35.0) H 11/12/23 19:01
Magnesium 2.6 mg/dl (1.6-2.3) H 11/17/23 06:07
Triglycerides 58 mg/dl (10-149) 11/08/23 05:29
LDL Cholesterol, Calc 35 mg/dl 11/08/23 05:29
VLDL Cholesterol, Calc 11 mg/dl (0-30) 11/08/23 05:29
HDL Cholesterol 38 mg/dl 11/08/23 05:29
Physical Exam
Constitutional: No acute distress
Cardiovascular: Rhythm & rate is regular
Respiratory: Wheeze Absent and Rhonchi Absent
GI: Soft and Normal bowel sounds
Neuro/Psych: Alert
Data Reviewed
-
Date of Service: November 17, 2023
Medical Decision Making: Reviewed Test Results
X-Ray/CT/US/MRI/NUC/PET: Report Reviewed by me
Medical Tests (PFT, Pathology etc): Report Reviewed by me
Labs: Labs Reviewed by me
[2023-11-17] MEDS: XARELTO 15 MG PO (17:30)
[2023-11-17] MEDS: LIPITOR 40 MG PO (17:30)
[2023-11-17] MEDS: ZETIA 10 MG PO (17:30)
[2023-11-17] MEDS: NSS IV (17:31)
[2023-11-17] MEDS: MILK OF MAGNESIA 30 ML PO (17:31)
[2023-11-17] MEDS: PT'S OWN INSULIN PUMP - NovoLOG 1.1 UNIT SC (18:24)
[2023-11-17 18:26] LABS: Glucose - Point of Care 147 mg/dl (70-99)
--- NOTE | 2023-11-17 20:17 | PTCARENOTE ---
assumed pt from day shift nurse. AAOx3, NSR per tele, palpable pulses, generalized trace edema, pox 95% on RA, B/L lungs diminished at bases, hypoactive bs, +BM, will collect UA next void, post op surgical sites intact, PIV intact, call hodges within
reach, plan of care discussed with pt questions encourage
[2023-11-17 21:17] LABS: Urine Albumin Negative (Neg - Trace); Urine Bilirubin Negative (Negative); Urine Character Slightly Cloudy (Clear); Urine Color Yellow; Urine Glucose Negative (Negative); Urine Ketone Negative (Negative); Urine Leukocyte 2+ (Negative); Urine Nitrite Negative (Negative); Urine Occult Blood Negative (Negative); Urine Urobilinogen Negative (Neg - 1+)
[2023-11-17 21:17] LABS: Glucose - Point of Care 158 mg/dl (70-99)
[2023-11-17] MEDS: PT'S OWN INSULIN PUMP - NovoLOG 0.9 UNIT SC (21:17)
[2023-11-17] MEDS: MAGNESIUM OXIDE PO (21:17)
[2023-11-17 21:32] LABS: Urine Bacteria Many (Negative); Urine Squamous Cell 0-2 /LPF (Few)
[2023-11-17 21:33] LABS: Urine Red Blood Cell 0-2 /HPF (0-2)
--- NOTE | 2023-11-18 00:20 | PTCARENOTE ---
pt tachycardic 130s for 25 beats , asymptomatic CT PA notified
[2023-11-18 04:23] VITALS: BP 128/74
[2023-11-18 05:12] LABS: Blood Urea Nitrogen 25 mg/dl (7-17); Calcium 8.8 mg/dl (8.4-10.2); Carbon Dioxide 32 mmol/L (22-30); Chloride 105 mmol/L (98-107); Estimated Creatinine Clearance 65 ml/min; Glucose 119 mg/dl (70-99); Sodium 143 mmol/L (135-145); eGFR > 60.00
[2023-11-18 05:14] LABS: Hematocrit 28.4 % (37.0-47.0); Hemoglobin 9.7 g/dL (12.0-16.0); Mean Corp Hgb Conc. 34.2 g/dL (33.0-37.0); Mean Corpuscular Hgb 30.6 pg (27.0-31.0); Mean Corpuscular Volume 89.6 fL (81.0-99.0); Mean Platelet Volume 11.2 fL (7.4-10.4); Platelet Count 166 10^3/uL (130-400); Red Blood Cell Count 3.17 10^6/uL (4.20-5.40); Red Cell Dist. Width 16.3 % (11.5-14.5); White Blood Cell Count 8.7 10^3/uL (4.8-10.8)
--- NOTE | 2023-11-18 05:23 | W.PN.CT ---
Today's Communication / Plan
-
Plan:
-No major issues overnight. Hemodynamically and neurologically intact
-Cont. Plavix and Xarelto, ASA d/c'd
-Refusing Farxiga until she speaks to primary Ship Worker
-Using own insulin pump. Diabetes management following
-Diuresing well, will switch from Bumex to Lasix
-Thrombocytopenia has resolved: 94->112->134->166K
-U/A suspicious for uti, f/u culture
-Cont. current meds (Plavix, Lipitor, Zetia, Sotalol 40 bid, Protonix; resumed Xarelto)
-Encourage use of IS
-OOB into chair/Ambulate
-Home today
Assessment / Plan
-
Assessment:
- Standard sternotomy with aortic and right atrial cannulation/CABG x 3 (In situ BRUMFIELD to distal LAD, Ao to RSVG to proximal diagonal, Ao to RSVG to distal RCA)/Endoscopic harvest of bilateral lower extremities ultimately using the left lower
extremity vein/Surgical aortic valve replacement (21 mm bioprosthesis)/Modified posterior wall isolation, left atrial maze using RF ablation/Left atrial appendage exclusion (35 mm clip)/Debridement of significant calcifications around the ostium of
the left and right coronary, by Dr. Mccoy 11/12/23, pod#6
-Multivessel coronary artery disease status post multiple PCI and stenting with in-stent restenosis for previous myocardial infarction
-Moderate aortic valve stenosis with severe mitral annular calcification and calcified root
-LVEF 60-65 preop, 70-75% postop per intraop JESUS
-Hx ID/CAD S/P PCI with DENISSE to LAD in August 2023
-[place]
-T2DM since age of 18, on insulin pump with hgb A1C of 7.2
-Diabetic neuropathy
-PAF S/P ablation, 2020
-PSVT S/P ablation, 2020
-Loop recorder on CXR
-HTN
-HLD
-Class 2 obesity (BMI 37.6)
-ADELAIDA (not on CPAP/BIPAP)
-Preop E.Coli UTI (treated with Augmentin)
-S/P b/l cataracts
-S/p Repair of retinal detachment, 2020
-S/P b/l carpal tunnel
-S/p Cholecystectomy
-S/P Appendectomy
-S/P Left TKA
-S/p Release of trigger finger
-S/P Rad-en-Y gastric bypass surgery noted on CT
-Acute postop blood loss/Anemia (received 2u PRBC's intraop and 1u PRBC postop)
-Acute postop thrombocytopenia (transfused 1 {5pk} plts)
-Acute postop atelectasis/pleural effusion
-Acute postop hypovolemia with subsequent hypervolemia
-ADAM
-Acute postop small right apical pneumothorax
Discussed patient care with: Cardiology, Nursing, Respiratory Therapy, Pharmacy and Care Team
Subjective
Procedure
- Standard sternotomy with aortic and right atrial cannulation/CABG x 3 (In situ BRUMFIELD to distal LAD, Ao to RSVG to proximal diagonal, Ao to RSVG to distal RCA)/Endoscopic harvest of bilateral lower extremities ultimately using the left lower
extremity vein/Surgical aortic valve replacement (21 mm bioprosthesis)/Modified posterior wall isolation, left atrial maze using RF ablation/Left atrial appendage exclusion (35 mm clip)/Debridement of significant calcifications around the ostium of
the left and right coronary, by Dr. Mccoy 11/12/23
-
Date of Service: November 18, 2023
Pt c/o mild incisional pain, otherwise feels well
Objective Data
-
Lab Results
11/18/23 04:27
11/18/23 04:27
PT 18.5 Sec (11.4-14.6) H 11/12/23 19:01
INR 1.56 11/12/23 19:01
APTT 37.2 Sec (23.4-35.0) H 11/12/23 19:01
Vital Signs
Vital Signs
Temp Pulse Resp BP Pulse Ox
97.9 F 66 14 128/74 96
11/18/23 04:24 11/18/23 04:23 11/18/23 04:24 11/18/23 04:23 11/18/23 04:24
CT Intake/Output/Weight
11/17/23 11/17/23 11/18/23
06:59 18:59 06:59
Intake Total 975 / 975
Output Total 1200 / 2700 1125 / 1125
Balance -1200 / -2220 -150 / -150
SaO2: 96 (RA)
Physical Exam
-
General: Awake, Oriented and AOx3
Cardiovascular: Regular rate & rhythm, No Murmurs, No Rub and No Gallop
Respiratory: Decreased Breath Sounds (at bases, otherwise clear)
Sternum: Stable
Incision: Clean, Dry, Intact and Dressing Intact
Extremities: Edema +1
Data Reviewed
-
Lab Results: Results Reviewed
Medications: Active Meds Reviewed
Chest X-Ray: Report Reviewed and Image Reviewed
ECG: Report Reviewed and Image Reviewed
[2023-11-18 05:55] VITALS: BMI 38.4
[2023-11-18] MEDS: TYLENOL 1000 MG PO (05:57)
--- NOTE | 2023-11-18 07:00 | PTCARENOTE ---
Bedside walking rounds report received. Patient seen on rounds oob in chair on room air. NSR. Ambulating room and hallway. Vitals stable. Probable home today.
[2023-11-18 08:00] VITALS: BP 109/59
[2023-11-18] MEDS: PT'S OWN INSULIN PUMP - NovoLOG 4 UNIT SC (08:02)
[2023-11-18 08:04] LABS: Glucose - Point of Care 108 mg/dl (70-99)
[2023-11-18 08:25] VITALS: BP 109/59
[2023-11-18] MEDS: PROTONIX 40 MG PO (08:29)
[2023-11-18] MEDS: LASIX 40 MG IV (08:29)
[2023-11-18] MEDS: BETAPACE 40 MG PO (08:30)
[2023-11-18] MEDS: FEOSOL 325 MG PO (08:30)
[2023-11-18] MEDS: VITAMIN D3 (cholecalciferol) 50 MCG PO (08:30)
[2023-11-18] MEDS: PLAVIX 75 MG PO (08:31)
[2023-11-18] MEDS: VITAMIN C 500 MG PO (08:31)
[2023-11-18] MEDS: AUGMENTIN 500 MG/125 MG 1 TABLET PO (08:31)
[2023-11-18] MEDS: LIDOCAINE 4% PATCH TOPICAL (08:33)
[2023-11-18] MEDS: KCL 20 MEQ PO (08:33)
[2023-11-18] MEDS: SENOKOT-S PO (08:43)
--- NOTE | 2023-11-18 11:30 | PTCARENOTE ---
Patient went up and down 12 steps: proper technique taught and demonstrated correctly by patient: see post activity vitals.
[2023-11-18 11:31] VITALS: BP 126/65
[2023-11-18 11:33] VITALS: BP 126/65
--- NOTE | 2023-11-18 12:00 | PTCARENOTE ---
No acute changes. After doing 12 steps, it was noted that left upper leg svg site was oozing small amt of serosanguineous drainage on floor: maile abd over same and Chinyere Kaufman PA-c aware. No new orders at this time. Patient is clear for discharge. Shower
before home.
--- NOTE | 2023-11-18 18:25 | W.DCSUMMARY ---
Discharge Summary
Discharge Data
Date of Admission: 11/06/23
Date of Discharge: 11/18/23
-
Pending Results: No
Hospital Course
Patient is a 63-year-old female initially admitted to [facility] on 820 with unstable angina. She had a history of a OR and PCI and drug-eluting stents to her LAD. She also had a history of moderate aortic stenosis and ejection
fraction was noted to be 65%.
Past medical history of type I diabetic on an insulin pump, diabetic nephropathy, paroxysmal atrial fibrillation, status post ablation, PSVT status post ablation 2020, hypertension, hyperlipidemia, obesity status post gastric bypass with a Rad-en-Y
procedure. She underwent cardiac catheterization which revealed two-vessel coronary artery disease and she was transferred to [facility] for surgical revascularization. On admission she was found to have a urinary tract infection and was
treated with a course of antibiotics. She also underwent a Plavix washout prior to surgery. She was seen in consultation by Dr. Devon Mccoy and she consented to surgery. On 11/12/2023 she was brought to the operating room where she underwent
coronary artery bypass grafting with 3 distal anastomoses. The left internal mammary artery was utilized to bypass the LAD. 2 separate saphenous vein grafts were placed to the diagonal and right coronary artery. She also underwent aortic valve
replacement with a 21 mm Inspira's bioprosthetic valve. She also underwent maze and a left atrial appendage clipping with a #35 AtriClip. She tolerated the procedure well and postoperative echo looked good no PVL. She was initially supported on
low-dose Levophed and was able to be extubated later that day.
Postoperative day 1 her monitoring lines were discontinued. She had been weaned off Levophed and did require a short course of IV fluids for low urine output. She was started on beta-blockers and diuresed.
Postoperative day #2 again she received 60 mg IV Lasix and was started on a Bumex drip for low urine output. She received 1 unit of packed red blood cells for postoperative anemia. Pleural chest tube was removed and she began to ambulate with
cardiac rehabilitation. Her insulin drip had been discontinued and she started back on her own insulin pump.
Postoperative day #3 she was given Diamox along with IV Bumex with good diuresis. Her Forman was able to be removed and her temporary pacing wires discontinued. Her mediastinal chest tube was removed. She was resumed on her home dose of sotalol
per cardiology and her amiodarone was discontinued.
Postoperative day 4 her weight was slowly trending down and she was continued on IV Bumex along with p.o. Diamox. She had good urine output and she continued to slowly ambulate.
Postoperative day #5 she was restarted on her Xarelto and her aspirin was stopped. Plan to continue Xarelto and Plavix. Her weight was slowly returning to baseline her O2 sat was 92% on room air, and chest x-ray revealed small bilateral effusions.
She was continued on Bumex 1 mg twice daily. Blood pressure was stable. She was ambulating increased distances without difficulty.
Postoperative day #6 she was afebrile heart rate was 66 regular blood pressure 128/74 and her O2 sat on room air was 96%. Her weight was down 4 pounds from yesterday and she was slowly returning to her baseline weight. She was now ready for
discharge. She did have a foul-smelling urine which was sent, culture pending at time of discharge. She was afebrile and white blood cell count was 8.7. She was given a prescription for Augmentin.
At time of discharge she was afebrile heart rate was 66 and regular. Blood pressure was 128/74 and room air O2 sat was 96%.
Discharge labs are as follows white blood cell count 8.7, hemoglobin 9.7, hematocrit 28.4, platelets 166, BUN 25 and creatinine 0.9. Blood sugar this morning was 119. She was given a full set of discharge instructions and will be seen by her
transitional care nurses after her arrival at home. She was given an appointment to follow-up with Dr. Mccoy. And she will have a follow-up appointment at [facility] with Dr. Lopez.
Discharge Plan
-
Patient Disposition: Home (Routine Discharge)
Discharge Diagnosis/Procedures: AVR/CABG
Condition: Fair
Diet: Low Cholesterol, Low Sodium and Diabetic, Carb Controlled
Activity: No strenuous activity
Driving Restrictions: Not until seen by your Dr
Bathing Restrictions: OK to Shower
Other Services: Cardiac Rehab
Specialty Instructions: Weigh Daily- Call MD for wt gain/loss 3 lbs overnight/5 lbs in 1 week
Activity Restrictions/Additional Instructions:
ACTIVITY:
-No strenuous activity: no heavy lifting, pushing, pulling anything over 15 pounds for one month
-continue to use stairs as tolerated
DRIVING RESTRICTIONS:
-No driving for one month or until approved by your surgeon
WOUND CARE:
-Shower daily. Use soap & water.
-No lotions, creams or powders on incision area.
DIET:
-continue a low fat/low cholesterol diet.
-IF you are diabetic, continue carb controlled diet.
CARDIAC REHAB:
-Please make appointment to start in 5-6 weeks with your local hospital program. (See Cardiac Rehabilitation Discharge Booklet).
SPECIALTY INSTRUCTIONS:
-Weigh yourself daily. Call your physician for any weight gain/loss of 3 lbs overnight or 5 lbs in one week.
-REPORT any clicking noise or uneven appearance of your sternum to your surgeon immediately.
-If you smoke, you are instructed to quit. The [place] smoking hotline phone number is [phone]
Referrals:
CT Transitional Care Nurse [Outside]
(
The Cardiothoracic Transitional Care Nurse will call you to set up a visit in 1-2 days.)
Gaurav Schreiber, [Family Provider] -
Will Bay MD [Active] - 12/27/23 1:40 pm
Devon Mccoy MD [Active] - 12/20/23 2:30 pm
Additional Discharge Medication Instructions: xarelto 20mg changed to 15mg
Stop dexlansoprazole
stop famotidine changed to pantoprazole
stop isosorbide
stop losartan
stop nitroglycerin
Prescriptions:
New
acetaminophen 325 mg Tablet
650 mg PO Q4HPRN PRN (Reason: mild pain,headache,temp >101F ) Qty: 1 0RF
clopidogrel 75 mg Tablet
75 mg PO DAILY Qty: 30 3RF
pantoprazole 40 mg Tablet,Delayed Release (Dr/Ec)
40 mg PO DAILY Qty: 30 3RF
Xarelto 15 mg Tablet
15 mg PO QPM Qty: 30 1RF
Pt's Own Ins. Pump Aspart [Pt's Own Insulin Pump - Novolog]
See Rx Instructions .ROUTE .COMPLEX Qty: 1 0RF
Rx Instructions:
use as instructed
amoxicillin-pot clavulanate 500-125 mg tablet
1 tab PO BID Qty: 7 0RF
sennosides-docusate sodium 8.6-50 mg Tablet
1 tab PO Q12 Qty: 20 1RF
Continued
atorvastatin 40 mg Tablet
40 mg PO DAILY
sotalol 80 mg Tablet
40 mg PO BID
gabapentin 300 mg Capsule
900 mg PO QHS
ezetimibe 10 mg Tablet
10 mg PO DAILY
cholecalciferol (vitamin D3) 50 mcg (2,000 unit) Tablet
50 mcg PO DAILY
potassium chloride 20 mEq Tablet,Er Particles/Crystals
20 meq PO DAILY Qty: 10 1RF
furosemide 20 mg Tablet
20 mg PO BID Qty: 20 1RF
Discontinued
isosorbide mononitrate 60 mg Tablet Extended Release 24 Hr
120 mg PO DAILY
Rx Instructions:
HOLD for SBP below 110 andf HR below 60
famotidine 20 mg Tablet
20 mg PO HS
losartan 25 mg Tablet
25 mg PO DAILY
Rx Instructions:
HOLD for SBP below 100
nitroglycerin 0.4 mg Tablet, Sublingual
0.4 mg SUBLINGUAL Q5M PRN (Reason: chest pain )
Rx Instructions:
Sublingual every 5 mins as needed for chest tightness (repeat x2 if needed and call MD if symptoms not relieved)
dexlansoprazole 60 mg Capsule,Biphase Delayed Releas
60 mg PO DAILY
Xarelto 20 mg Tablet
20 mg PO QPM
Discharge Orders:
Discharge Patient (As Directed); Ordered 11/18/23
Ordered By: Josue Kaufman
Care Plan Goals
Care Plan Goals:
Problem: Readiness for enhanced knowledge related to diagnosis and treatment plan
Goal: Understand your diagnosis and treatment plan needs, including medications if applicable.
Instructions: Know your diagnosis, underlying causes and treatment plan options, including medications if applicable. Consult with your health care team to learn about your diagnosis and treatment plan, including medications if applicable.
Discharge Date and Time
Discharge Date/Time: 11/18/23 14:15
Print Language: PERSIAN
== END 2023-11-18 14:15 | disposition home or self-care (01) | DRG 219 ==
LOC: CVICU 20:26
PROVIDERS: Anesthesiology; Clinical Nurse Specialist Acute Care; Internal Medicine Cardiovascular Disease; Nurse Practitioner; Physician Assistant Surgical; ADMITTING PHYSICIAN Thoracic Surgery (Cardiothoracic Vascular Surgery); CONSULT PHYSICIAN Internal Medicine; CONSULT PHYSICIAN Internal Medicine Critical Care Medicine; FAMILY PHYSICIAN Family Medicine
PROC: 021109W Bypass Coronary Artery, Two Arteries from Aorta with Autologous Venous Tissue, Open Approach (ICD-10-PCS; 2023-11-12)
PROC: 06BP4ZZ Excision of Right Saphenous Vein, Percutaneous Endoscopic Approach (ICD-10-PCS; 2023-11-12)
PROC: 30233R1 Transfusion of Nonautologous Platelets into Peripheral Vein, Percutaneous Approach (ICD-10-PCS; 2023-11-12)
PROC: 5A1221Z Performance of Cardiac Output, Continuous (ICD-10-PCS; 2023-11-12)
PROC: 02L70CK Occlusion of Left Atrial Appendage with Extraluminal Device, Open Approach (ICD-10-PCS; 2023-11-12)
PROC: 02RF08Z Replacement of Aortic Valve with Zooplastic Tissue, Open Approach (ICD-10-PCS; 2023-11-12)
PROC: 02100Z9 Bypass Coronary Artery, One Artery from Left Internal Mammary, Open Approach (ICD-10-PCS; 2023-11-12)
PROC: B24BZZ4 Ultrasonography of Heart with Aorta, Transesophageal (ICD-10-PCS; 2023-11-12)
PROC: 02580ZZ Destruction of Conduction Mechanism, Open Approach (ICD-10-PCS; 2023-11-12)
PROC: 30233N1 Transfusion of Nonautologous Red Blood Cells into Peripheral Vein, Percutaneous Approach (ICD-10-PCS; 2023-11-12)
PROC: 06BQ4ZZ Excision of Left Saphenous Vein, Percutaneous Endoscopic Approach (ICD-10-PCS; 2023-11-12)
DX: I25.110 Atherosclerotic heart disease of native coronary artery with unstable angina pectoris (principal); I50.33 Acute on chronic diastolic (congestive) heart failure; D62 Acute posthemorrhagic anemia; T82.855A Stenosis of coronary artery stent, initial encounter; N39.0 Urinary tract infection, site not specified; J98.11 Atelectasis; N17.9 Acute kidney failure, unspecified; J93.83 Other pneumothorax; E10.21 Type 1 diabetes mellitus with diabetic nephropathy; I27.20 Pulmonary hypertension, unspecified; E10.40 Type 1 diabetes mellitus with diabetic neuropathy, unspecified; E66.01 Morbid (severe) obesity due to excess calories; I48.0 Paroxysmal atrial fibrillation; I08.0 Rheumatic disorders of both mitral and aortic valves; G47.33 Obstructive sleep apnea (adult) (pediatric); E78.00 Pure hypercholesterolemia, unspecified; I11.0 Hypertensive heart disease with heart failure; B96.20 Unspecified Escherichia coli [E. coli] as the cause of diseases classified elsewhere; I25.5 Ischemic cardiomyopathy; D69.59 Other secondary thrombocytopenia; E86.1 Hypovolemia; Y83.1 Surgical operation with implant of artificial internal device as the cause of abnormal reaction of the patient, or of later complication, without mention of misadventure at the time of the procedure; I25.2 Old myocardial infarction; Z68.38 Body mass index [BMI] 38.0-38.9, adult; Z79.02 Long term (current) use of antithrombotics/antiplatelets; Z79.4 Long term (current) use of insulin; Z79.899 Other long term (current) drug therapy; Z82.49 Family history of ischemic heart disease and other diseases of the circulatory system; Z87.891 Personal history of nicotine dependence; Z95.5 Presence of coronary angioplasty implant and graft; Z96.41 Presence of insulin pump (external) (internal); Z98.84 Bariatric surgery status
CPT/HCPCS: 88305; 88311; 70355; 71045; 71046; 71275; 74174; 80048; 80053; 80061; 81003; 81015; 82248; 82330; 82565; 82805; 82810; 82947; 82962; 83036; 83735; 84132; 84302; 84520; 85014; 85018; 85027; 85049; 85610; 85730; 86850; 86900; 86901; 86920; 87077; 87086; 87186; 93005; 93312; 93320; 93325; 93650; 93880; 93970; 94002; J2916; P9016; P9045; P9047; P9073; Q9967